=== PATIENT | male | born 1940 | race Caucasian/White ===

== ENCOUNTER 2017-08-06 12:57 | Emergency (ER) | payer MEDICARE, SELFPAY ==
[2017-08-06 14:04] VITALS: BP 140/68; PULSE 62; RESP 22; TEMP 37.1; O2SAT 95; BMI 34.9
--- NOTE | 2017-08-06 14:07 | XR_ITS ---
XR chest 2V Ordering Physician: Benita Eduardo Patient Age: 77 years: Male HISTORY: ITS.REASON: COUGH X2 MONTHS TECHNIQUE: PA and lateral chest COMPARISON : Previous 2 view chest film 01/09/2017 & June 2015 CT chest 11/27/2016 and portable chest 10/28/1816 FINDINGS When compared to multiple previous chest films I see no discrete new findings. Specifically the patient has shown some accentuation of markings at the medial left base and retrocardiac region of the stable back to CXR studies from 2014 & 2012 CXR & appears similar in both views. No convincing acute findings only mild chronic vascular markings here on prior CT chest . Mild cardiomegaly. Maite and mediastinal structures unchanged the generous right maite again noted but stable, similar to previous studies as well.. No pleural effusion or pneumothorax. Chest wall T-spine intact. IMPRESSION: 1 Nothing definite acute. . no focal acute pneumonia. Slight coarsening markings at the medial left base is been seen on multiple previous studies and thus appears to reflect mild chronic changes 2. Cardio megaly.
--- NOTE | 2017-08-06 14:30 | HMH.EDUTC ---
[facility] [place] Disposition Clinical Impression: Upper respiratory infection Qualifiers: URI type: unspecified URI Qualified Code(s): J06.9 - Acute upper respiratory infection, unspecified Disposition: Home, Self-Care Condition on Discharge: Good Instructions: Cough Additional Instructions: Follow up with family doctor Return if needed Take medication as prescribed * Warm salt water gargles for throat irritation *Warm fluids *Sore throat lozenges *Sleep elevated *humidifier or vaporizer Lots of rest Prescriptions: Azithromycin [Z-Willian 250mg Tab] 250 mg PO UD DOSE PK #6 tab Referrals: Saba Sosa MD [Primary Care Provider] - Time of Disposition: 15:15 Medical Decision Making - Medical Records Medical records reviewed: Yes: I reviewed the patient's medical records. Vital Signs: 08/06/17 14:04 Temperature 98.7 F Temperature Source Temporal Artery Scan Pulse Rate [Right Brachial] 62 Respiratory Rate 22 Blood Pressure [Right Arm] 140/68 Blood Pressure Mean [Right Arm] 92 Blood Pressure Source [Right Arm] Automatic Cuff Blood Pressure Position [Right Arm] Sitting 02 Sat by Pulse Oximetry 95 Oxygen Delivery Method Room Air - Radiology Data #1 Image(s): Chest - Rudolph Inquiry Pt receiving controlled substance: No Rudolph was queried for this patient: No [facility] [place] HPI - General Stated complaint: soa Mode of Arrival: Family Vehicle Source of Information: Patient Limitations: No Limitations Description of Symptoms (Recalled from Triage Doc. by RN): COUGH AND CONGESTION FOR 2 MONTHS. HEENT Symptoms (Recalled from RN notes): No Resp Symptoms (Recalled from RN notes): Yes (COUGH AND CONGESTION) Skin Symptoms (Recalled from RN notes): No MS Symptoms (Recalled from RN notes): No Functional Status (Recalled from RN notes): NA - History of Present Illness Provider Complaint: Patient state that he has been having cough and chest congestion for over 2 months State that he has seen family doctor several times and was given medication State that while he is taking the medication he feels better but as soon as he completes the medication it feels like he gets sick again - Related Data Home Medications Medication Instructions Recorded Confirmed Amlodipine Besylate [Norvasc 5mg 5 mg PO DAILYDM 08/06/17 08/06/17 tablet] Atorvastatin Calcium [Atorvastatin 10 mg PO DAILY 08/06/17 08/06/17 10mg Tab] Carvedilol [Carvedilol 25mg Tab] 25 mg PO DAILY 08/06/17 08/06/17 Lisinopril/Hydrochlorothiazide 12.5 mg PO DAILY 08/06/17 08/06/17 [Lisinopril-Hctz 20-12.5 mg Tab] Mycophenolate Mofetil [Cellcept] 250 mg PO BID 08/06/17 08/06/17 Previous Rx's Medication Instructions Recorded Azithromycin [Z-Willian 250mg Tab] 250 mg PO UD DOSE PK #6 tab 08/06/17 Allergies Allergy/AdvReac Type Severity Reaction Status Date / Time No Known Allergies Allergy Verified 08/06/17 14:12 - Worker's Comp Is this a Worker's Comp case?: No H History I have reviewed the patient's past medical history: Yes Amputation: No Fractures: No - *Social History Smoking Status: Never smoker Alcohol Intake: never - Psychiatric History Expresses thoughts of harming self/others: None Suicide Plan Description: No Plan ROS Obtained: Yes All systems reviewed & no additional complaints - Respiratory Respiratory: Yes chest congestion, Yes cough Physical Exam - General General appearance: alert, in no apparent distress - Chest Chest inspection: Present: normal inspection, symmetric chest wall rise. Absent: tenderness - Respiratory Respiratory exam: Present: wheezes. Absent: respiratory distress, accessory muscle use - Expanded Respiratory Exam Location: Lower: wheezes, rhonchi - Cardiovascular Cardiovascular exam: Present: regular rate, normal rhythm. Absent: JVD - Neurological Exam Neurological exam: Present: alert, oriented X3
--- NOTE | 2017-08-06 14:35 | ED_ITS ---
[facility] Disposition Clinical Impression: Upper respiratory infection Qualifiers: URI type: unspecified URI Qualified Code(s): J06.9 - Acute upper respiratory infection, unspecified Disposition: Home, Self-Care Condition on Discharge: Good Instructions: Cough Additional Instructions: Follow up with family doctor Return if needed Take medication as prescribed * Warm salt water gargles for throat irritation *Warm fluids *Sore throat lozenges *Sleep elevated *humidifier or vaporizer Lots of rest Prescriptions: Azithromycin [Z-Willian 250mg Tab] 250 mg PO UD DOSE PK #6 tab Referrals: Saba Sosa MD [Primary Care Provider] - Time of Disposition: 15:15 Medical Decision Making - Medical Records Medical records reviewed: Yes: I reviewed the patient's medical records. Vital Signs: 08/06/17 14:04 Temperature 98.7 F Temperature Source Temporal Artery Scan Pulse Rate [Right Brachial] 62 Respiratory Rate 22 Blood Pressure [Right Arm] 140/68 Blood Pressure Mean [Right Arm] 92 Blood Pressure Source [Right Arm] Automatic Cuff Blood Pressure Position [Right Arm] Sitting 02 Sat by Pulse Oximetry 95 Oxygen Delivery Method Room Air - Radiology Data #1 Image(s): Chest - Rudolph Inquiry Pt receiving controlled substance: No Rudolph was queried for this patient: No [facility] HPI - General Stated complaint: soa Mode of Arrival: Family Vehicle Source of Information: Patient Limitations: No Limitations Description of Symptoms (Recalled from Triage Doc. by RN): COUGH AND CONGESTION FOR 2 MONTHS. HEENT Symptoms (Recalled from RN notes): No Resp Symptoms (Recalled from RN notes): Yes (COUGH AND CONGESTION) Skin Symptoms (Recalled from RN notes): No MS Symptoms (Recalled from RN notes): No Functional Status (Recalled from RN notes): NA - History of Present Illness Provider Complaint: Patient state that he has been having cough and chest congestion for over 2 months State that he has seen family doctor several times and was given medication State that while he is taking the medication he feels better but as soon as he completes the medication it feels like he gets sick again - Related Data Home Medications Medication Instructions Recorded Confirmed Amlodipine Besylate [Norvasc 5mg 5 mg PO DAILYDM 08/06/17 08/06/17 tablet] Atorvastatin Calcium [Atorvastatin 10 mg PO DAILY 08/06/17 08/06/17 10mg Tab] Carvedilol [Carvedilol 25mg Tab] 25 mg PO DAILY 08/06/17 08/06/17 Lisinopril/Hydrochlorothiazide 12.5 mg PO DAILY 08/06/17 08/06/17 [Lisinopril-Hctz 20-12.5 mg Tab] Mycophenolate Mofetil [Cellcept] 250 mg PO BID 08/06/17 08/06/17 Previous Rx's Medication Instructions Recorded Azithromycin [Z-Willian 250mg Tab] 250 mg PO UD DOSE PK #6 tab 08/06/17 Allergies Allergy/AdvReac Type Severity Reaction Status Date / Time No Known Allergies Allergy Verified 08/06/17 14:12 - Worker's Comp Is this a Worker's Comp case?: No H History I have reviewed the patient's past medical history: Yes Amputation: No Fractures: No - *Social History Smoking Status: Never smoker Alcohol Intake: never - Psychiatric History Expresses thoughts of harming self/others: None Suicide Plan Description: No Plan ROS Obtained: Yes All systems review
== END 2017-08-06 15:23 | disposition home or self-care (01) ==
PROVIDERS: Emergency Provider Nurse Practitioner; Family Provider Family Medicine; PCP Family Medicine
DX: J06.9 Acute upper respiratory infection, unspecified (principal)
CPT/HCPCS: 71046; 99202; 99282

== ENCOUNTER → 2018-09-16 10:25 | Outpatient (CLI) | payer MEDICARE, SELFPAY ==
[2018-09-16 10:34] LABS: Microscopic, Urine URINE MICROSCOPIC (MICROSCOPIC)
[2018-09-16 10:50] LABS: Basophils # 0.1 K/mm3 (0-0.2); Basophils % 0.7 % (0.1-2.0); Eosinophils # 0.4 K/mm3 (0.0-0.4); Eosinophils % 4.1 % (0.1-12.0); Hematocrit 38.8 % (42.0-52.0); Hemoglobin 12.6 g/dL (14.1-18.0); Lymphocytes # 2.3 K/mm3 (0.7-4.5); Lymphocytes % 26.7 % (10-50); Mean Corpuscular HGB Conc 32.4 g/dL (31.8-35.4); Mean Corpuscular Hemoglobin 28.5 pg (27.0-31.2); Mean Corpuscular Volume 87.9 fl (80-94); Mean Platelet Volume 8.4 fl (7.4-10.4); Monocytes # 0.7 K/mm3 (0.1-1.0); Monocytes % 7.8 % (1.7-9.3); Neutrophils # 5.2 K/mm3 (1.8-7.8); Neutrophils % 60.8 % (37.0-80.0); Platelet Count 226 K/mm3 (142-424); Red Blood Count 4.41 M/mm3 (4.60-6.20); Red Cell Distribution Width 14.1 % (11.5-17.5); White Blood Count 8.6 K/mm3 (4.8-10.8)
[2018-09-16 10:53] LABS: Appearance,Urine CLEAR (Clear); Bilirubin,Urine Negative (Negative); Blood, Urine Negative (Negative); Color,Urine YELLOW (Yellow); Glucose,Urine (UA) Negative (Negative); Ketones,Urine Negative (Negative); Leukocyte Esterase,Urine Negative (Negative); Nitrate,Urine Negative (Negative); PH,Urine 6.5 (5.0-8.5); Protein,Urine Negative (Negative); Urobilinogen,Urine 0.2 EU/dl (0.2)
[2018-09-16 11:02] LABS: Creatinine,Urine Random 63 mg/dL (20-320); Total Protein,Urine Random 10.9 mg/dL (0.0-11.9)
[2018-09-16 11:07] LABS: Bacteria,Urine Trace /lpf; Squamous Epithelial Cell,Urine Occasional #/hpf (0-5); WBC,Urine Occasional #/hpf (0-3)
[2018-09-16 11:46] LABS: Anion Gap 14.7 mEq/L (5-15); Blood Urea Nitrogen 41 mg/dL (7-18); Calcium 9.9 mg/dL (8.5-10.1); Carbon Dioxide 30 mmol/L (21.0-32.0); Chloride 105 mmol/L (98-107); Creatinine,Serum 2.15 mg/dL (0.70-1.30); Estimated Glomerular Filt Rate 30 ml/min (>60); GFR (African American) 36 ML/MIN (>60); Phosphorous 3.7 mg/dL (2.4-4.9); Potassium 3.7 mmoL/L (3.5-5.1); Sodium 146 mmol/L (136-145)
[2018-09-16 11:58] LABS: Glucose 91 mg/dL (74-106)
[2018-09-17 07:32] LABS: Vitamin D 25 Hydroxy 30.1 ng/mL (30.0-100.0)
[2018-09-17 15:32] LABS: Parathyroid Hormone Intact 53 pg/mL (15-65)
== END ==
PROVIDERS: Visit Provider Internal Medicine Nephrology
DX: N18.4 Chronic kidney disease, stage 4 (severe) (principal)
CPT/HCPCS: 36415; 80069; 81001; 82570; 82652; 83970; 84155; 85025

== ENCOUNTER → 2018-09-23 14:19 | Outpatient (POV) | payer MEDICARE, SELFPAY | PROVIDERS: Visit Provider Internal Medicine Nephrology | DX: Z00.00 Encounter for general adult medical examination without abnormal findings (principal) ==

== ENCOUNTER → 2018-11-25 14:15 | Outpatient (POV) | payer MEDICARE, SELFPAY | PROVIDERS: Visit Provider Internal Medicine Nephrology | DX: Z00.00 Encounter for general adult medical examination without abnormal findings (principal) ==

== ENCOUNTER → 2018-12-12 10:39 | Outpatient (CLI) | payer MEDICARE, SELFPAY ==
[2018-12-12 11:59] LABS: Creatinine,Urine Random 98 mg/dL (20-320); Total Protein,Urine Random 8.8 mg/dL (0.0-11.9)
[2018-12-12 12:46] LABS: Anion Gap 16.6 mEq/L (5-15); Blood Urea Nitrogen 47 mg/dL (7-18); Calcium 9.3 mg/dL (8.5-10.1); Carbon Dioxide 28 mmol/L (21.0-32.0); Chloride 104 mmol/L (98-107); Creatinine,Serum 2.49 mg/dL (0.70-1.30); Estimated Glomerular Filt Rate 25 ml/min (>60); GFR (African American) 30 ML/MIN (>60); Glucose 98 mg/dL (74-106); Phosphorous 3.2 mg/dL (2.4-4.9); Potassium 3.6 mmoL/L (3.5-5.1); Sodium 145 mmol/L (136-145)
== END ==
PROVIDERS: Visit Provider Internal Medicine Nephrology
DX: N18.4 Chronic kidney disease, stage 4 (severe) (principal)
CPT/HCPCS: 36415; 80069; 82570; 84155

== ENCOUNTER → 2019-01-07 08:34 | Outpatient (CLI) | payer MEDICARE, SELFPAY ==
--- NOTE | 2019-01-07 08:40 | XR_ITS ---
XR chest 2V HISTORY: ITS.REASON: SOB ORDERING PHYSICIAN: Saba Sosa MD PATIENT AGE: 79 years COMPARISON: 10/30/2018 FINDINGS: There is mild cardiomegaly without failure. There are mild atelectatic changes in the right perihilar region. The remaining lungs are clear. No acute bony findings. IMPRESSION: Cardiomegaly with mild right perihilar atelectatic change
== END ==
PROVIDERS: PCP Family Medicine; Visit Provider Family Medicine
DX: R06.02 Shortness of breath (principal)
CPT/HCPCS: 71046

== ENCOUNTER → 2019-01-15 08:01 | Outpatient (CLI) | payer MEDICARE, SELFPAY ==
[2019-01-15 09:25] LABS: Albumin Level 3.7 gm/dL (3.4-5.0); Anion Gap 16.5 mEq/L (5-15); Blood Urea Nitrogen 50 mg/dL (7-18); Calcium 9.2 mg/dL (8.5-10.1); Carbon Dioxide 27 mmol/L (21.0-32.0); Chloride 103 mmol/L (98-107); Creatinine,Serum 2.45 mg/dL (0.70-1.30); Estimated Glomerular Filt Rate 25 ml/min (>60); GFR (African American) 31 ML/MIN (>60); Glucose 174 mg/dL (74-106); Phosphorous 3.4 mg/dL (2.4-4.9); Potassium 3.5 mmoL/L (3.5-5.1); Sodium 143 mmol/L (136-145)
[2019-01-15 12:53] LABS: Creatinine,Urine Random 67 mg/dL (20-320); Total Protein,Urine Random 10.2 mg/dL (0.0-11.9)
== END ==
PROVIDERS: Visit Provider Internal Medicine Nephrology
DX: N18.4 Chronic kidney disease, stage 4 (severe) (principal)
CPT/HCPCS: 36415; 80069; 82570; 84155

== ENCOUNTER → 2019-01-21 10:34 | Outpatient (CLI) | payer MEDICARE, SELFPAY ==
--- NOTE | 2019-01-21 10:37 | CA_ITS ---
PROCEDURE: 2-D M-mode and color Doppler study INDICATIONS FOR THE TEST: Chest pain COPD Heart Murmur Tobacco SmokingEX Palpitations Fatigue Syncope Edema HypertensionXDiabetes MellitusXX Rheumatic Fever SOBXDOEXObesityXHyperlipidemia Family History HD Additional History CHF TDS OBESITY PATIENT INFORMATION HEIGHT: 69 WEIGHT:240 GENDER: Male B/P:184/78 2-D/M-MODE INTERPRETATION: 2-D MEASUREMENTS OBSERVED VALUES IN CMS Right Ventricular Dimension (RVDd) 2.0 Interventricular Septum (Thickness)(IVsd) 1.0 Left Ventricular Internal Dimensions(LVIDd) 5.0 Left Ventricular Posterior Wall (Thickness)(LVPWd) 1.0 Aortic Root 4.0 Aortic Cusp Separation 1.2 Left Atrial Dimensions (LAD) 3.0 2D 1. Left atrium is mildly enlarged, left ventricle is normal size, visually estimated ejection fraction of 50% with no obvious regional wall motion abnormality, endocardial surfaces are poorly visualized 2. The right atrium and right ventricle are mildly enlarged with normal contractility. 3. The aortic valve is minimally thickened and fibrosed. 4. The mitral and tricuspid valve leaflets are minimally thickened 5. The pulmonic valve is poorly present. 6. No significant pericardial effusion noted. DOPPLER INTERROGATION: Doppler interrogation of the aortic, mitral and tricuspid valvular presence of mild mitral and tricuspid regurgitation, tricuspid regurgitation jet velocity is inadequate for calculation of the right ventricular systolic pressure, grade 2 diastolic dysfunction seen with tissue Doppler evidence of raised left atrial pressure. Inferior vena cava is not well visualized CONCLUSION: 1. Biatrial enlargement, normal left ventricular size, visually estimated ejection fraction 50% with no regional wall motion abnormality, grade 2 diastolic dysfunction seen with tissue Doppler evidence of raised left atrial pressure. 2. Thickened and calcified aortic valve without aortic stenosis aortic insufficiency. 3. Mild mitral and tricuspid regurgitation 4. No significant pericardial effusion noted.
== END ==
PROVIDERS: PCP Family Medicine; Visit Provider Family Medicine
DX: R06.02 Shortness of breath (principal); I50.9 Heart failure, unspecified
CPT/HCPCS: 93306

== ENCOUNTER → 2019-01-29 13:57 | Outpatient (POV) | payer MEDICARE, SELFPAY | PROVIDERS: Visit Provider Internal Medicine Nephrology | DX: Z00.00 Encounter for general adult medical examination without abnormal findings (principal) ==

== ENCOUNTER → 2019-04-08 08:42 | Outpatient (CLI) | payer MEDICARE, SELFPAY ==
--- NOTE | 2019-04-08 08:51 | XR_ITS ---
PROCEDURE: XR CERVICAL SPINE 5V CLINICAL INDICATION: LT ARM PAIN, COMPARISON: No exams were available for comparison FINDINGS: There is normal alignment. There has been prior fusion of C5 and C6 vertebral bodies. There is mild degenerative disc disease at C6-C7. There is mild retrolisthesis of C3 on C4 of 3 mm. Mild foraminal narrowing is noted on the right at C3-C4. No fracture or dislocation. No lytic or blastic change. Incidental note made of carotid artery calcification. No cervical ribs. IMPRESSION: Postsurgical changes with mild degenerative disc disease at C6-C7 and mild right foraminal narrowing at C3-C4 Dictated by: Xiang Zayas MD 04/08/2019 09:53 Electronically signed by Xiang Zayas MD in [place] 04/08/2019 09:53
== END ==
PROVIDERS: PCP Family Medicine; Visit Provider Family Medicine
DX: M79.602 Pain in left arm (principal)
CPT/HCPCS: 72050

== ENCOUNTER → 2019-04-22 08:54 | Outpatient (CLI) | payer MEDICARE, SELFPAY ==
[2019-04-22 09:22] LABS: Basophils % 0.6 % (0.1-2.0); Eosinophils # 0.2 K/mm3 (0.0-0.4); Eosinophils % 3.5 % (0.1-12.0); Hematocrit 37.3 % (42.0-52.0); Hemoglobin 11.7 g/dL (14.1-18.0); Lymphocytes # 2.4 K/mm3 (0.7-4.5); Lymphocytes % 36.1 % (10-50); Mean Corpuscular HGB Conc 31.4 g/dL (31.8-35.4); Mean Corpuscular Hemoglobin 27.8 pg (27.0-31.2); Mean Corpuscular Volume 88.4 fl (80-94); Mean Platelet Volume 7.8 fl (7.4-10.4); Monocytes # 0.4 K/mm3 (0.1-1.0); Monocytes % 6.8 % (1.7-9.3); Neutrophils # 3.5 K/mm3 (1.8-7.8); Neutrophils % 53.1 % (37.0-80.0); Platelet Count 243 K/mm3 (142-424); Red Blood Count 4.21 M/mm3 (4.60-6.20); Red Cell Distribution Width 14.9 % (11.5-17.5); White Blood Count 6.6 K/mm3 (4.8-10.8)
[2019-04-22 10:34] LABS: Anion Gap 16.8 mEq/L (5-15); Blood Urea Nitrogen 54 mg/dL (7-18); Calcium 9.4 mg/dL (8.5-10.1); Carbon Dioxide 26 mmol/L (21.0-32.0); Chloride 102 mmol/L (98-107); Creatinine,Serum 2.56 mg/dL (0.70-1.30); Estimated Glomerular Filt Rate 24 ml/min (>60); GFR (African American) 29 ML/MIN (>60); Glucose 164 mg/dL (74-106); Phosphorous 4.1 mg/dL (2.4-4.9); Potassium 3.8 mmoL/L (3.5-5.1); Sodium 141 mmol/L (136-145)
== END ==
PROVIDERS: Visit Provider Internal Medicine Nephrology
DX: N18.4 Chronic kidney disease, stage 4 (severe) (principal)
CPT/HCPCS: 36415; 80069; 85025

== ENCOUNTER → 2019-04-23 15:27 | Outpatient (POV) | payer MEDICARE, SELFPAY | PROVIDERS: Visit Provider Internal Medicine Nephrology | DX: Z00.00 Encounter for general adult medical examination without abnormal findings (principal) ==

== ENCOUNTER → 2019-09-17 09:47 | Outpatient (CLI) | payer MEDICARE, SELFPAY ==
[2019-09-17 11:28] LABS: Albumin Level 4.1 g/dl (3.5-5.0); Chloride 104 mmol/L (98-107); Potassium 3.8 mmoL/L (3.5-5.1); Sodium 143 mmol/L (136-145)
[2019-09-17 11:31] LABS: Anion Gap 13.8 mEq/L (5-15); Blood Urea Nitrogen 36 mg/dl (9-20); Calcium 9.9 mg/dl (8.4-10.2); Carbon Dioxide 29 mmol/L (22.0-30.0); Estimated Glomerular Filt Rate 29 ml/min (>60); GFR (African American) 35 ML/MIN (>60); Glucose 118 mg/dl (74-100)
== END ==
PROVIDERS: Visit Provider Internal Medicine Nephrology
DX: N18.4 Chronic kidney disease, stage 4 (severe) (principal)
CPT/HCPCS: 36415; 80069

== ENCOUNTER → 2019-09-24 13:33 | Outpatient (POV) | payer MEDICARE, SELFPAY | PROVIDERS: PCP Internal Medicine Nephrology; Visit Provider Internal Medicine Nephrology | DX: Z00.00 Encounter for general adult medical examination without abnormal findings (principal) ==

== ENCOUNTER → 2019-12-24 09:35 | Outpatient (CLI) | payer MEDICARE, SELFPAY ==
--- NOTE | 2019-12-24 09:51 | XR_ITS ---
PROCEDURE: XR CHEST CHP 1V CLINICAL HISTORY: COVID TESTING Cough and fever with weakness COMPARISON: WO CT CHEST W/O CONTRAST from 11/27/2016 CXR CHEST(2 VIEWS-NOT PORTABLE) from 01/09/2017 CXR2V XR chest 2V from 08/06/2017 CXR1VP XR chest portable from 10/30/2018 FINDINGS: The there is cardiomegaly without failure. There is overall increased density of the right lung compared to the left which in part may be due to the technique. There is however suspected infiltrate in the right perihilar and right lower lobe region. The left lung is clear. There are multiple small opacities overlying the lower cervical spine and may be due to prior surgery IMPRESSION: Suspected right perihilar and right lower lobe infiltrate/pneumonia Dictated by: Xiang Zayas MD 12/24/2019 10:07 Electronically signed by Xiang Zayas MD in [place] 12/24/2019 10:07
[2019-12-24 10:57] LABS: Coronavirus 19 IgG Antibody Negative (Negative); Coronavirus 19 IgM Antibody Negative (Negative)
== END ==
PROVIDERS: PCP Family Medicine; Visit Provider Family Medicine
DX: Z03.818 Encounter for observation for suspected exposure to other biological agents ruled out (principal)
CPT/HCPCS: 36415; 71010; 86328

== ENCOUNTER 2020-02-26 19:00 | Emergency (ER) | payer MEDICARE, SELFPAY ==
[2020-02-26 19:02] VITALS: BP 139/74; PULSE 86; RESP 16; TEMP 37; O2SAT 98; BMI 32.5
[2020-02-26 19:47] LABS: Microscopic, Urine URINE MICROSCOPIC (MICROSCOPIC)
--- NOTE | 2020-02-26 19:58 | CT_ITS ---
PROCEDURE: CT ABDOMEN PELVIS WO CON CLINICAL INDICATION: blood in urine Gross hematuria COMPARISON: No exams were available for comparison TECHNIQUE: Axial images obtained with sagittal and coronal reformats. All CT scans at the facility use one or more dose reduction, viz: automated exposure control, ma/kV adjustment per patient size (including targeted exams where dose is matched to indication, i.e. head), or iterative reconstruction technique. FINDINGS: LOWER THORAX: Coronary artery calcifications which are extensive. 9 mm noncalcified nodule right middle lobe. ABDOMEN & PELVIS: The liver, gallbladder, spleen, adrenal glands, and pancreas have an unremarkable unenhanced appearance. There are multiple bilateral renal cyst measuring up to 5 cm on the left and 5 cm on the right.. No renal or ureteral calculi. No hydronephrosis. There is a Everett catheter in place. The urinary bladder is collapsed. There is some increased density within the urinary bladder which could be due to some underlying hemorrhage. There is a small amount of intraluminal gas also noted. There is thickening of the urinary bladder wall. No intestinal obstruction or free air. There is mild increased density of the central mesenteric fat with scattered small mesenteric lymph nodes nonspecific no evidence of appendicitis. There is colonic diverticulosis but no evidence of diverticulitis degenerative changes are present in the lumbar spine. IMPRESSION: 1. Decompressed urinary bladder with Everett catheter with a small amount of intraluminal bladder gas which could be due to instrumentation or superimposed infection. Small amount of mildly hyperdense intraluminal bladder material noted adjacent to the tip of the Everett catheter suggestive of blood. Diffuse bladder wall thickening which could be related to under distension and or cystitis. 2. Bilateral renal cysts with nonspecific stranding of the perinephric renal fat. 3. 9 mm right middle lobe nodule. Recommend [address] without and with contrast follow-up 4. Slight increased density of the mesenteric fat centrally with small nodes nonspecific but could be seen with mesenteric adenitis Dictated b Xiang Zayas MD 02/27/2020 05:32 Xiang Zayas MD in [place] 02/27/2020 05:32
[2020-02-26 20:02] VITALS: BP 134/73; PULSE 81; RESP 16; O2SAT 98
[2020-02-26 20:07] LABS: Basophils # 0.1 K/mm3 (0-0.2); Basophils % 0.7 % (0.1-2.0); Chloride 103 mmol/L (98-107); Eosinophils # 0.3 K/mm3 (0.0-0.4); Eosinophils % 4.8 % (0.1-12.0); Hemoglobin 13.5 g/dL (14.1-18.0); Lymphocytes # 2.1 K/mm3 (0.7-4.5); Lymphocytes % 29.9 % (10-50); Mean Corpuscular HGB Conc 34.7 g/dL (31.8-35.4); Mean Corpuscular Hemoglobin 30.6 pg (27.0-31.2); Mean Corpuscular Volume 88.2 fl (80-94); Mean Platelet Volume 8.2 fl (7.4-10.4); Monocytes # 0.5 K/mm3 (0.1-1.0); Monocytes % 7.4 % (1.7-9.3); Neutrophils # 3.9 K/mm3 (1.8-7.8); Neutrophils % 57.2 % (37.0-80.0); Platelet Count 204 K/mm3 (142-424); Red Blood Count 4.42 M/mm3 (4.60-6.20); Red Cell Distribution Width 14.3 % (11.5-17.5); Sodium 141 mmol/L (136-145); White Blood Count 6.9 K/mm3 (4.8-10.8)
[2020-02-26 20:10] LABS: Alanine Aminotransferase 23 U/L (12-78); Albumin Level 4.2 g/dl (3.5-5.0); Albumin/Globulin Ratio 1.4 (1.1-1.8); Alkaline Phosphatase 94 U/L (38-126); Aspartate Amino Transferase 31 U/L (17-59); Bilirubin,Total 0.6 mg/dl (0.2-1.3); Blood Urea Nitrogen 34 mg/dl (9-20); Calcium 9.8 mg/dl (8.4-10.2); Carbon Dioxide 29 mmol/L (22.0-30.0); Creatinine Clearance Estimated 40 mL/min (50-200); Estimated Glomerular Filt Rate 32 ml/min (>60); GFR (African American) 39 ML/MIN (>60); Glucose 139 mg/dl (74-100); Total Protein,Serum 7.2 g/dl (6.3-8.2)
[2020-02-26 20:18] LABS: Bilirubin,Urine Negative (Negative); Blood, Urine 3+ (Negative); Glucose,Urine (UA) Negative (Negative); Ketones,Urine Negative (Negative); Leukocyte Esterase,Urine Negative (Negative); Nitrate,Urine Negative (Negative); Protein,Urine 2+ (Negative); Urobilinogen,Urine 0.2 EU/dl (0.2)
[2020-02-26 20:23] LABS: Color,Urine Red (Yellow)
[2020-02-26 20:24] LABS: Appearance,Urine Cloudy (Clear); Bacteria,Urine Trace /lpf; RBC,Urine TNTC #/hpf (0-3); Squamous Epithelial Cell,Urine Occasional #/hpf (0-5); WBC,Urine Occasional #/hpf (0-3)
[2020-02-26 21:06] VITALS: BP 137/84; PULSE 79; RESP 15; O2SAT 97
--- NOTE | 2020-02-26 22:04 | HMH.EDUROGM ---
ED Disposition Clinical Impression: Urinary tract infection, Prostatitis, Urinary retention Disposition: Home, Self-Care Condition on Discharge: Good Instructions: DI for Urinary Tract Infection (UTI), DI for Urinary Tract Infection in Children Additional Instructions: Please call Dr. Schilling's office in the morning for an appointment. Prescriptions: Ciprofloxacin HCl [Cipro 500mg Tab] 500 mg PO BID 10 Days #20 tab Transmission Status: Pending to [id number] Tamsulosin HCl [Flomax 0.4mg capsule] 0.4 mg PO HS #30 cap Transmission Status: Pending to [id number] Referrals: Saba Sosa MD [Primary Care Provider] - - Critical Care Critical Care Time: No Attestation: On 02/26/20, the high probability of a clinically significant, sudden or life threatening deterioration of the following system(s) required my full and direct attention, intervention and personal management. The time I documented below is in addition to time spent performing reported procedures but includes the following listed in this critical care notation. Medical Decision Making - Medical Records Medical records reviewed: Yes: I reviewed the patient's medical records. - Rudolph Inquiry Pt receiving controlled substance: No Vital Signs: 02/26/20 19:02 Temperature 98.6 F Temperature Source Oral Pulse Rate [Left Radial] 86 Respiratory Rate 16 Blood Pressure [Right Arm] 139/74 Blood Pressure Mean [Right Arm] 95 Blood Pressure Source [Right Arm] Automatic Cuff Blood Pressure Position [Right Arm] Sitting 02 Sat by Pulse Oximetry 98 Oxygen Delivery Method Room Air - Lab Data Lab results reviewed: Yes: I reviewed the patient's lab results. Lab Results 02/26/20 19:40: Urine Color Red, Urine Appearance Cloudy, Urine pH 7.0, Ur Specific Herlong 1.020, Urine Protein 2+, Urine Glucose (UA) Negative, Urine Ketones Negative, Urine Blood 3+, Urine Nitrate Negative, Urine Bilirubin Negative, Urine Urobilinogen 0.2, Ur Leukocyte Esterase Negative, Urine RBC Tntc, Urine WBC Occasional, Ur Squamous Epith Cells Occasional, Urine Bacteria Trace 02/26/20 19:55: WBC 6.9, RBC 4.42 L, Hgb 13.5 L, Hct 39.0 L, MCV 88.2, MCH 30.6, MCHC 34.7, RDW 14.3, Plt Count 204, MPV 8.2, Neut % (Auto) 57.2, Lymph % (Auto) 29.9, [place] % (Auto) 7.4, Eos % (Auto) 4.8, Baso % (Auto) 0.7, Neut # (Auto) 3.9, Lymph # (Auto) 2.1, [place] # (Auto) 0.5, Eos # (Auto) 0.3, Baso # (Auto) 0.1 02/26/20 19:55: Sodium 141, Potassium 4.0, Chloride 103, Carbon Dioxide 29, Anion Gap 13.0, BUN 34 H, Creatinine 2.00 H, Estimated Creat Clear 40, Estimated GFR 32 L, Est GFR ( Amer) 39 L, Glucose 139 H, Calcium 9.8, Total Bilirubin 0.6, AST 31, ALT 23, Alkaline Phosphatase 94, Total Protein 7.2, Albumin 4.2, Globulin 3.0, Albumin/Globulin Ratio 1.4 Result diagrams: 02/26/20 19:55 02/26/20 19:55 Orders (Tests/Meds): ORDERS Category Date Time Status CT abdomen pelvis wo con Stat Cat Scan 02/26/20 19:58 Taken - CT Data CT Scan: Abdomen, Pelvis Time Received: 22:07 Preliminary Findings: Abnormal (Patient has some hypodense areas around the bladder with some bladder wall thickening, some riri-fat stranding which is nonspecific but could include infection he does have a pulmonary nodule 1.9 cm otherwise negative exam) Male Urogenital HPI - General Chief complaint: Urogenital-Male Stated complaint: Problems with Kidneys,with bleeding Time Seen by Provider: 02/26/20 22:00 Mode of Arrival: Ambulatory Limitations: No Limitations Description of Symptoms (Recalled from ER Triage Doc. by RN): pt stated he has been passing blood when he urinates since this morning and since 4pm he hasnt been able to urinate at all. pt stated when he tries to urinated he just passes small drops of blood. pt denies any pain while urinating or abd. pain at this time. - History of Present Illness HPI Narrative: 80-year-old gentleman presents with an acute onset of urinary retention and
[2020-02-26 22:31] VITALS: BP 141/81; PULSE 86; RESP 16; TEMP 36.9; O2SAT 98
== END 2020-02-26 22:32 | disposition home or self-care (01) ==
PROVIDERS: Emergency Provider Emergency Medicine; PCP Family Medicine
DX: N30.01 Acute cystitis with hematuria (principal); N41.0 Acute prostatitis; I10 Essential (primary) hypertension; E78.5 Hyperlipidemia, unspecified; Z87.891 Personal history of nicotine dependence; Z79.899 Other long term (current) drug therapy
CPT/HCPCS: 74176; 80053; 81001; 85025; 99284

== ENCOUNTER → 2020-02-27 13:53 | Outpatient (CLI) | payer MEDICARE, SELFPAY ==
[2020-02-27 16:14] LABS: Coronavirus 19 IgG Antibody Negative (Negative); Coronavirus 19 IgM Antibody Negative (Negative)
== END ==
PROVIDERS: Visit Provider Urology
DX: R31.9 Hematuria, unspecified (principal); Z03.818 Encounter for observation for suspected exposure to other biological agents ruled out
CPT/HCPCS: 36415; 86328

== ENCOUNTER 2020-02-28 18:56 | Emergency (ER) | payer MEDICARE, SELFPAY ==
[2020-02-28 19:06] VITALS: BP 183/79; PULSE 80; RESP 14; TEMP 36.8; O2SAT 97; BMI 32.5
--- NOTE | 2020-02-28 19:12 | HMH.EDUTC ---
[facility] [place] [facility] [place] Clinical Impression: Urinary retention Disposition: Home, Self-Care Condition on Discharge: Good Instructions: DI for Hematuria Referrals: Saba Sosa MD [Primary Care Provider] - Time of Disposition: 19:33 Medical Decision Making - Rudolph Inquiry Pt receiving controlled substance: No Vital Signs: 02/28/20 19:06 Temperature 98.3 F Temperature Source Oral Pulse Rate [Radial] 80 Respiratory Rate 14 Blood Pressure [Right Arm] 183/79 H Blood Pressure Mean [Right Arm] 113 Blood Pressure Source [Right Arm] Automatic Cuff Blood Pressure Position [Right Arm] Sitting 02 Sat by Pulse Oximetry 97 Oxygen Delivery Method Room Air [facility] [place] [facility] [place] - General Chief complaint: [facility] Stated complaint: Leaking cath Time Seen by Provider: 02/28/20 19:12 Mode of Arrival: Ambulatory Source of Information: Patient Limitations: No Limitations Description of Symptoms (Recalled from Triage Doc. by RN): catheter leakage HEENT Symptoms (Recalled from RN notes): No Resp Symptoms (Recalled from RN notes): No Skin Symptoms (Recalled from RN notes): No MS Symptoms (Recalled from RN notes): No Functional Status (Recalled from RN notes): wnl - History of Present Illness Provider Complaint: 80 yr old male presents for cath leaking. Pt states he is having surgery on sunday and noticed his cath was leaking around the tube. - Related Data Home Medications Medication Instructions Recorded Confirmed Amlodipine Besylate [Norvasc 5mg 5 mg PO DAILYDM 08/06/17 10/03/19 tablet] Atorvastatin Calcium [Atorvastatin 10 mg PO DAILY 08/06/17 10/03/19 10mg Tab] Lisinopril/Hydrochlorothiazide 12.5 mg PO DAILY 08/06/17 10/03/19 [Lisinopril-Hctz 20-12.5 mg Tab] carvediloL [Carvedilol 25mg Tab] 25 mg PO DAILY 08/06/17 10/03/19 mycophenolate mofetiL [Cellcept] 250 mg PO BID 08/06/17 10/03/19 furosemide 40 mg tablet 40 mg PO BID 02/27/20 02/27/20 potassium chloride 10 mEq 10 meq PO DAILY 02/27/20 02/27/20 capsule,extended release Previous Rx's Medication Instructions Recorded Ciprofloxacin HCl [Cipro 500mg 500 mg PO BID 10 Days #20 tab 02/26/20 Tab] Tamsulosin HCl [Flomax 0.4mg 0.4 mg PO HS #30 cap 02/26/20 capsule] Allergies Allergy/AdvReac Type Severity Reaction Status Date / Time No Known Allergies Allergy Verified 02/27/20 12:32 - Worker's Comp Is this a Worker's Comp case?: No [facility] History - Hepatitis A Screen Drug use history?: No High risk sexual behaviors?: No History of sexually transmitted infection?: No Currently employed?: No Childcare worker?: No Do you have indoor plumbing?: Yes Do you have electricity?: Yes Attestation statement:: This patient has been screened for Hepatitis A risk factors. I have reviewed the patient's past medical history: Yes Medical History: Reports:: Coronary Artery Disease, Hyperlipidemia, Hypertension, Kidney Stones, Renal Disease Denies:: Cancer, Diabetes Mellitus Type 1, Diabetes Mellitus Type 2, Internal Pacemaker, MRSA Other Medical History: Reports: Arthritis Comment: auto immune disease since 2006 Other Surgeries: Yes: No Previous Surgery, Cardiac Catheterization, Colonoscopy. No: Pacemaker Amputation: No Fractures: No - Social History Smoking Status: Former smoker Tobacco Type: cigarettes Alcohol Intake: never Substance Use Type: denies use Occupational Status: disabled Housing: house Household Members: spouse Family Hx:: Cancer, Diabetes, Heart Attack, Hyperlipidemia, Hypertension ROS Obtained: Yes Systems reviewed as appropriate & no additional complaints - Constitutional Constitutional: Reports system reviewed and no additional complaints, except as docu, Denies chills, Denies fever(s) - Eyes Eyes: Reports system reviewed and no additional complaints, except as docu, Denies change in vision - ENT Ears, Nose, Mouth, and Throat: Reports system reviewed and no additional complaints, except as docu, Quirino
[2020-02-28 20:17] VITALS: BP 183/79; PULSE 80; RESP 14; TEMP 36.8; O2SAT 97
== END 2020-02-28 20:20 | disposition home or self-care (01) ==
PROVIDERS: Emergency Provider Nurse Practitioner Family; PCP Family Medicine
DX: T83.038A Leakage of other urinary catheter, initial encounter (principal); R33.8 Other retention of urine; E78.5 Hyperlipidemia, unspecified; I10 Essential (primary) hypertension; Z87.442 Personal history of urinary calculi; Z87.891 Personal history of nicotine dependence; Z79.899 Other long term (current) drug therapy
CPT/HCPCS: G0463; 99201

== ENCOUNTER 2020-03-01 06:50 | Day surgery (SDC) | payer MEDICARE, SELFPAY ==
[2020-03-01] VITALS (10 sets, daily range): BP systolic 132–147; BP diastolic 50–70; PULSE 55–64; RESP 12–21; TEMP 36.3–36.7; O2SAT 95–98; BMI 32.5
--- NOTE | 2020-03-01 07:37 | P.PN_ITS ---
[facility] Anesthesia Checklist - Structural Data Admitted From: Home Planned Operative Procedure/s: turbt Consent for Planned Operative Procedure(s) Verified: Yes - Additional verifications Anesthesia Reactions: No Hx Blood Transfusions: No Blood Transfusion Reaction: No - Airway Assessment C-Spine Mobility Assessed: Yes TMJ Mobility Assessed: Yes Dentition: Dentures-good fit - Neurological Assessment Level of Consciousness: Awake, Alert, Appropriate - Anesthesia Plan Anesthesia Risk discussed: Yes Anesthesia Plan: Verified ASA Class: III Anesthesia Type: General [facility] History I have reviewed the patient's past medical history: Yes Medical History: Reports:: Cancer (bladder), Coronary Artery Disease, Hyperlipidemia, Hypertension, Kidney Stones, Renal Disease Denies:: Diabetes Mellitus Type 1, Diabetes Mellitus Type 2, Internal Pacemaker, MRSA, Seizures *Have you ever received a pneumonia vaccine?: Yes *Have you received a flu vaccine this season?: Yes Other Medical History: Reports: Arthritis. Denies: Blood Transfusion Reaction Anesthesia experience/problems:: none Other Surgeries: Yes: No Previous Surgery, Cardiac Catheterization, Colonoscopy. No: Pacemaker Amputation: No Fractures: No - *Social History Last grade of school completed: High school graduate Smoking Status: Never smoker Tobacco Type: cigarettes Alcohol Intake: never Substance Use Type: denies use *Occupational Status:: retired Housing: house Household Members: spouse *Travel in the last 8 weeks: None Family Hx:: Cancer, Hyperlipidemia, Hypertension
--- NOTE | 2020-03-01 09:25 | HMH.ANESI ---
[facility] Anesthesia Record Part I Intake, IV Amount: 500 Estimated blood loss (mL): 0 Urine output (mL): 0 Blood Pressure: 139/50 SaO2: 96 Pulse Rate: 62 Respiratory Rate: 12 Temperature: 98 F Patient is:: Awake, Stable Stable to PACU at:: 09:20
--- NOTE | 2020-03-01 10:20 | SUR.PHASEII ---
Per Dr. Schilling order, F/C discontinued without difficulty. No C/O. Urine pale pinkinsh yellow, clear.
--- NOTE | 2020-03-01 16:31 | HMH.ANESII ---
[facility] Anesthesia Record Part II Discharge Time: 09:58 Destination: Surgical Day Care (OP Surgery) PACU nurse assessment reviewed?: Yes Patient Condition:: Good Anesthesia Complications:: None Swallowing reflex intact?: Yes Cyanosis?: No Blood Pressure: 147/61 Pulse Rate: 57 Temperature: 97.6 F Mental Status: Alert & Oriented Pain level:: 0 Nausea and/or vomitting:: None Intake, IV Amount: 0
--- NOTE | 2020-03-01 16:45 | P.OP_ITS ---
Date of procedure: 03/01/20 Pre-op Diagnosis:: Gross hematuria Post-op Diagnosis:: Recurrent bladder cancer Procedure performed:: TURBT less than 1 cm Surgeon:: Catarino Schilling MD PERSONAL INJURY SPECIALIST:: Chucho Gamble Anesthesia: GETA Estimated blood loss (mL): 0 Clinical Note:: 80-year-old white male with history of bladder cancer has had some recent gross hematuria. He has not been scoped in 3 to 4 years now and presents for evaluation. Operative findings:: Small amount of tissue at 6 o'clock position just inside the bladder neck appear ed consistent with bladder cancer. There was some erythema of the posterior bladder consistent with Everett irritation. Operative note:: Patient taken to the operating room after informed consent was obtained. Is placed on the operating table in the supine position and general anesthesia administered. Preoperative antibiotics and sequential compression devices placed. He was then placed into the dorsal lithotomy position prepped draped in the standard surgical fashion. The 22 Bulgar[place] cystoscope passed into the urethra and into the bladder without difficulty. The bladder was examined in a systematic fashion. Of note was a small amount of papillary tissue noted just inside the bladder neck at 6:00. There was some erythematous tissue in the posterior bladder consistent with his indwelling Everett catheter for several days. The ureteral orifices in their normal anatomic position and clear reflux of urine was noted. There was some mild to moderate trabeculation present but no cellules or diverticula. The cystoscope removed and our 26 Bulgarian resectoscope sheath with obturator passed into the urethra and into the bladder. The obturator removed and our resectoscope with the loop passed through the sheath. The tissue at the 6 o'clock position was resected and the base fulgurated. Some of the posterior erythematous tissue was fulgurated as well. The tissue samples were sent off as a specimen in the scope removed. A 20 [place]ian two-way Everett placed into the bladder without difficulty and 10 cc placed into the balloon. Patient transferred to the recovery in stable condition. We will plan on discontinuing his Everett catheter prior to discharge. Condition: stable Disposition: PACU Specimens:: Bladder specimen Complications:: None
== END 2020-03-01 10:40 | disposition home or self-care (01) ==
PROVIDERS: PCP Family Medicine; Visit Provider Urology
PROC: 0TJB8ZZ Inspection of Bladder, Via Natural or Artificial Opening Endoscopic (ICD-10-PCS; CPT 52000; principal; 2020-03-01 08:30)
DX: L53.8 Other specified erythematous conditions (principal); Z85.51 Personal history of malignant neoplasm of bladder; D89.89 Other specified disorders involving the immune mechanism, not elsewhere classified; I25.10 Atherosclerotic heart disease of native coronary artery without angina pectoris; E78.5 Hyperlipidemia, unspecified; I10 Essential (primary) hypertension; N28.9 Disorder of kidney and ureter, unspecified; M19.90 Unspecified osteoarthritis, unspecified site; Z87.891 Personal history of nicotine dependence; Z79.899 Other long term (current) drug therapy; Z87.442 Personal history of urinary calculi; Z83.3 Family history of diabetes mellitus
CPT/HCPCS: 52224; 88307; 88342; 96374

== ENCOUNTER → 2020-03-05 16:21 | Outpatient (CLI) | payer MEDICARE, SELFPAY | PROVIDERS: Visit Provider Urology | DX: R31.0 Gross hematuria (principal) | CPT/HCPCS: 87086 ==

== ENCOUNTER 2020-03-07 01:18 | Emergency (ER) | payer MEDICARE, SELFPAY ==
[2020-03-07 01:38] VITALS: BP 181/100; PULSE 88; RESP 16; TEMP 36.9; O2SAT 98; BMI 34.5
--- NOTE | 2020-03-07 01:59 | CT_ITS ---
PROCEDURE: CT PELVIS WO CON CLINICAL INDICATION: unable to void, recent Removal benign bladder tumors3 COMPARISON: No exams were available for comparison TECHNIQUE: Axial images obtained with sagittal and coronal reformats. All CT scans at the facility use one or more dose reduction, viz: automated exposure control, ma/kV adjustment per patient size (including targeted exams where dose is matched to indication, i.e. head), or iterative reconstruction technique. FINDINGS: Bony pelvis: Unremarkable. No acute fracture or dislocation. Hips:Unremarkable. No acute fracture or dislocation. There is no significant degenerate change. Sacrum/coccyx: Unremarkable Soft tissues:The urinary bladder is decompressed with a Everett catheter in place along with a small amount of air within the dome of the urinary bladder secondary to instrumentation. There is prominent thickening and bladder wall irregularity of anterior superior bladder wall. This likely represents postsurgical change and or residual bladder wall thickening from the patient's known bladder tumors or adjacent inflammatory reaction. The prostate is normal in size. There is a moderate amount stool in the lower sigmoid colon and rectum. Other findings: No other pertinent findings IMPRESSION: Decompressed urinary bladder prominent bladder wall irregularity anterior superior aspect Dictated by: Dr. Lion Langley MD 03/07/2020 10:03 Dr. Lion Langley MD in [place] 03/07/2020 10:03
[2020-03-07 02:00] LABS: Microscopic, Urine URINE MICROSCOPIC (MICROSCOPIC)
[2020-03-07 02:04] VITALS: BP 94/49; PULSE 60; RESP 18; O2SAT 96
[2020-03-07 02:06] LABS: Appearance,Urine CLOUDY (Clear); Bilirubin,Urine Negative (Negative); Blood, Urine 3+ (Negative); Color,Urine YELLOW (Yellow); Glucose,Urine (UA) Negative (Negative); Ketones,Urine Negative (Negative); Leukocyte Esterase,Urine 1+ (Negative); Nitrate,Urine Negative (Negative); PH,Urine 6.5 (5.0-8.5); Protein,Urine 1+ (Negative); Specific Gravity, Urine 1.015 (1.005-1.030); Urobilinogen,Urine 0.2 EU/dl (0.2)
[2020-03-07 02:09] LABS: RBC,Urine TNTC #/hpf (0-3); WBC,Urine 20-50 #/hpf (0-3)
[2020-03-07 02:11] LABS: Basophils % 0.3 % (0.1-2.0); Eosinophils # 0.5 K/mm3 (0.0-0.4); Hematocrit 37.5 % (42.0-52.0); Hemoglobin 12.5 g/dL (14.1-18.0); Lymphocytes # 2.2 K/mm3 (0.7-4.5); Lymphocytes % 18.2 % (10-50); Mean Corpuscular HGB Conc 33.3 g/dL (31.8-35.4); Mean Corpuscular Hemoglobin 29.1 pg (27.0-31.2); Mean Corpuscular Volume 87.3 fl (80-94); Mean Platelet Volume 8.7 fl (7.4-10.4); Monocytes # 0.9 K/mm3 (0.1-1.0); Monocytes % 7.4 % (1.7-9.3); Neutrophils # 8.4 K/mm3 (1.8-7.8); Neutrophils % 70.1 % (37.0-80.0); Platelet Count 225 K/mm3 (142-424); Red Blood Count 4.29 M/mm3 (4.60-6.20); Red Cell Distribution Width 14.2 % (11.5-17.5)
[2020-03-07 02:13] LABS: Alanine Aminotransferase 25 U/L (12-78); Albumin Level 4.3 g/dl (3.5-5.0); Albumin/Globulin Ratio 1.3 (1.1-1.8); Alkaline Phosphatase 115 U/L (38-126); Anion Gap 15.1 mEq/L (5-15); Aspartate Amino Transferase 41 U/L (17-59); Bilirubin,Total 0.6 mg/dl (0.2-1.3); Blood Urea Nitrogen 49 mg/dl (9-20); Calcium 9.9 mg/dl (8.4-10.2); Carbon Dioxide 29 mmol/L (22.0-30.0); Chloride 98 mmol/L (98-107); Creatinine Clearance Estimated 36 mL/min (50-200); Estimated Glomerular Filt Rate 26 ml/min (>60); GFR (African American) 32 ML/MIN (>60); Globulin 3.2 g/dL (1.3-3.2); Glucose 134 mg/dl (74-100); Potassium 4.1 mmoL/L (3.5-5.1); Sodium 138 mmol/L (136-145); Total Protein,Serum 7.5 g/dl (6.3-8.2)
[2020-03-07 02:14] LABS: Lactic Acid 0.8 mmol/L (0.7-2.1)
[2020-03-07 02:19] LABS: C-Reactive Protein 29.5 mg/L (0-4)
[2020-03-07 02:30] VITALS: BP 142/75; PULSE 73; RESP 16; O2SAT 98
[2020-03-07 02:34] LABS: Erythrocyte Sedimentation Rate 46 mm/hr (0-20)
--- NOTE | 2020-03-07 04:01 | HMH.EDUROGM ---
ED Disposition Clinical Impression: Acute retention of urine, Renal insufficiency Disposition: Home, Self-Care Condition on Discharge: Good Instructions: DI for Urinary Retention in Men Additional Instructions: hold lisinopril at this time and keep appt with dr butterfield and call pcp sunday Referrals: Saba Sosa MD [Primary Care Provider] - Catarino Butterfield MD [Staff Physician] - - Critical Care Critical Care Time: No Attestation: On 03/07/20, the high probability of a clinically significant, sudden or life threatening deterioration of the following system(s) required my full and direct attention, intervention and personal management. The time I documented below is in addition to time spent performing reported procedures but includes the following listed in this critical care notation. Medical Decision Making - Medical Records Medical records reviewed: Yes: I reviewed the patient's medical records. - Rudolph Inquiry Pt receiving controlled substance: No Vital Signs: 03/07/20 01:38 03/07/20 02:04 Temperature 98.4 F Temperature Source Oral Pulse Rate [Left] 88 60 Respiratory Rate 16 18 Blood Pressure [Right Arm] 181/100 H 94/49 L Blood Pressure Mean [Right Arm] 127 64 Blood Pressure Source [Right Arm] Automatic Cuff Blood Pressure Position [Right Arm] Sitting 02 Sat by Pulse Oximetry 98 96 Oxygen Delivery Method Room Air Room Air - Lab Data Lab results reviewed: Yes: I reviewed the patient's lab results. Lab Results 03/07/20 01:55: Urine Color Yellow, Urine Appearance Cloudy, Urine pH 6.5, Ur Specific [place] 1.015, Urine Protein 1+, Urine Glucose (UA) Negative, Urine Ketones Negative, Urine Blood 3+, Urine Nitrate Negative, Urine Bilirubin Negative, Urine Urobilinogen 0.2, Ur Leukocyte Esterase 1+ A, Urine RBC Tntc, Urine WBC 20-50 03/07/20 01:55: WBC 12.0 H, RBC 4.29 L, Hgb 12.5 L, Hct 37.5 L, MCV 87.3, MCH 29.1, MCHC 33.3, RDW 14.2, Plt Count 225, MPV 8.7, Neut % (Auto) 70.1, Lymph % (Auto) 18.2, [place] % (Auto) 7.4, Eos % (Auto) 4.0, Baso % (Auto) 0.3, Neut # (Auto) 8.4 H, Lymph # (Auto) 2.2, [place] # (Auto) 0.9, Eos # (Auto) 0.5 H, Baso # (Auto) 0.0, ESR 46 H 03/07/20 01:55: Sodium 138, Potassium 4.1, Chloride 98, Carbon Dioxide 29, Anion Gap 15.1 H, BUN 49 H, Creatinine 2.40 H, Estimated Creat Clear 36, Estimated GFR 26 L, Est GFR ( Amer) 32 L, Glucose 134 H, Calcium 9.9, Total Bilirubin 0.6, AST 41, ALT 25, Alkaline Phosphatase 115, C-Reactive Protein 29.5 H, Total Protein 7.5, Albumin 4.3, Globulin 3.2, Albumin/Globulin Ratio 1.3 03/07/20 01:55: Lactate 0.8 Result diagrams: 03/07/20 01:55 03/07/20 01:55 Orders (Tests/Meds): ED MEDICATIONS Generic Name Dose Route Start Last Admin Trade Name Freq PRN Reason Stop Dose Admin Sodium Chloride 1,000 mls @ 999 mls/hr 03/07/20 02:00 03/07/20 02:23 Sod Chlor 0.9% 1000ml Bag IV 03/07/20 03:00 999 mls/hr .[id number] JENNIFER Administration ORDERS Category Date Time Status CT pelvis wo con Stat Cat Scan 03/07/20 01:59 Taken Blood Culture Stat Micro 03/07/20 01:59 Received Urine Culture Stat Micro 03/07/20 01:55 Received - CT Data CT Scan: Abdomen, Pelvis Time Received: 04:[address] Reviewed: Yes: I have viewed the radiologist's interpretation Preliminary Findings: Abnormal Male Urogenital HPI - General Chief complaint: Urogenital-Male Stated complaint: Kidneys not working Time Seen by Provider: 03/07/20 02:30 Mode of Arrival: Ambulatory Source of Information: Patient, Spouse, Medical Record Limitations: No Limitations Description of Symptoms (Recalled from ER Triage Doc. by RN): pt states he has been unable to pee since 1800 and that he desperately needs to go. - History of Present Illness HPI Narrative: has had issues with urinary retention and hematuria - pt with no fever - MD Complaint: other (diff urinating ) Onset (ago): day(s) Duration: intermittent Severity: moderate Reports: urinary retention - Rela
[2020-03-07 04:18] VITALS: BP 138/63; PULSE 69; RESP 16; TEMP 36.6
== END 2020-03-07 04:21 | disposition home or self-care (01) ==
PROVIDERS: Emergency Provider Emergency Medicine; PCP Family Medicine
DX: R33.8 Other retention of urine (principal); N28.9 Disorder of kidney and ureter, unspecified; I10 Essential (primary) hypertension; I25.10 Atherosclerotic heart disease of native coronary artery without angina pectoris; E78.5 Hyperlipidemia, unspecified; Z87.442 Personal history of urinary calculi
CPT/HCPCS: 72192; 80053; 81001; 83605; 85025; 85651; 86140; 87040; 87086; 96365; 99284

== ENCOUNTER 2020-03-22 11:43 | Emergency (ER) | payer MEDICARE, SELFPAY ==
[2020-03-22 11:45] VITALS: BP 151/75; PULSE 66; RESP 16; TEMP 36.6; O2SAT 98; BMI 32.5
--- NOTE | 2020-03-22 12:06 | PC.NURSE ---
Pt was only seen to change out ag bag. Was not seen by ER MD
[2020-03-22 12:10] VITALS: BP 151/75; PULSE 66; RESP 16; TEMP 36.6; O2SAT 98
[2020-03-22 12:30] VITALS: BMI 324846.5
== END 2020-03-22 12:11 | disposition home or self-care (01) ==
PROVIDERS: Emergency Provider Emergency Medicine; PCP Family Medicine
DX: T83.9XXA Unspecified complication of genitourinary prosthetic device, implant and graft, initial encounter (principal)
CPT/HCPCS: 99282

== ENCOUNTER → 2020-04-05 10:00 | Outpatient (CLI) | payer MEDICARE, SELFPAY ==
[2020-04-05 10:09] LABS: Microscopic, Urine URINE MICROSCOPIC (MICROSCOPIC)
[2020-04-05 10:31] LABS: Appearance,Urine CLEAR (Clear); Bilirubin,Urine Negative (Negative); Blood, Urine 1+ (Negative); Color,Urine YELLOW (Yellow); Glucose,Urine (UA) Negative (Negative); Ketones,Urine Negative (Negative); Leukocyte Esterase,Urine 1+ (Negative); Nitrate,Urine POSITIVE (Negative); Protein,Urine Negative (Negative); Specific Gravity, Urine 1.015 (1.005-1.030); Urobilinogen,Urine 0.2 EU/dl (0.2)
[2020-04-05 10:32] LABS: Basophils # 0.1 K/mm3 (0-0.2); Basophils % 0.7 % (0.1-2.0); Eosinophils # 0.4 K/mm3 (0.0-0.4); Eosinophils % 5.7 % (0.1-12.0); Hematocrit 36.3 % (42.0-52.0); Hemoglobin 12.5 g/dL (14.1-18.0); Lymphocytes # 1.8 K/mm3 (0.7-4.5); Lymphocytes % 23.3 % (10-50); Mean Corpuscular HGB Conc 34.5 g/dL (31.8-35.4); Mean Corpuscular Hemoglobin 29.5 pg (27.0-31.2); Mean Corpuscular Volume 85.6 fl (80-94); Mean Platelet Volume 8.8 fl (7.4-10.4); Monocytes # 0.6 K/mm3 (0.1-1.0); Monocytes % 7.3 % (1.7-9.3); Neutrophils # 4.9 K/mm3 (1.8-7.8); Neutrophils % 63.1 % (37.0-80.0); Platelet Count 251 K/mm3 (142-424); Red Blood Count 4.24 M/mm3 (4.60-6.20); Red Cell Distribution Width 14.3 % (11.5-17.5); White Blood Count 7.8 K/mm3 (4.8-10.8)
[2020-04-05 10:58] LABS: Bacteria,Urine 1+ /lpf
[2020-04-05 11:09] LABS: Albumin Level 4.2 g/dl (3.5-5.0); Anion Gap 15.1 mEq/L (5-15); Blood Urea Nitrogen 26 mg/dl (9-20); Carbon Dioxide 31 mmol/L (22.0-30.0); Chloride 99 mmol/L (98-107); Estimated Glomerular Filt Rate 39 ml/min (>60); GFR (African American) 47 ML/MIN (>60); Glucose 104 mg/dl (74-100); Phosphorous 3.6 mg/dl (2.5-4.5); Potassium 4.1 mmoL/L (3.5-5.1); Sodium 141 mmol/L (136-145)
[2020-04-05 11:21] LABS: Intact Parathyroid Hormone 47.2 pg/mL (7.5-53.5)
== END ==
PROVIDERS: Visit Provider Internal Medicine Nephrology
DX: N18.4 Chronic kidney disease, stage 4 (severe) (principal); N25.0 Renal osteodystrophy; R82.90 Unspecified abnormal findings in urine
CPT/HCPCS: 36415; 80069; 81001; 82306; 83970; 85025; 87086; 87088; 87186

== ENCOUNTER → 2020-04-07 14:27 | Outpatient (CLI) | payer MEDICARE, SELFPAY ==
[2020-04-07 15:00] LABS: Basophils # 0.1 K/mm3 (0-0.2); Basophils % 0.6 % (0.1-2.0); Eosinophils # 0.4 K/mm3 (0.0-0.4); Eosinophils % 5.4 % (0.1-12.0); Hematocrit 37.3 % (42.0-52.0); Hemoglobin 12.5 g/dL (14.1-18.0); Lymphocytes # 1.8 K/mm3 (0.7-4.5); Lymphocytes % 24.7 % (10-50); Mean Corpuscular HGB Conc 33.6 g/dL (31.8-35.4); Mean Corpuscular Hemoglobin 28.8 pg (27.0-31.2); Mean Corpuscular Volume 85.8 fl (80-94); Mean Platelet Volume 8.2 fl (7.4-10.4); Monocytes # 0.6 K/mm3 (0.1-1.0); Neutrophils # 4.5 K/mm3 (1.8-7.8); Neutrophils % 61.2 % (37.0-80.0); Platelet Count 263 K/mm3 (142-424); Red Blood Count 4.35 M/mm3 (4.60-6.20); Red Cell Distribution Width 14.7 % (11.5-17.5); White Blood Count 7.3 K/mm3 (4.8-10.8)
[2020-04-07 15:23] LABS: Chloride 102 mmol/L (98-107); Sodium 140 mmol/L (136-145)
[2020-04-07 15:24] LABS: Potassium 4.1 mmoL/L (3.5-5.1)
[2020-04-07 15:26] LABS: Blood Urea Nitrogen 24 mg/dl (9-20); Estimated Glomerular Filt Rate 42 ml/min (>60); GFR (African American) 50 ML/MIN (>60)
[2020-04-07 15:27] LABS: Anion Gap 13.1 mEq/L (5-15); Calcium 9.8 mg/dl (8.4-10.2); Carbon Dioxide 29 mmol/L (22.0-30.0); Glucose 119 mg/dl (74-100)
[2020-04-07 18:11] LABS: Coronavirus 19 IgG Antibody Negative (Negative); Coronavirus 19 IgM Antibody Negative (Negative)
== END ==
PROVIDERS: Visit Provider Urology
DX: N41.9 Inflammatory disease of prostate, unspecified (principal); N40.1 Benign prostatic hyperplasia with lower urinary tract symptoms; J06.9 Acute upper respiratory infection, unspecified; Z01.818 Encounter for other preprocedural examination
CPT/HCPCS: 36415; 80048; 85025; 86328

== ENCOUNTER 2020-04-09 08:26 | Observation (INO) | payer MEDICARE, SELFPAY ==
[2020-04-07 12:03] VITALS: BMI 34.7
[2020-04-09] VITALS (25 sets, daily range): BP systolic 141–167; BP diastolic 56–80; PULSE 52–82; RESP 12–20; TEMP 36.5–43; O2SAT 91–98; BMI 33.3
--- NOTE | 2020-04-09 11:22 | P.PN_ITS ---
[facility] Anesthesia Checklist - Patient Identification Patient Identification: Arm Band, Verbal (Name & ) - Structural Data Admitted From: Home Planned Operative Procedure/s: turp Consent for Planned Operative Procedure(s) Verified: Yes Verified Documents: History and Physical - NPO Status Verified Time NPO: 00:00 - Chart Verification Results Verified: CBC, BMP - Additional verifications Patient : No Anesthesia Reactions: No Hx Blood Transfusions: No Blood Transfusion Reaction: No Cephalosporin Allergy: No Previous Colonoscopy: Yes - Cardiovascular Assessment Heart Sounds: S1 & S2 Pulse Strength: Baseline Pulse Rhythm: Regular Peripheral Edema: No - Airway Assessment C-Spine Mobility Assessed: Yes TMJ Mobility Assessed: Yes Dentition: Edentulous - Neurological Assessment Level of Consciousness: Awake, Alert, Appropriate Hx Seizures: No Numbness or tingling in extremities: No - Anesthesia Plan Anesthesia Risk discussed: Yes Anesthesia Plan: Verified ASA Class: III Anesthesia Type: General [facility] History I have reviewed the patient's past medical history: Yes Medical History: Reports:: Coronary Artery Disease, Hyperlipidemia, Hypertension, Kidney Stones, Renal Disease, Urinary Tract Infection Denies:: Cancer, Diabetes Mellitus Type 1, Diabetes Mellitus Type 2, Internal Pacemaker, MRSA, Seizures *Have you ever received a pneumonia vaccine?: Yes *Have you received a flu vaccine this season?: No Other Medical History: Reports: Arthritis. Denies: Blood Transfusion Reaction Anesthesia experience/problems:: none Other Surgeries: Yes: No Previous Surgery, Cardiac Catheterization, Colonoscopy. No: Pacemaker Amputation: No Fractures: No - *Social History Last grade of school completed: High school graduate Smoking Status: Never smoker Tobacco Type: cigarettes Alcohol Intake: never Substance Use Type: denies use *Occupational Status:: retired Housing: house Household Members: spouse *Travel in the last 8 weeks: None Family Hx:: Cancer, Hyperlipidemia, Hypertension
--- NOTE | 2020-04-09 11:23 | HMH.ANESI ---
[facility] Anesthesia Record Part I Intake, IV Amount: 600 Estimated blood loss (mL): 10 Urine output (mL): 100 Blood Products used (#): none Blood Pressure: 161/80 SaO2: 91 Pulse Rate: 60 Respiratory Rate: 20 Temperature: 98.1 F (ax) Patient is:: Drowsy, Nasal O2, Stable Stable to PACU at:: 11:20
--- NOTE | 2020-04-09 12:33 | P.PN_ITS ---
[facility] Anesthesia Record Part II Discharge Time: 11:50 Destination: Medical Surgical Department PACU nurse assessment reviewed?: Yes Patient Condition:: Good Anesthesia Complications:: None Swallowing reflex intact?: Yes Cyanosis?: No Blood Pressure: 147/75 Pulse Rate: 64 Temperature: 97.7 F Mental Status: Alert & Oriented Pain level:: 0 Nausea and/or vomitting:: None Intake, IV Amount: 25
--- NOTE | 2020-04-09 12:49 | PC.NURSE ---
med rec completed. Pt brought in Mycophenolate 250mg cap #3 to hospital. He has not taken a dose today. Called pharmacy and gave bottle to them for packaging. to bring all other meds to hospital.
--- NOTE | 2020-04-09 15:33 | HMH.OPNOTE ---
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 Operative findings:: Bladder shows significant trabeculation but the prostate is not as large as 1 would suspect. Operative note:: Patient taken to the operating room after informed consent was obtained. Placed on the operating table in the supine position and general anesthesia administered. Preoperative antibiotics and sequential compression devices placed. Was then placed into the dorsolithotomy position and prepped and draped in standard surgical fashion. A 22 [place] cystoscope passed into the urethra and into the bladder. The bladder was examined in a systematic fashion. There was some moderate trabeculation the bladder base. Ureteral orifices were well away from the bladder neck. There is no evidence of a median lobe. Prostatic urethra showed more anterior tissue and did not appear to be that large in the floor of the prostatic urethra. The cystoscope removed and our 28 [place] resectoscope sheath passed into the bladder. The bladder neck been resected in a circumferential fashion. The left lobe of the prostate was resected in a counterclockwise fashion and the right lobe of the prostate was resected in a clockwise fashion back to the verumontanum. There was some anterior tissue that was resected as well. Apical tissue was resected as stage III. All the prostatic chips were evacuated and hemostasis achieved. A 22 [place] three-way Everett catheter passed into the bladder without difficulty and 30 cc placed into the balloon. Continuous bladder irrigation was set up. Patient tolerated procedure well and discharged to recovery in stable condition. Condition: stable Disposition: PACU Specimens:: Prostate tissue Complications:: None
--- NOTE | 2020-04-09 15:53 | HMH.PHAINT ---
HOME MEDICATIONS RECONCILED FROM MED LIST FROM DR PLAZA'S OFFICE.
--- NOTE | 2020-04-09 15:55 | HMH.PHAVTE ---
[facility] Pharmacy VTE Monitoring - Patient Demographics Admission date: 04/09/20 Report Date: 04/09/20 Time: 15:55 Allergies/Adverse Reactions: Patient Allergies No Known Allergies Allergy (Verified 04/09/20 07:40) Height: 1.75 m Weight: 102.172 kg - VTE Risk VTE Score: 7 VTE Risk Level: Moderate Risk - Prophylaxis VTE Prophylaxis Ordered?: Yes Types of VTE Prophylaxis: IPCS Thigh High Location of Applied Device: Bilateral Lower Extremeties
--- NOTE | 2020-04-09 16:47 | INFXCTL.NOTE ---
received call from Dr. Schilling. He ordered to slow rate of CBI down to get UOP light pink. RN verbalized understanding. Rate slowed down. He ordered to discontinue CBI at 0700 tomorrow morning. He asked that i enter order on his behalf. Will enter communication order.
--- NOTE | 2020-04-09 19:12 | PC.NURSE ---
report given to shahida
[2020-04-10] VITALS: BP 143/60; PULSE 67; RESP 16; TEMP 36.9; O2SAT 95
--- NOTE | 2020-04-10 03:14 | PC.NURSE ---
Pt A&OX4 lungs CTA. pt on 2L NC O2 95% pt denies any SOA pain. CBI in place with ag bag draining clear to pink tinged urine. pt has tolerated well. pt has slept at intervals throughout shift
[2020-04-10 05:25] VITALS: BP 150/63; PULSE 71; RESP 16; TEMP 36.9; O2SAT 97; BMI 33.3
--- NOTE | 2020-04-10 07:00 | PC.NURSE ---
CBI TURNED OFF-3 WAY CATH PLUGGED PER MD ORDER.
[2020-04-10 08:00] VITALS: BP 141/88; PULSE 52; RESP 18; TEMP 36.8; O2SAT 98
[2020-04-10 08:37] LABS: Basophils % 0.2 % (0.1-2.0); Eosinophils % 0.2 % (0.1-12.0); Hematocrit 34.1 % (42.0-52.0); Hemoglobin 11.4 g/dL (14.1-18.0); Lymphocytes # 1.7 K/mm3 (0.7-4.5); Lymphocytes % 9.5 % (10-50); Mean Corpuscular HGB Conc 33.5 g/dL (31.8-35.4); Mean Corpuscular Hemoglobin 29.4 pg (27.0-31.2); Mean Corpuscular Volume 87.8 fl (80-94); Monocytes # 1.2 K/mm3 (0.1-1.0); Monocytes % 6.8 % (1.7-9.3); Neutrophils # 14.9 K/mm3 (1.8-7.8); Neutrophils % 83.3 % (37.0-80.0); Platelet Count 230 K/mm3 (142-424); Red Blood Count 3.88 M/mm3 (4.60-6.20); White Blood Count 17.8 K/mm3 (4.8-10.8)
[2020-04-10 08:40] LABS: MANUAL DIFFERENTIAL MANUAL DIFFERENTIAL (MANUAL DIFF)
[2020-04-10 08:42] LABS: Chloride 104 mmol/L (98-107); Potassium 4.3 mmoL/L (3.5-5.1); Sodium 136 mmol/L (136-145)
[2020-04-10 08:45] LABS: Blood Urea Nitrogen 35 mg/dl (9-20); Creatinine Clearance Estimated 43 mL/min (50-200); Estimated Glomerular Filt Rate 34 ml/min (>60); GFR (African American) 41 ML/MIN (>60)
[2020-04-10 08:46] LABS: Anion Gap 10.3 mEq/L (5-15); Calcium 8.9 mg/dl (8.4-10.2); Carbon Dioxide 26 mmol/L (22.0-30.0); Glucose 148 mg/dl (74-100)
--- NOTE | 2020-04-10 09:19 | HMH.ACPN ---
Internal Medicine - PN: Subj *Date: 04/10/20 *Time: :19 Interval history: Patient denies any abdominal pain, nausea vomiting. Vital signs are stable he is afebrile. Urine in the Everett catheter is clear off of CBI. He is tolerating a regular diet but is yet to get up and ambulate. Exam Vital signs and Labs for Last 24 Hours: Temp Pulse Resp BP Pulse Ox 98.3 F 52 L 18 141/88 H 98 04/10/20 08:00 04/10/20 08:00 04/10/20 08:00 04/10/20 08:00 04/10/20 08:00 Laboratory Results - last 24 hr 04/10/20 07:50: WBC 17.8 H D, RBC 3.88 L, Hgb 11.4 L, Hct 34.1 L, MCV 87.8, MCH 29.4, MCHC 33.5, RDW 16.0, Plt Count 230, MPV 8.0, Neut % (Auto) 83.3 H, Lymph % (Auto) 9.5 L, [place] % (Auto) 6.8, Eos % (Auto) 0.2, Baso % (Auto) 0.2, Neut # (Auto) 14.9 H, Lymph # (Auto) 1.7, [place] # (Auto) 1.2 H, Eos # (Auto) 0.0, Baso # (Auto) 0.0 04/10/20 07:50: Sodium 136, Potassium 4.3, Chloride 104, Carbon Dioxide 26, Anion Gap 10.3, BUN 35 H D, Creatinine 1.90 H, Estimated Creat Clear 43, Estimated GFR 34 L, Est GFR ( Amer) 41 L, Glucose 148 H, Calcium 8.9 I & O for Last 24 hours: Intake & Output 04/07/20 04/08/20 04/09/20 04/10/20 23:59 23:59 23:59 23:59 Intake Total 1660 / 1660 1563 / 1563 Output Total 4425 / 4425 1000 / 1000 Balance -2765 / -2765 563 / 563 Weight 106.594 kg 102.172 kg 102.115 kg Narrative: Obese white male in no apparent distress Pupils equal round reactive to light Abdomen soft nontender nondistended Alert and oriented x3 Normal respiratory effort Assessment and Plan (1) Urinary retention Current visit: No Status: Acute Category: Medical Code(s): R33.9 - Retention of urine, unspecified Postop day 1 status post TURP. Patient doing well and his urine is clear off the CBI. We will discharge him today with his Everett catheter. We discussed hydrating well and restricting any strenuous activity until he returns on Sunday for a voiding trial.
--- NOTE | 2020-04-10 09:30 | PC.NURSE ---
PATIENT AMBULATED IN ROOM. TOLERATED WELL WITH CANE. PATIENT F/C BAG CHANGED TO A LEG BAG DRAINAGE SYSTEM. STAT LOCK APPLIED. CL/LIGHT YELLOW URINE NOTED. NO BLEEDING NOTED.
--- NOTE | 2020-04-10 10:27 | HMH.PHAINT ---
DISCHARGE COUNSELING COMPLETED ON PATIENT. NEW PRESCRIPTION FOR CEFDINIR 300MG BID. THIS WAS SENT TO [facility] IN [place]. PATIENT IS TO CONTINUE ALL OTHER HOME MEDICATIONS WITH THE EXCEPTION OF TAMSULOSIN. PATIENT VERBALIZED UNDERSTANDING AND HAD NO QUESTIONS AT THIS TIME. -NIXON LOJA, NEHEMIASD
--- NOTE | 2020-04-10 10:52 | PC.NURSE ---
PATIENT TRANSPORTED VIA WHEEL CHAIR ACCOMPANIED BY STAFF TO FRONT ENTRANCE FOR DISCHARGE PATIENT LEFT WITH DAUGHTER. ALL BELONGINGS WERE WITH PATIENT INCLUDING MEDICATIONS, AND MEDICAL SUPPLIES NECESSARY FOR MADSEN CATHETER CARE. EDUCATION PROVIDED. AT TIME OF DISCHARGE URINE CL/LIGHT YELLOW.
[2020-04-10 11:50] LABS: Lymphocytes % 16 % (10-50); Monocytes % 5 % (2-9); Neutrophils % 79 % (42-76); Platelet Estimate Normal; RBC Morphology Normal; Total Cells Counted 100
== END 2020-04-10 10:52 | disposition home or self-care (01) ==
LOC: 2ND 08:26
PROVIDERS: Admitting Provider Urology; PCP Family Medicine; Visit Provider Urology
PROC: 0VT08ZZ Resection of Prostate, Via Natural or Artificial Opening Endoscopic (ICD-10-PCS; CPT 52601; principal; 2020-04-09 09:00)
DX: N40.1 Benign prostatic hyperplasia with lower urinary tract symptoms (principal); C61 Malignant neoplasm of prostate; R33.8 Other retention of urine; I10 Essential (primary) hypertension; I25.10 Atherosclerotic heart disease of native coronary artery without angina pectoris; I25.2 Old myocardial infarction; E78.5 Hyperlipidemia, unspecified; Z79.899 Other long term (current) drug therapy; Z87.891 Personal history of nicotine dependence
CPT/HCPCS: 52601; 80048; 85007; 85025; 88305; 96374; G0378; J2710

== ENCOUNTER → 2020-04-12 10:36 | Outpatient (POV) | payer MEDICARE, SELFPAY | PROVIDERS: Visit Provider Internal Medicine Nephrology | DX: Z00.00 Encounter for general adult medical examination without abnormal findings (principal) ==

== ENCOUNTER → 2020-05-13 15:14 | Outpatient (CLI) | payer MEDICARE, SELFPAY | PROVIDERS: Visit Provider Urology | DX: N39.0 Urinary tract infection, site not specified (principal) | CPT/HCPCS: 87086; 87088; 87186 ==

== ENCOUNTER → 2020-09-20 09:53 | Outpatient (CLI) | payer MEDICARE, SELFPAY ==
--- NOTE | 2020-09-20 09:58 | XR_ITS ---
PROCEDURE: XR DEXA AXIAL SKELETON CLINICAL HISTORY: RENAL OSTEODYSTROPHY COMPARISON: CT CT ABDOMEN PELVIS WO CON from 02/26/[address] PELVIS WO CON from 03/07/2020 FINDINGS: The right hip BMD is 0.958 with a T-score of 0.2. The left hip BMD is 0.942 with a T-score of 0.1. The lumbar spine BMD is 1.770 with a T-score of 6.2. IMPRESSION: This patient is considered normal according to the World Health Organization criteria. Fracture risk is low. Based on these results a follow-up exam is recommended in 2 year. Dictated by: Xiang Zayas MD 09/20/2020 20:25 Xiang Zayas MD in [place] 09/21/2020 08:41
== END ==
PROVIDERS: PCP Family Medicine; Visit Provider Internal Medicine Nephrology
DX: N25.0 Renal osteodystrophy (principal); N28.9 Disorder of kidney and ureter, unspecified
CPT/HCPCS: 77080

== ENCOUNTER → 2020-09-29 11:21 | Outpatient (CLI) | payer MEDICARE, SELFPAY ==
[2020-09-29 12:31] LABS: Albumin Level 4.3 g/dl (3.5-5.0); Anion Gap 14.7 mEq/L (5-15); Blood Urea Nitrogen 35 mg/dl (9-20); Calcium 9.9 mg/dl (8.4-10.2); Carbon Dioxide 26 mmol/L (22.0-30.0); Chloride 108 mmol/L (98-107); Estimated Glomerular Filt Rate 32 ml/min (>60); GFR (African American) 39 ML/MIN (>60); Glucose 97 mg/dl (74-100); Phosphorous 3.8 mg/dl (2.5-4.5); Potassium 4.7 mmoL/L (3.5-5.1); Sodium 144 mmol/L (136-145)
== END ==
PROVIDERS: Visit Provider Internal Medicine Nephrology
DX: N25.0 Renal osteodystrophy (principal)
CPT/HCPCS: 36415; 80069

== ENCOUNTER → 2020-11-26 10:44 | Outpatient (CLI) | payer MEDICARE, SELFPAY | PROVIDERS: Visit Provider Urology | DX: Z20.822 Contact with and (suspected) exposure to COVID-19 (principal) | CPT/HCPCS: U0003 ==

== ENCOUNTER 2020-11-29 08:09 | Day surgery (SDC) | payer MEDICARE, SELFPAY ==
[2020-11-29 08:27] VITALS: BP 128/47; PULSE 73; RESP 20; TEMP 36.2; O2SAT 96; BMI 32.5
[2020-11-29 09:32] VITALS: BP 141/77; PULSE 59; RESP 18; TEMP 36.4; O2SAT 98
--- NOTE | 2020-11-29 12:40 | HMH.OPNOTE ---
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 Operative findings:: Cystoscopy revealed a bladder neck contracture which was too tight to allow the flexible scope to enter the bladder. Operative note:: Patient taken to the cystoscopy suite after informed consent was obtained. On the stretcher he was prepped and draped in the standard surgical fashion and 2% lidocaine placed into the urethra and the urethra clamped for 5 minutes. The flexible cystoscope then placed at the urethral meatus after the clamp was removed and the scope passed to the prostatic urethra which showed a nice TUR defect but there is a high bladder neck contracture present which is not large enough to allow the scope to enter the bladder. Scope removed the patient tolerated the procedure well. We discussed the findings and we will get him set up for incision of the bladder neck contracture under anesthesia. Condition: stable Disposition: same day Specimens:: None Complications:: None
== END 2020-11-29 09:50 | disposition home or self-care (01) ==
PROVIDERS: PCP Family Medicine; Visit Provider Urology
DX: N32.0 Bladder-neck obstruction; Z90.79 Acquired absence of other genital organ(s); Z85.46 Personal history of malignant neoplasm of prostate; I25.10 Atherosclerotic heart disease of native coronary artery without angina pectoris; E78.5 Hyperlipidemia, unspecified; I10 Essential (primary) hypertension; I25.2 Old myocardial infarction; N28.9 Disorder of kidney and ureter, unspecified; Z79.899 Other long term (current) drug therapy; M19.90 Unspecified osteoarthritis, unspecified site; Z87.891 Personal history of nicotine dependence
CPT/HCPCS: 52000

== ENCOUNTER → 2020-11-30 13:24 | Outpatient (POV) | payer MEDICARE, SELFPAY | PROVIDERS: Visit Provider Dermatology | DX: Z00.00 Encounter for general adult medical examination without abnormal findings (principal) ==

== ENCOUNTER 2020-12-09 16:29 | Emergency (ER) | payer MEDICARE, SELFPAY ==
[2020-12-09 16:30] VITALS: BP 152/61; PULSE 66; RESP 17; O2SAT 98; BMI 29.5
--- NOTE | 2020-12-09 16:36 | ECG_ITS ---
APPROVED REPORT Exam: Resting ECG HR:73 bpm ECG Measurements Heart Rate 73 AXES WA 120 P 50 QRSd 86 QRS -8 QT 390 T 28 QTc 429 Conclusion Sinus rhythm with frequent premature ventricular complexes in a pattern of bigeminy Inferior infarct, age undetermined Abnormal ECG Electronically signed by : Rohan Dior, 12/10/2020 09:06:51
--- NOTE | 2020-12-09 16:59 | HMH.EDGENADL ---
ED Disposition Clinical Impression: Bigdaniinmarley Disposition: Home, Self-Care Condition on Discharge: Good Referrals: Duncan Ron MD [Staff Physician] - 12/10/20 10:00 am - Critical Care Critical Care Time: No Attestation: On 12/09/20, the high probability of a clinically significant, sudden or life threatening deterioration of the following system(s) required my full and direct attention, intervention and personal management. The time I documented below is in addition to time spent performing reported procedures but includes the following listed in this critical care notation. Medical Decision Making - Medical Records Medical records reviewed: Yes: I reviewed the patient's medical records. - Rudolph Inquiry Pt receiving controlled substance: No Vital Signs: 12/09/20 16:30 12/09/20 17:31 12/09/20 18:01 Pulse Rate 68 43 L Pulse Rate [Left Radial] 66 Respiratory Rate 17 20 21 Blood Pressure 112/53 L 103/50 L Blood Pressure [Right Arm] 152/61 H Blood Pressure Mean [Right Arm] 91 Blood Pressure Source [Right Arm] Automatic Cuff Blood Pressure Position [Right Arm] Sitting 02 Sat by Pulse Oximetry 98 97 97 Oxygen Delivery Method Room Air - Lab Data Lab results reviewed: Yes: I reviewed the patient's lab results. Lab Results 12/09/20 17:41: WBC 6.8, RBC 4.12 L, Hgb 10.9 L, Hct 34.0 L, MCV 82.4, MCH 26.4 L, MCHC 32.0, RDW 14.9, Plt Count 243, MPV 8.1, Neut % (Auto) 48.7, Lymph % (Auto) 38.4, [place] % (Auto) 8.5, Eos % (Auto) 3.9, Baso % (Auto) 0.5, Neut # (Auto) 3.3, Lymph # (Auto) 2.6, [place] # (Auto) 0.6, Eos # (Auto) 0.3, Baso # (Auto) 0.0 12/09/20 17:41: Sodium 141, Potassium 4.0, Chloride 104, Carbon Dioxide 27, Anion Gap 14.0, BUN 51 H, Creatinine 2.70 H, Estimated Creat Clear 27, Estimated GFR 23 L, Est GFR ( Amer) 28 L, Glucose 124 H, Calcium 9.6, Phosphorus 3.9, Magnesium 2.3, Troponin I < 0.01 Result diagrams: 12/09/20 17:41 12/09/20 17:41 Orders (Tests/Meds): ORDERS Category Date Time Status Troponin I Q3H Lab 12/09/20 20:15 Ordered Troponin I Q3H Lab 12/09/20 23:15 Ordered - CT Data CT Scan: Abdomen, Pelvis Time Received: 17:[address] Reviewed: Yes: I have reviewed the patient's CT results Findings Narrative: FINDINGS: Liver: Normal. No mass. Gallbladder and bile ducts: Normal. No calcified stones. No ductal dilation. Pancreas: Normal. No ductal dilation. Spleen: Normal. No splenomegaly. Adrenal glands: Normal. No mass. Kidneys and ureters: Normal. No hydronephrosis. Stomach and bowel: Unremarkable. No obstruction. No mucosal thickening. Appendix: No evidence of appendicitis. Intraperitoneal space: Unremarkable. No free air. No significant fluid collection. Vasculature: Unremarkable. No abdominal aortic aneurysm. Lymph nodes: Unremarkable. No enlarged lymph nodes. Urinary bladder: Unremarkable as visualized. Reproductive: Unremarkable as visualized. Bones/joints: Bilateral L5 spondylolysis and grade 1 L5-S1 spondylolisthesis. Soft tissues: Unremarkable. IMPRESSION: Bilateral L5 spondylolysis and grade 1 L5-S1 spondylolisthesis. - ECG Data Tracing #1 EKG at 1636 shows a sinus rhythm with a rate of 73. Pattern is bigeminy, sinus rhythm. No STEMI. Normal LA, QRS and QTc. EKG interpreted by me. Medical Decision Narrative: No bradycardia here. He is in bigeminy, possible that home health monitor was not picking up his beats correctly. He is completely asymptomatic and has been told before that he has a early heartbeat . I cannot find any previous EKGs for comparison, but he has no significant metabolic derangement, negative troponin and EKG with no acute ischemia. No chest pain or shortness of breath. I discussed this case with Dr. Ron who advised evaluation outpatient in clinic tomorrow at 10 AM. Patient expresses understanding of the plan and is discharged home. General Adult HPI - General Chief complaint: R
[2020-12-09 17:31] VITALS: BP 112/53; PULSE 68; RESP 20; O2SAT 97
[2020-12-09 17:51] LABS: Basophils % 0.5 % (0.1-2.0); Eosinophils # 0.3 K/mm3 (0.0-0.4); Eosinophils % 3.9 % (0.1-12.0); Hemoglobin 10.9 g/dL (14.1-18.0); Lymphocytes # 2.6 K/mm3 (0.7-4.5); Lymphocytes % 38.4 % (10-50); Mean Corpuscular Hemoglobin 26.4 pg (27.0-31.2); Mean Corpuscular Volume 82.4 fl (80-94); Mean Platelet Volume 8.1 fl (7.4-10.4); Monocytes # 0.6 K/mm3 (0.1-1.0); Monocytes % 8.5 % (1.7-9.3); Neutrophils # 3.3 K/mm3 (1.8-7.8); Neutrophils % 48.7 % (37.0-80.0); Platelet Count 243 K/mm3 (142-424); Red Blood Count 4.12 M/mm3 (4.60-6.20); Red Cell Distribution Width 14.9 % (11.5-17.5); White Blood Count 6.8 K/mm3 (4.8-10.8)
[2020-12-09 17:58] LABS: Chloride 104 mmol/L (98-107); Sodium 141 mmol/L (136-145)
[2020-12-09 18:01] VITALS: BP 103/50; PULSE 43; RESP 21; O2SAT 97
[2020-12-09 18:01] LABS: Blood Urea Nitrogen 51 mg/dl (9-20); Calcium 9.6 mg/dl (8.4-10.2); Carbon Dioxide 27 mmol/L (22.0-30.0); Creatinine Clearance Estimated 27 mL/min (50-200); Estimated Glomerular Filt Rate 23 ml/min (>60); GFR (African American) 28 ML/MIN (>60); Glucose 124 mg/dl (74-100); Phosphorous 3.9 mg/dl (2.5-4.5)
[2020-12-09 18:02] LABS: Magnesium 2.3 mg/dl (1.6-2.3)
--- NOTE | 2020-12-09 18:21 | PC.NURSE ---
Dr Ron paged
[2020-12-09 18:22] LABS: Troponin I < 0.01 ng/ml (0.00-0.034)
--- NOTE | 2020-12-09 18:43 | PC.NURSE ---
dr patel paged again
[2020-12-09 19:09] VITALS: BP 149/69; PULSE 51; RESP 16; TEMP 36.2; O2SAT 97
== END 2020-12-09 19:12 | disposition home or self-care (01) ==
PROVIDERS: Emergency Provider Emergency Medicine; PCP Family Medicine
DX: I49.8 Other specified cardiac arrhythmias (principal); I10 Essential (primary) hypertension; E78.5 Hyperlipidemia, unspecified; Z79.899 Other long term (current) drug therapy
CPT/HCPCS: 80048; 83735; 84100; 84484; 85025; 93005; 99282

== ENCOUNTER → 2020-12-13 06:47 | Outpatient (CLI) | payer MEDICARE, SELFPAY ==
--- NOTE | 2020-12-13 06:48 | CA_ITS ---
APPROVED REPORT Exam: Exercise Treadmill Technologist: April Traore, Ht: 5 ft 9 in Wt: 216 lbs BSA: 2.13 m2 HR: 54 bpm BP: 135/52 mmHg Medical History Medications: Carvedilol,,,,, AtorvaASTATIN,,,,, AZelastine,,,,, Potassium,,,,, AmlodiNPINE,,,,, MyCophendate,,,,, Lisinopri/HCTZ,,,,, Furosemide,,,,, Ferrous GLUCONATE,,,,, MoFETIL,,,,, Stress Test Details Test: LEXISCAN HR Resting HR: 57 bpm Max Heart Rate (APMHR): 138 bpm Max HR Achieved: 72 bpm Target HR (85% APMHR): 117 bpm % of APMHR: 52 Recovery HR: 67 bpm BP Resting BP: 135/52 mmHg Max BP: 135/52 mmHg Recovery BP: 128.0/46.0 mmHg ECG Resting ECG: Sinus Rhythm with PAC and PVC Clinical Exercise duration: 04:07 min Highest Stage Achieved: Stress ECG Conclusion Symptoms: Pt denied C/O's, No SOB, No CP during peak infusion. Arrhythmias/Ectopy: Occ PVC and occ PAC. ST-T Changes: Less than 1.5mm ST Depression. Conclusion: Images to follow. Electronically signed by : Felton Leiva, 12/14/2020 06:10:03
--- NOTE | 2020-12-13 06:48 | CA_ITS ---
APPROVED REPORT EXAM: Comprehensive 2D, Doppler, and color-flow Echocardiogram Director Medical Surgical: Laura Gonzalez CRT Ht: 5 ft 9 in Wt: 216lbs BSA: 2.13 BP: 106/45 mmHg Indications: Congestive Heart Failure, Shortness of Breath, Diabetes, Peripheral Edema, Hyperlipidemia, Hypertension/HDD, CAPO, prostate ca 2D Dimensions LVOT 1.88 cm (M/F) 1.5-2.5 LA Volume 50.10 mL LA Volume Index 23.50 mL/m2 (M/F) 16-34 M-Mode Dimensions RVDd 2.55 cm (0.9-2.6) LA Diam 3.81 cm (1.9-4.0) LVDd 6.35 cm (3.5-5.7) Ao Diam 4.98 cm (2.0-3.7) LVDs 3.00 cm (3.5-5.7) IVSd 1.30 cm (0.6-1.1) PWd 0.63 cm (0.6-1.1) EF (Teich) 82.90% FS 52.80% EDV (Teich) 204.80 mL TAPSE 2.68 (<1.7) ESV (Teich) 35.00 mL LV Diastology E Decel Time 217.00 (160-240 msec) E/A Ratio 1.53 MED E' 5.90 (< 7 cm/sec) MED A' 7.40 cm/s E'/MED E' Ratio 19.14 (>14) LAT E' 7.30 (<10 cm/sec) LAT A' 7.90 cm/s E/LAT E' Ratio 15.47 (>14) Aortic Valve LVOT Max 166.00 (70-110 cm/s) LVOT VTI 43.33 cm AoV Peak Guzman. 189.00 (50-130 cm/s) AO Peak GR. 14.30 mmHg AO Mean GR. 7.30 (<5 mmHg) AO VTI 40.83 (18-25 cm) ECHO (VTI) 2.95 (2.5-4.5 cm2) Mitral Valve MV E Max Guzman. 113.00 (40-130 cm/s) MV A Velocity 74.00 (40-130 cm/s) E/A Ratio 1.53 MV Decel. Time 217.00 (160-240 ms) MV PHT 63.00 ms Pulmonary Valve PV Peak Velocity 74.00 (50-150 cm/s) Tricuspid Valve TR P. Velocity 271.00 cm/s RAP Estimate 10.00 mmHg RVSP 39.30 mmHg Left Ventricle Left atrium is mildly enlarged, left ventricle is normal size, mild concentric left ventricular hypertrophy, visually estimated ejection fraction approximately 50% with no regional wall motion abnormality, endocardial surfaces are poorly visualized, diastolic parameters are inconclusive. Right Ventricle Right atrium and right ventricle are normal size and contractility. Aortic Valve Aortic valve is thickened and calcified without aortic stenosis or aortic insufficiency. Mitral Valve Mitral valve leaflets are minimally thickened, there is mild mitral regurgitation. Tricuspid Valve Tricuspid valve is grossly normal, there is trace tricuspid regurgitation, tricuspid regurgitation jet velocity is inadequate for calculation of the right ventricular systolic pressure. Pulmonic Valve Pulmonic valve is poorly visualized. Great Vessels Aortic root is normal size. Pericardium No significant pericardial effusion noted. Conclusion 1. Mild biatrial enlargement, normal left ventricular size, mild concentric left ventricular hypertrophy, visually estimated ejection fraction 50% with no regional wall motion abnormality, endocardial surfaces are poorly visualized, diastolic parameters are inconclusive. 2. Mild mitral and trace tricuspid regurgitation. 3. No significant pericardial effusion noted. Electronically signed by : Felton Leiva, 12/14/2020 05:16:29
--- NOTE | 2020-12-13 06:48 | NM_ITS ---
APPROVED REPORT Exam: Nuclear Stress Test Indication: SOB, CAD, Hx of SD, HTN, High cholesterol, Former tobacco use, Family history Patient Location: Outpatient Stress Tech: April Traore MA Tech:Laila Jain, ARRT, RT (R)(N) Ht: 5 ft 9 in Wt: 222 lbs HR: 54 bpm BP: 135/52 mmHg BSA: 2.16 m2 BMI: 32.7 History: SOB, CAD, Hx of SD, HTN, High cholesterol, Former tobacco use, Family history Procedure: Patient received a 0.4 mg of intravenous Lexiscan, resting heart rate 54 bpm, resting blood pressure 135/52 mmHg, with Lexiscan maximum heart rate achived was 69 bpm which is Less than 85 % of the maximum predicted heart rate and blood pressure was 103/42 mmHg. With Lexiscan, patient denied any complaint of chest pain. Electrocardiogram Resting electrocardiogram shows sinus rhythm, with Lexiscan there is less than 1.[address] segment depression noted from the baseline EKG. The EKG portion of the Lexiscan is nondiagnostic. Cardiac Stress and Resting SPECT Images: Cardiac Stress and Resting SPECT images were obtained using technetium 99m Myoview 30.4 mCi stress and 10.99 mCi at rest. Gated SPECT for analysis of segmental wall motion and calculation of the ejection fraction also done, prone images were not obtained. Cardiac stress and resting SPECT images show a fixed defect involving the inferior, inferior apical wall consistent with area of myocardial scarring without significant riri-infarct ischemia, computer derived ejection fraction is 47% with moderate inferior and inferior apical wall hypokinesis, right ventricle is mildly enlarged with normal contractility. Conclusion: 1. The EKG portion of the Lexiscan is nondiagnostic. 2. Scintigraphic evidence of myocardial scarring involving the inferior and inferior apical wall without significant riri-infarct ischemia, computer derived ejection fraction 47% with segmental wall motion abnormality described above, right ventricle is mildly enlarged with normal contractility. 3. Abnormal Lexiscan Myoview study. Electronically signed by : Felton Leiva, 12/14/2020 06:22:32
--- NOTE | 2020-12-13 08:45 | HMH.ITSHM ---
Current Home Medications as stated by this patient Chris Liao or personnel representative. []POTASSIUM CELLCEPT LISINOPRIL FUROSEMIDE CARVEDILOL AZELASTINE ATORVASTATIN AMLODIPINE
== END ==
PROVIDERS: PCP Family Medicine; Visit Provider Internal Medicine Cardiovascular Disease
DX: E78.5 Hyperlipidemia, unspecified (principal); G47.33 Obstructive sleep apnea (adult) (pediatric); I10 Essential (primary) hypertension; I25.10 Atherosclerotic heart disease of native coronary artery without angina pectoris; N28.9 Disorder of kidney and ureter, unspecified; R06.00 Dyspnea, unspecified; Z85.46 Personal history of malignant neoplasm of prostate; R94.31 Abnormal electrocardiogram [ECG] [EKG]
CPT/HCPCS: 78452; 93017; 93306; A9502; J2785

== ENCOUNTER → 2020-12-15 12:18 | Outpatient (CLI) | payer MEDICARE, SELFPAY ==
[2020-12-15 12:52] LABS: Basophils % 0.6 % (0.1-2.0); Eosinophils # 0.3 K/mm3 (0.0-0.4); Eosinophils % 4.8 % (0.1-12.0); Hematocrit 34.7 % (42.0-52.0); Hemoglobin 11.1 g/dL (14.1-18.0); Lymphocytes # 2.2 K/mm3 (0.7-4.5); Lymphocytes % 34.4 % (10-50); Mean Corpuscular HGB Conc 31.9 g/dL (31.8-35.4); Mean Corpuscular Hemoglobin 26.5 pg (27.0-31.2); Mean Corpuscular Volume 83.1 fl (80-94); Mean Platelet Volume 7.8 fl (7.4-10.4); Monocytes # 0.6 K/mm3 (0.1-1.0); Monocytes % 9.1 % (1.7-9.3); Neutrophils # 3.2 K/mm3 (1.8-7.8); Neutrophils % 51.1 % (37.0-80.0); Platelet Count 223 K/mm3 (142-424); Red Blood Count 4.18 M/mm3 (4.60-6.20); Red Cell Distribution Width 15.1 % (11.5-17.5); White Blood Count 6.3 K/mm3 (4.8-10.8)
[2020-12-15 13:06] LABS: Chloride 104 mmol/L (98-107); Potassium 4.7 mmoL/L (3.5-5.1); Sodium 141 mmol/L (136-145)
[2020-12-15 13:09] LABS: Blood Urea Nitrogen 48 mg/dl (9-20); Estimated Glomerular Filt Rate 25 ml/min (>60); GFR (African American) 30 ML/MIN (>60)
[2020-12-15 13:10] LABS: Anion Gap 14.7 mEq/L (5-15); Calcium 9.4 mg/dl (8.4-10.2); Carbon Dioxide 27 mmol/L (22.0-30.0); Glucose 90 mg/dl (74-100)
== END ==
PROVIDERS: PCP Family Medicine; Visit Provider Nurse Practitioner Family
DX: E78.2 Mixed hyperlipidemia (principal); G47.33 Obstructive sleep apnea (adult) (pediatric); I10 Essential (primary) hypertension; I25.10 Atherosclerotic heart disease of native coronary artery without angina pectoris; N28.9 Disorder of kidney and ureter, unspecified; Z01.818 Encounter for other preprocedural examination; Z20.822 Contact with and (suspected) exposure to COVID-19
CPT/HCPCS: 36415; 80048; 85025; 93225; 93226; U0003

== ENCOUNTER 2020-12-16 11:23 | Day surgery (SDC) | payer MEDICARE, SELFPAY ==
[2020-12-16] VITALS (12 sets, daily range): BP systolic 107–164; BP diastolic 48–88; PULSE 58–79; RESP 13–18; TEMP 36.9; O2SAT 91–98; BMI 31.8
--- NOTE | 2020-12-16 07:11 | IR_ITS ---
APPROVED REPORT Patient Location: Outpatient PROCEDURES Left heart catheterization Left ventriculogram Selective coronary drug INDICATION Preoperative evaluation, High risk abnormal Myoview Informed consent was obtained prior to the procedure. COMPLICATIONS None Estimated Blood Loss: Less than 10 mls TECHNIQUE One percent lidocaine used to anesthetize the right anterior aspect of the wrist. The right radial artery was accessed via the Seldinger technique. A 6 [place] sheath was placed in the right radial artery. 2.5 mg of verapamil, 800 mcg of nitroglycerin, 1mg Lidocaine and 5000 U Heparin were given through the arterial sheath. The trap catheter and a 6 [place] JL 3 were also used to perform left heart catheterization, left ventriculogram and selective coronary angiogram. At the end of the procedure the sheath was removed good hemostasis was achieved using Traclet band, patient was transferred to the postop holding area in stable condition. ANGIOGRAPHIC RESULTS The left main artery Normal The left anterior descending artery Has proximal and mid vessel mild luminal irregularities The circumflex artery Is a dominant vessel and has a proximal 40% stenosis The right coronary artery Is small nondominant and has proximal 8090% stenosis however there is ventricle does not supply any the left ventricle The JACOB ventriculogram reveals Not performed The left ventricular end-diastolic pressure Not measured IMPRESSION Mild to moderate nonflow limiting coronary disease and enlarged proximal dominant circumflex artery Vestigial right coronary artery with severe disease which is clinically insignificant PLAN 1. Patient is alone acceptable risk to proceed with planned prostate surgery 2. Standard therapy for coronary artery disease Electronically signed by : Duncan Ron, 12/16/2020 13:02:38
== END 2020-12-16 15:28 | disposition home or self-care (01) ==
PROVIDERS: PCP Family Medicine; Visit Provider Internal Medicine
DX: E78.2 Mixed hyperlipidemia (principal); G47.33 Obstructive sleep apnea (adult) (pediatric); I10 Essential (primary) hypertension; I25.10 Atherosclerotic heart disease of native coronary artery without angina pectoris; N28.9 Disorder of kidney and ureter, unspecified
CPT/HCPCS: 93458; 99152; C1725; C1760; C1769; J1644; Q9967

== ENCOUNTER → 2021-01-28 10:25 | Outpatient (CLI) | payer MEDICARE, SELFPAY ==
[2021-01-28 10:27] LABS: MANUAL DIFFERENTIAL MANUAL DIFFERENTIAL (MANUAL DIFF)
[2021-01-28 11:34] LABS: Basophils # 0.1 K/mm3 (0-0.2); Basophils % 0.9 % (0.1-2.0); Eosinophils # 0.3 K/mm3 (0.0-0.4); Eosinophils % 5.9 % (0.1-12.0); Hematocrit 34.1 % (42.0-52.0); Lymphocytes # 2.1 K/mm3 (0.7-4.5); Lymphocytes % 37.6 % (10-50); Mean Corpuscular HGB Conc 32.4 g/dL (31.8-35.4); Mean Corpuscular Hemoglobin 27.1 pg (27.0-31.2); Mean Corpuscular Volume 83.7 fl (80-94); Mean Platelet Volume 8.5 fl (7.4-10.4); Monocytes # 0.5 K/mm3 (0.1-1.0); Monocytes % 8.1 % (1.7-9.3); Neutrophils # 2.7 K/mm3 (1.8-7.8); Neutrophils % 47.5 % (37.0-80.0); Platelet Count 220 K/mm3 (142-424); Red Blood Count 4.08 M/mm3 (4.60-6.20); Red Cell Distribution Width 15.8 % (11.5-17.5); White Blood Count 5.6 K/mm3 (4.8-10.8)
[2021-01-28 11:59] LABS: Eosinophils % 4 % (0-3); Lymphocytes % 35 % (10-50); Monocytes % 4 % (2-9); Neutrophils % 57 % (42-76); Platelet Estimate Normal; RBC Morphology Normal; Total Cells Counted 100
[2021-01-28 12:32] LABS: Anion Gap 14.6 mEq/L (5-15); Blood Urea Nitrogen 30 mg/dl (9-20); Calcium 9.4 mg/dl (8.4-10.2); Carbon Dioxide 25 mmol/L (22.0-30.0); Chloride 108 mmol/L (98-107); Estimated Glomerular Filt Rate 30 ml/min (>60); GFR (African American) 37 ML/MIN (>60); Glucose 72 mg/dl (74-100); Potassium 4.6 mmoL/L (3.5-5.1); Sodium 143 mmol/L (136-145)
== END ==
PROVIDERS: Visit Provider Urology
DX: R39.15 Urgency of urination (principal); N32.0 Bladder-neck obstruction; Z01.812 Encounter for preprocedural laboratory examination; Z11.52 Encounter for screening for COVID-19
CPT/HCPCS: 36415; 80048; 85007; 85014; 85018; 85048; 85049; U0003

== ENCOUNTER 2021-01-31 08:54 | Day surgery (SDC) | payer MEDICARE, SELFPAY ==
[2020-12-09 12:33] VITALS: BMI 32.8
[2021-01-31] VITALS (10 sets, daily range): BP systolic 107–139; BP diastolic 51–76; PULSE 58–61; RESP 16–20; TEMP 36.3–43; O2SAT 93–100
--- NOTE | 2021-01-31 10:57 | P.PN_ITS ---
[facility] Anesthesia Checklist - Patient Identification Patient Identification: Arm Band - Structural Data Admitted From: Home Planned Operative Procedure/s: Incision of Vesical Neck Contracture Consent for Planned Operative Procedure(s) Verified: Yes Verified Documents: Surgical Consent, History and Physical, Cardiac Clearance - NPO Status Verified Time NPO: 00:00 - Additional verifications Anesthesia Reactions: No Hx Blood Transfusions: No Blood Transfusion Reaction: No - Airway Assessment C-Spine Mobility Assessed: Yes TMJ Mobility Assessed: Yes Dentition: Edentulous - Neurological Assessment Level of Consciousness: Awake, Alert - Anesthesia Plan Anesthesia Risk discussed: Yes Anesthesia Plan: Verified ASA Class: III Anesthesia Type: General [facility] History I have reviewed the patient's past medical history: Yes Medical History: Reports:: BPH, Coronary Artery Disease, Hyperlipidemia, Hypertension, Kidney Stones, Myocardial Infarction, Renal Disease, Urinary Tract Infection Denies:: Cancer, Diabetes Mellitus Type 1, Diabetes Mellitus Type 2, Internal Pacemaker, MRSA, Seizures *Have you ever received a pneumonia vaccine?: Yes *Have you received a flu vaccine this season?: Yes Other Medical History: Reports: Arthritis. Denies: Blood Transfusion Reaction Anesthesia experience/problems:: nac Other Surgeries: Yes: Cancer Surgery, Cardiac Catheterization, Colonoscopy. No: Pacemaker Amputation: No Fractures: No - *Social History Last grade of school completed: High school graduate Smoking Status: Former smoker Tobacco Type: cigarettes Alcohol Intake: never Alcohol Intake Frequency:: holidays/special occasions only Substance Use Type: denies use *Occupational Status:: retired Housing: house Household Members: spouse *Travel in the last 8 weeks: None Family Hx:: Coronary Artery Disease, Heart Attack
--- NOTE | 2021-01-31 12:12 | P.PN_ITS ---
[facility] Anesthesia Record Part I Intake, IV Amount: 1,000 Estimated blood loss (mL): 0 Urine output (mL): 0 Blood Pressure: 107/53 SaO2: 93 Pulse Rate: 58 Respiratory Rate: 16 Temperature: 98.9 F Patient is:: Drowsy, Stable Stable to PACU at:: 12:10
--- NOTE | 2021-01-31 13:12 | P.OP_ITS ---
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 Recent cystoscopy has shown a bladder neck contracture and he presents today for incision of bladder neck contracture. He did undergo a transurethral resection of prostate in March 2020. Initially he was voiding well but his urination has slowed over the past few months. He has been cleared from a cardiac standpoint and presents today for procedure. Operative findings:: There was a bladder neck contracture present. After cutting the incision and opening and the bladder was entered and was examined in a systematic fashion. There is no evidence of bladder abnormalities. The prostate was well resected. Operative note:: Patient taken to the operating room after informed consent was obtained. He was placed on the operating table in supine position and general anesthesia administered. Was placed into the dorsal lithotomy position prepped and draped in the standard surgical fashion. Preoperative antibiotics and sequential compression devices were placed. The 19 Irish cystoscope was passed into the urethra and again of note was a a tight bladder neck contracture. A guidewire was passed through a very tight opening and our cystoscope was removed. Our resectoscope sheath with a Mikey knife was then placed into the urethra and the bladder neck was incised at the 5:00 and 7:00 positions as well as the 12 o'clock position. The bladder neck sprung open very nicely and the bladder was entered with the cystoscope. The bladder was examined in a systematic fashion. There was some trabeculation and cellule formation but no mucosal abnormalities. The bladder was drained and again examined on the way out. The bladder neck was now wide open and the scope removed without difficulty. A 22 Irish shoal[place] tip catheter then passed over the guidewire and the guidewire was removed. 20 cc placed into the balloon and was placed to drainage. Patient tolerated the procedure well there are no complications. Plan is to go home with his Everett catheter for a week. Condition: stable Disposition: same day Specimens:: None Complications:: None
--- NOTE | 2021-01-31 14:06 | P.PN_ITS ---
[facility] Anesthesia Record Part II Discharge Time: 12:40 Destination: Surgical Day Care (OP Surgery) PACU nurse assessment reviewed?: Yes Patient Condition:: Good Anesthesia Complications:: None Swallowing reflex intact?: Yes Cyanosis?: No Blood Pressure: 118/58 Pulse Rate: 60 Temperature: 97.3 F Mental Status: Alert & Oriented Pain level:: 0 Nausea and/or vomitting:: None Intake, IV Amount: 0
== END 2021-01-31 13:15 | disposition home or self-care (01) ==
LOC: OR 08:54
PROVIDERS: PCP Family Medicine; Visit Provider Urology
DX: N32.0 Bladder-neck obstruction (principal); I25.10 Atherosclerotic heart disease of native coronary artery without angina pectoris; I11.0 Hypertensive heart disease with heart failure; Z85.46 Personal history of malignant neoplasm of prostate
CPT/HCPCS: 52276; C1769; J2405

== ENCOUNTER → 2021-05-10 14:56 | Outpatient (CLI) | payer MEDICARE, SELFPAY | PROVIDERS: Visit Provider Urology | DX: R32 Unspecified urinary incontinence (principal) | CPT/HCPCS: 87086; 87088; 87186 ==

== ENCOUNTER → 2021-05-18 10:02 | Outpatient (CLI) | payer MEDICARE, SELFPAY ==
[2021-05-18 10:48] LABS: Albumin Level 3.8 g/dl (3.5-5.0); Blood Urea Nitrogen 48 mg/dl (9-20); Calcium 9.6 mg/dl (8.4-10.2); Carbon Dioxide 29 mmol/L (22.0-30.0); Chloride 105 mmol/L (98-107); Estimated Glomerular Filt Rate 26 ml/min (>60); GFR (African American) 31 ML/MIN (>60); Glucose 103 mg/dl (74-100); Phosphorous 3.9 mg/dl (2.5-4.5); Sodium 142 mmol/L (136-145)
[2021-05-18 11:06] LABS: 25-OH Vitamin D, Total 57.6 ng/mL (30-100)
== END ==
PROVIDERS: Visit Provider Internal Medicine Nephrology
DX: N18.4 Chronic kidney disease, stage 4 (severe) (principal)
CPT/HCPCS: 36415; 80069; 82306

== ENCOUNTER → 2021-05-23 12:40 | Outpatient (POV) | payer MEDICARE, SELFPAY | PROVIDERS: Visit Provider Internal Medicine Nephrology | DX: Z00.00 Encounter for general adult medical examination without abnormal findings (principal) ==

== ENCOUNTER → 2021-06-21 15:37 | Outpatient (CLI) | payer MEDICARE, SELFPAY | PROVIDERS: Visit Provider Urology | DX: N28.9 Disorder of kidney and ureter, unspecified (principal); B95.2 Enterococcus as the cause of diseases classified elsewhere | CPT/HCPCS: 87086; 87088; 87186 ==

== ENCOUNTER → 2021-08-02 15:43 | Outpatient (CLI) | payer MEDICARE, SELFPAY | PROVIDERS: Visit Provider Urology | DX: R35.0 Frequency of micturition (principal) | CPT/HCPCS: 87086 ==

== ENCOUNTER 2021-09-07 17:38 | Emergency (ER) | payer MEDICARE, SELFPAY ==
[2021-09-07 17:40] VITALS: BP 144/63; PULSE 78; RESP 18; TEMP 37.2; O2SAT 98; BMI 32.5
[2021-09-07 19:54] LABS: Microscopic, Urine URINE MICROSCOPIC (MICROSCOPIC)
[2021-09-07 20:00] VITALS: BP 131/47; PULSE 78; O2SAT 98
[2021-09-07 20:26] LABS: Appearance,Urine CLEAR (Clear); Blood, Urine 3+ (Negative); Color,Urine YELLOW (Yellow); Glucose,Urine (UA) TRACE (Negative); Ketones,Urine 1+ (Negative); Leukocyte Esterase,Urine 2+ (Negative); Nitrate,Urine POSITIVE (Negative); Protein,Urine 3+ (Negative); Specific Gravity, Urine 1.015 (1.005-1.030); Urobilinogen,Urine >=8.0 EU/dl (0.2)
[2021-09-07 20:40] LABS: Bilirubin,Urine 1+ (Negative)
[2021-09-07 21:00] VITALS: BP 117/45; PULSE 74; O2SAT 98
[2021-09-07 21:44] LABS: Bacteria,Urine 2+ /lpf; RBC,Urine TNTC #/hpf (0-3)
[2021-09-07 22:00] VITALS: BP 118/49
--- NOTE | 2021-09-07 22:05 | HMH.EDUROGM ---
ED Disposition Clinical Impression: Acute retention of urine, History of prostate cancer, Renal insufficiency Urinary tract infection Qualifiers: Urinary tract infection type: site unspecified Hematuria presence: with hematuria Qualified Code(s): N39.0 - Urinary tract infection, site not specified; R31.9 - Hematuria, unspecified Disposition: Home, Self-Care Condition on Discharge: Good Instructions: How to Care for Your Everett Catheter -- Male, DI for Urinary Tract Infection (UTI), DI for Urinary Retention in Men Additional Instructions: call pcp and dr butterfield in am and use meds as directed Prescriptions: cephALEXin [cephALEXin 500mg capsule*] 500 mg PO TID #30 cap Transmission Status: Pending to [id number] Referrals: Saba Sosa MD [Primary Care Provider] - Catarino Butterfield MD [Staff Physician] - - Critical Care Critical Care Time: No Attestation: On 09/07/21, the high probability of a clinically significant, sudden or life threatening deterioration of the following system(s) required my full and direct attention, intervention and personal management. The time I documented below is in addition to time spent performing reported procedures but includes the following listed in this critical care notation. Medical Decision Making - Medical Records Medical records reviewed: Yes: I reviewed the patient's medical records. - Rudolph Inquiry Pt receiving controlled substance: No Vital Signs: 09/07/21 17:40 Temperature 99.0 F Temperature Source Oral Pulse Rate [Right Radial] 78 Respiratory Rate 18 Blood Pressure [Right Arm] 144/63 H Blood Pressure Mean [Right Arm] 90 Blood Pressure Source [Right Arm] Automatic Cuff Blood Pressure Position [Right Arm] Sitting 02 Sat by Pulse Oximetry 98 Oxygen Delivery Method Room Air - Lab Data Lab results reviewed: Yes: I reviewed the patient's lab results. Lab Results 09/07/21 19:51: Urine Color Yellow, Urine Appearance Clear, Urine pH 7.0, Ur Specific [place] 1.015, Urine Protein 3+, Urine Glucose (UA) Trace, Urine Ketones 1+, Urine Blood 3+, Urine Nitrate Positive, Urine Bilirubin 1+ A, Urine Urobilinogen >=8.0, Ur Leukocyte Esterase 2+ A, Urine RBC Tntc, Urine WBC 5-10, Ur Squamous Epith Cells None, Urine Bacteria 2+ 09/07/21 22:14: WBC 12.4 H, RBC 4.20 L, Hgb 11.6 L, Hct 36.2 L, MCV 86.2, MCH 27.7, MCHC 32.1, RDW 15.4, Plt Count 332, MPV 7.9, Neut % (Auto) 69.6, Lymph % (Auto) 20.5, [place] % (Auto) 5.9, Eos % (Auto) 3.0, Baso % (Auto) 0.9, Neut # (Auto) 8.7 H, Lymph # (Auto) 2.6, [place] # (Auto) 0.7, Eos # (Auto) 0.4, Baso # (Auto) 0.1 09/07/21 22:14: Sodium 139, Potassium 5.2 H, Chloride 102, Carbon Dioxide 28, Anion Gap 14.2, BUN 63 H, Creatinine 2.80 H, Estimated Creat Clear 28, Estimated GFR 22 L, Est GFR ( Amer) 26 L, Glucose 112 H, Calcium 9.5, Total Bilirubin 0.5, AST 47, ALT 27, Alkaline Phosphatase 120, Total Protein 7.6, Albumin 4.3, Globulin 3.3 H, Albumin/Globulin Ratio 1.3 Result diagrams: 09/07/21 22:14 09/07/21 22:14 Orders (Tests/Meds): ORDERS Category Date Time Status Urine Culture Stat Micro 09/07/21 19:51 Received - CT Data CT Scan: Abdomen, Pelvis Time Received: 23:[address] Reviewed: Yes: I have viewed the radiologist's interpretation Preliminary Findings: Abnormal (see report ) Medical Decision Narrative: has known prostate dis and has bleeding with abn ct and u/a but has decreased renal function and will have pt call [facility] in am and his pcp and hold k/lisinopril and lasix till discussed with pcp Male Urogenital HPI - General Chief complaint: Urogenital-Male Stated complaint: bleeding thur kidneys,can't uninate Time Seen by Provider: 09/07/21 20:30 Mode of Arrival: Ambulatory Source of Information: Patient, Medical Record Limitations: No Limitations Description of Symptoms (Recalled from ER Triage Doc. by RN): Pt reports difficulty urinating since 3am w/ pain and blood in urine. Pt says that since 3pm though he has no
[2021-09-07 22:26] LABS: Basophils # 0.1 K/mm3 (0-0.2); Basophils % 0.9 % (0.1-2.0); Eosinophils # 0.4 K/mm3 (0.0-0.4); Hematocrit 36.2 % (42.0-52.0); Hemoglobin 11.6 g/dL (14.1-18.0); Lymphocytes # 2.6 K/mm3 (0.7-4.5); Lymphocytes % 20.5 % (10-50); Mean Corpuscular HGB Conc 32.1 g/dL (31.8-35.4); Mean Corpuscular Hemoglobin 27.7 pg (27.0-31.2); Mean Corpuscular Volume 86.2 fl (80-94); Mean Platelet Volume 7.9 fl (7.4-10.4); Monocytes # 0.7 K/mm3 (0.1-1.0); Monocytes % 5.9 % (1.7-9.3); Neutrophils # 8.7 K/mm3 (1.8-7.8); Neutrophils % 69.6 % (37.0-80.0); Platelet Count 332 K/mm3 (142-424); Red Cell Distribution Width 15.4 % (11.5-17.5); White Blood Count 12.4 K/mm3 (4.8-10.8)
[2021-09-07 22:33] LABS: Alanine Aminotransferase 27 U/L (12-78); Albumin Level 4.3 g/dl (3.5-5.0); Albumin/Globulin Ratio 1.3 (1.1-1.8); Alkaline Phosphatase 120 U/L (38-126); Anion Gap 14.2 mEq/L (5-15); Aspartate Amino Transferase 47 U/L (17-59); Bilirubin,Total 0.5 mg/dl (0.2-1.3); Blood Urea Nitrogen 63 mg/dl (9-20); Calcium 9.5 mg/dl (8.4-10.2); Carbon Dioxide 28 mmol/L (22.0-30.0); Chloride 102 mmol/L (98-107); Creatinine Clearance Estimated 28 mL/min (50-200); Estimated Glomerular Filt Rate 22 ml/min (>60); GFR (African American) 26 ML/MIN (>60); Globulin 3.3 g/dL (1.3-3.2); Glucose 112 mg/dl (74-100); Potassium 5.2 mmoL/L (3.5-5.1); Sodium 139 mmol/L (136-145); Total Protein,Serum 7.6 g/dl (6.3-8.2)
--- NOTE | 2021-09-07 22:38 | CT_ITS ---
PROCEDURE INFORMATION: Exam: CT Abdomen And Pelvis Without Contrast Exam date and time: 09/07/2021 10:38 PM Age: 81 years old Clinical indication: Other: Blood in urine; Patient HX: HX prostate and bladder cancer TECHNIQUE: Imaging protocol: Computed tomography of the abdomen and pelvis without contrast. Total images: 331 Radiation optimization: All CT scans at this facility use at least one of these dose optimization techniques: automated exposure control; mA and/or kV adjustment per patient size (includes targeted exams where dose is matched to clinical indication); or iterative reconstruction. COMPARISON: CT PELVIS WO CON 03/07/2020 2:34 AM FINDINGS: Lungs: Pulmonary nodule in the right middle lobe lateral segment on series 3, image 11 measuring 9.5 x 6.5 mm, unchanged from 02/26/2020. Recommend follow-up CT in 6-12 months to confirm greater than 2 year stability. Granulomatous calcification in the left lung base. Pleural spaces: Mild chronic bilateral basilar pleural scarring unchanged. Heart: Heart size normal. Moderate-severe coronary artery calcification. Mediastinal space: The visualized distal esophagus is largely contracted without gross abnormality. Liver: Normal contour. No mass lesions. No intrahepatic biliary ductal dilatation. Gallbladder and bile ducts: The gallbladder is partially contracted but otherwise unremarkable. Nondilated common bile duct. Pancreas: Normal. No inflammatory changes or ductal dilation. Spleen: Normal. No splenomegaly. Adrenal glands: Normal. No adrenal mass. Kidneys and ureters: Moderate bilateral symmetrical perinephric stranding, nonspecific. This is unchanged and may relate to chronic perirenal scarring. No hydronephrosis or urolithiasis. Mild ectasia of the distal left ureter near the pelvic brim which tapers to normal caliber distally and may represent incidental chronic ectasia with similar but slightly lesser ectasia in this segment on 02/26/2020. No urinary tract stones are identified. There are bilateral renal cortical lesions demonstrating low density values and circumscribed margins favoring simple renal cysts. No further imaging evaluation is required. 14 mm complex lesion at the lateral midpole of the left kidney is minimally increased in size from 02/26/2020 measuring up to 14 mm and 28 Hounsfield units. This is an indeterminate lesion, recommend nonemergent pre and postcontrast MRI to exclude solid features, or possibly sonographic assessment if the patient cannot receive contrast. Stomach and bowel: The stomach is unremarkable. The small bowel is nondilated with no gross abnormality. No acute colonic abnormalities. Mild diverticulosis involving the distal colon without evidence of acute diverticulitis. Appendix: The appendix is normal in caliber and demonstrates no evidence of appendicitis. Intraperitoneal space: Mildly increased density of the mesentery. Findings are nonspecific and may be chronic. Leading considerations include mesenteric panniculitis, edema related to systemic causes, and reactive edema secondary to subtle infectious or inflammatory bowel pathology. Lack of adenopathy would make lymphoma less likely. Vasculature: Moderate atherosclerotic aortoiliac calcification without aneurysm. Normal variant common origin of the celiac and SMA. Lymph nodes: See Intraperitoneal space finding. Urinary bladder: Everett catheter well positioned in the bladder lumen. There is nonspecific moderate bladder wall thickening and perivesicular stranding which may relate to cystitis or neoplasm. Reproductive: Unremarkable as visualized. Bones/joints: No acute osseous abnormalities. Moderate
[2021-09-07 23:43] VITALS: BP 133/51; PULSE 75; RESP 18; TEMP 37.2; O2SAT 97
== END 2021-09-07 23:54 | disposition home or self-care (01) ==
PROVIDERS: Emergency Provider Emergency Medicine; PCP Family Medicine
DX: R33.8 Other retention of urine (principal); N30.01 Acute cystitis with hematuria; N28.9 Disorder of kidney and ureter, unspecified; I25.10 Atherosclerotic heart disease of native coronary artery without angina pectoris; I10 Essential (primary) hypertension
CPT/HCPCS: 51702; 74176; 80053; 81001; 85025; 87086; 99283

== ENCOUNTER → 2021-10-31 08:55 | Outpatient (CLI) | payer MEDICARE, SELFPAY ==
[2021-10-31 09:27] LABS: Alanine Aminotransferase 20 U/L (12-78); Aspartate Amino Transferase 29 U/L (17-59); Bilirubin,Unconjugated 0.2 mg/dL (0.0-1.1)
[2021-10-31 09:28] LABS: Albumin Level 4.1 g/dl (3.5-5.0); Alkaline Phosphatase 103 U/L (38-126); Bilirubin,Direct 0.4 mg/dl (0.0-0.4); Bilirubin,Indirect 0.2 mg/dL (0.0-0.9); Bilirubin,Total 0.6 mg/dl (0.2-1.3); Chol/HDL Ratio 2.9 (1-3.5); Cholesterol 124 mg/dl (140-200); HDL Cholesterol 43 mg/dl (40-60); Total Protein,Serum 7.5 g/dl (6.3-8.2); Triglycerides 83 mg/dl (30-150); VLDL Cholesterol 17 mg/dL (0-40)
[2021-10-31 09:39] LABS: Direct LDL Cholesterol 53.86 mg/dL (100-129)
== END ==
PROVIDERS: Visit Provider Nurse Practitioner Family
DX: E78.2 Mixed hyperlipidemia (principal); I10 Essential (primary) hypertension; I25.118 Atherosclerotic heart disease of native coronary artery with other forms of angina pectoris
CPT/HCPCS: 36415; 80061; 80076

== ENCOUNTER 2021-11-11 14:28 | Emergency (ER) | payer MEDICARE, SELFPAY ==
--- NOTE | 2021-11-11 15:00 | PC.NURSE ---
ATTEMPTED TO PLACE COUDE MADSEN CATH, UNABLE TO DO SO AT THIS TIME, RESISTANCE FELT. OFFICE CALLED AND OFFICE STAFF STATES HE HAS A FEW MORE PT AND THEN HE WILL BE TO SEE THE PT IN THE ER. PT UPDATED AT THIS TIME AND OK WITH THE PLAN AND SIT IN THE TRIAGE ROOM DUE TO NO BED AVAILABILITY IN ER AT THIS TIME.
[2021-11-11 15:14] VITALS: BP 134/57; PULSE 82; RESP 18; TEMP 37.3; O2SAT 97; BMI 31.0
--- NOTE | 2021-11-11 15:14 | PC.NURSE ---
pt in triage awaiting room availability at this time
[2021-11-11 15:27] VITALS: BMI 28.7
--- NOTE | 2021-11-11 15:28 | PC.NURSE ---
pt to restroom at this time, was able to void small amount, able to obtain small amount of urine to send to lab for analysis.
[2021-11-11 15:36] LABS: Microscopic, Urine URINE MICROSCOPIC (MICROSCOPIC)
[2021-11-11 15:40] LABS: Appearance,Urine CLEAR (Clear); Bilirubin,Urine Negative (Negative); Blood, Urine 3+ (Negative); Color,Urine RED (Yellow); Glucose,Urine (UA) TRACE (Negative); Ketones,Urine TRACE (Negative); Leukocyte Esterase,Urine TRACE (Negative); Nitrate,Urine POSITIVE (Negative); Protein,Urine 2+ (Negative)
[2021-11-11 15:57] LABS: Bacteria,Urine Trace /lpf; RBC,Urine TNTC #/hpf (0-3)
--- NOTE | 2021-11-11 16:14 | PC.NURSE ---
Dr. Schilling speaking with pt
--- NOTE | 2021-11-11 16:22 | PC.NURSE ---
Dr. Butterfield requested that we take pt up to a procedure room on 1st floor so that he can attempt to place catheter in pt r/t no room available in ED at this time. house supervisor notified, she is sending nurse to accompany pt in procedure room as pt is still an ER pt. arti lackey transported pt to procedure room with dr. butterfield via wheelchair
--- NOTE | 2021-11-11 17:06 | HMH.CONS ---
*Admission Date: 11/11/21 *Reason for consult:: Gross hematuria with difficulty voiding and inability to place Everett cathet *History of present illness: Patient is an 81-year-old white male well-known to me. 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 He has had some urinary incontinence since then that has been controlled with Myrbetriq. Patient comes the ER today complaining of some blood in his urine over 24-hour duration and voiding only small amounts. The nurses in urgent treatment center attempted a Everett catheter placement but were on successful. I attempted to pass a 16 Czech Everett catheter myself and met resistance at the bladder neck. Discussed the need for cystoscopy and possible dilation of recurrent contracture. [facility] History Medical History: Reports:: BPH, Cancer, Coronary Artery Disease, Hyperlipidemia, Hypertension, Kidney Stones, Myocardial Infarction, Renal Disease, Renal Insufficiency, Urinary Tract Infection Denies:: Diabetes Mellitus Type 1, Diabetes Mellitus Type 2, Internal Pacemaker, MRSA, Seizures *Have you ever received a pneumonia vaccine?: Yes *Have you received a flu vaccine this season?: Yes Other Medical History: Reports: Arthritis. Denies: Blood Transfusion Reaction Other Surgeries: Yes: No Previous Surgery, CABG, Cancer Surgery, Cardiac Catheterization, Colonoscopy, Coronary Stent. No: Pacemaker Amputation: No Fractures: No - *Social History Smoking Status: Former smoker Tobacco Type: cigarettes Alcohol Intake: former Alcohol Intake Frequency:: holidays/special occasions only Substance Use Type: denies use *Occupational Status:: retired Housing: house Household Members: spouse *Travel in the last 8 weeks: None Family Hx:: No significant family history Review of Systems - Review of Systems Review of systems:: pertinent systems reviewed and negative unless documented below Meds Home Medications Medication Instructions Recorded Confirmed Type Amlodipine Besylate [Norvasc 5mg 5 mg PO DAILYDM 08/06/17 10/27/21 History tablet] carvediloL [Carvedilol 25mg Tab] 25 mg PO BID 08/06/17 10/27/21 History mycophenolate mofetiL [Cellcept] 250 mg PO BID 08/06/17 10/27/21 History furosemide 40 mg tablet 40 mg PO BID 02/27/20 10/27/21 History Azelastine HCl [Azelastine Nasal 1 spray NS BID 04/09/20 10/27/21 History [place] 30mL Bottle] Ferrous Gluconate [Ferrous 324 mg PO DAILY 04/09/20 10/27/21 History Gluconate 324mg Tab] lisinopril 20 1 tab PO DAILY tab 12/10/20 10/27/21 History mg-hydrochlorothiazide 12.5 mg tablet potassium chloride 10 mEq 20 meq PO DAILY cap 12/10/20 10/27/21 History capsule,extended release Atorvastatin Calcium [Lipitor 40mg 40 mg PO DAILY 01/31/21 10/27/21 History Tab] aspirin 81 mg tablet,delayed 81 mg PO DAILY #30 tab 03/24/21 10/27/21 Rx release mirabegron 50 mg tablet,extended 50 mg PO DAILY #30 tab 08/02/21 10/27/21 Rx release 24 hr cephALEXin [cephALEXin 500mg 500 mg PO TID #30 cap 09/07/21 10/27/21 Rx capsule*] Allergies Allergy/AdvReac Type Severity Reaction Status Date / Time No Known Allergies Allergy Verified 10/27/21 10:00 Exam Vital signs and Labs for Last 24 Hours: Laboratory Results - last 24 hr 11/11/21 15:29: Urine Color Red, Urine Appearance Clear, Urine pH 7.0, Ur Specific [place] 1.010, Urine Protein 2+, Urine Glucose (UA) Trace, Urine Ketones Trace, Urine Blood 3+, Urine Nitrate Positive, Urine Bilirubin Negative, Urine Urobilinogen 1.0, Ur Leukocyte Esterase Trace, Urine RBC Tntc, Urine WBC 5-10, Ur Squamous Epith Cells None, Urine Bacteria Trace I & O for Last 24 hours: Intake & Output 11/08/21 11/09/21 11/10/21 11/11/21 23:59 23:59 23:59 23:59 Weight 90.718 kg - Constitutional no acute distress - *Routine HEENT Exam Head: Present: normocephalic Eye: Present: EOMI, PERRL ENT: Present: delvin
--- NOTE | 2021-11-11 17:12 | PC.NURSE ---
Pt transported back to ED from Outpatient Treatment Room one. Pt stable, no c/o pain, states he feels better after Catheter insertion. Handoff given to MARINE SERVICES TECHNICIAN and ER MD.
--- NOTE | 2021-11-11 17:15 | PC.NURSE ---
per arti diego who transported pt back to ER from procedure room, dr. butterfield placed ag catheter, dilated pt x3 when placing catheter. Pt was given a prescription by dr. butterfield and told to follow up in the office on sunday. pt arrived back via stretcher.
--- NOTE | 2021-11-11 17:57 | PC.NURSE ---
pt ag cathether draining bloody urine. pt reports feeling better, states feels like his bladder is draining.
--- NOTE | 2021-11-11 18:25 | HMH.EDGENADL ---
ED Disposition Clinical Impression: Urinary retention Constipation Qualifiers: Constipation type: unspecified constipation type Qualified Code(s): K59.00 - Constipation, unspecified Disposition: Home, Self-Care Condition on Discharge: Good Additional Instructions: Take antibiotic as prescribed by Dr. Schilling. See Dr. Schilling in his office next week as instructed. MiraLAX as prescribed for constipation. Prescriptions: polyethylene glycoL 3350 [Miralax 17gm Packet] 17 gm PO DAILY #5 packet Transmission Status: Pending to [id number] Referrals: Saba Sosa MD [Primary Care Provider] - - Critical Care Critical Care Time: No Attestation: On 11/11/21, the high probability of a clinically significant, sudden or life threatening deterioration of the following system(s) required my full and direct attention, intervention and personal management. The time I documented below is in addition to time spent performing reported procedures but includes the following listed in this critical care notation. Medical Decision Making - Rudolph Inquiry Pt receiving controlled substance: No Vital Signs: 11/11/21 15:14 11/11/21 18:32 Temperature 99.2 F Temperature Source Oral Pulse Rate 83 Pulse Rate [Left Radial] 82 Respiratory Rate 18 16 Blood Pressure 137/63 Blood Pressure [Left Arm] 134/57 L Blood Pressure Mean [Left Arm] 82 Blood Pressure Source [Left Arm] Automatic Cuff Blood Pressure Position [Left Arm] Sitting 02 Sat by Pulse Oximetry 97 97 Oxygen Delivery Method Room Air - Lab Data Lab Results 11/11/21 15:29: Urine Color Red, Urine Appearance Clear, Urine pH 7.0, Ur Specific [place] 1.010, Urine Protein 2+, Urine Glucose (UA) Trace, Urine Ketones Trace, Urine Blood 3+, Urine Nitrate Positive, Urine Bilirubin Negative, Urine Urobilinogen 1.0, Ur Leukocyte Esterase Trace, Urine RBC Tntc, Urine WBC 5-10, Ur Squamous Epith Cells None, Urine Bacteria Trace Orders (Tests/Meds): ORDERS Category Date Time Status Urology Consult [Consult to Urology] [CONS] Stat Cons 11/11/21 15:28 Active General Adult HPI - General Chief complaint: Urogenital-Male Stated complaint: unable to use the restroom Time Seen by Provider: 11/11/21 18:25 Mode of Arrival: Wheelchair Limitations: No Limitations Description of Symptoms (Recalled from ER Triage Doc. by RN): Pt reports unable to urinate, only can dribble. Pt reports urine is bloody. Pt reports he has prostate cancer. Pt reports has had to have a catheter before r/t being unable to void. Pt has been seen in the past by Dr. Schilling. - History of Present Illness HPI narrative: Patient complains of difficulty urinating that began this morning. Denies fever or vomiting. He has had some hematuria. He says he has prior history of prostate problems, for previous prostate surgeries. Nurse attempted to insert a catheter while the patient was waiting to be seen by me. Unsuccessful. Dr. Schilling was contacted and took the patient to the treatment room. Was unable to insert a catheter and performed cystoscope with dilatation and catheter placement. He has started the patient on cefdinir and the patient is to follow-up with him in the next week. The patient feels like his problem has resolved. He also complains of constipation. Last bowel movement a couple of days ago. He says he does take a stool softener. - Related Data Home Medications Medication Instructions Recorded Confirmed Amlodipine Besylate [Norvasc 5mg 5 mg PO DAILYDM 08/06/17 10/27/21 tablet] carvediloL [Carvedilol 25mg Tab] 25 mg PO BID 08/06/17 10/27/21 mycophenolate mofetiL [Cellcept] 250 mg PO BID 08/06/17 10/27/21 furosemide 40 mg tablet 40 mg PO BID 02/27/20 10/27/21 Azelastine HCl [Azelastine Nasal 1 spray NS BID 04/09/20 10/27/21 [place] 30mL Bottle] Ferrous Gluconate [Ferrous 324 mg PO DAILY 04/09/20 10/27/21 Gluconate 324mg Tab] lisinopril 20 1 tab PO DAILY tab
[2021-11-11 18:32] VITALS: BP 137/63; PULSE 83; RESP 16; O2SAT 97
[2021-11-11 19:38] VITALS: BP 135/74; PULSE 78; RESP 16; TEMP 36.6; O2SAT 98
== END 2021-11-11 19:39 | disposition home or self-care (01) ==
PROVIDERS: Emergency Provider Emergency Medicine; PCP Family Medicine
DX: R33.8 Other retention of urine (principal); K59.00 Constipation, unspecified; I10 Essential (primary) hypertension; E78.5 Hyperlipidemia, unspecified; I25.2 Old myocardial infarction; N28.9 Disorder of kidney and ureter, unspecified; Z87.891 Personal history of nicotine dependence; Z79.899 Other long term (current) drug therapy
CPT/HCPCS: 81001; 99283

== ENCOUNTER → 2021-11-16 11:27 | Outpatient (CLI) | payer MEDICARE, SELFPAY ==
[2021-11-16 12:47] LABS: Albumin Level 3.8 g/dl (3.5-5.0); Anion Gap 10.2 mEq/L (5-15); Blood Urea Nitrogen 54 mg/dl (9-20); Calcium 9.6 mg/dl (8.4-10.2); Carbon Dioxide 27 mmol/L (22.0-30.0); Chloride 105 mmol/L (98-107); Estimated Glomerular Filt Rate 25 ml/min (>60); GFR (African American) 30 ML/MIN (>60); Glucose 112 mg/dl (74-100); Phosphorous 3.9 mg/dl (2.5-4.5); Potassium 4.2 mmoL/L (3.5-5.1); Sodium 138 mmol/L (136-145)
[2021-11-16 12:54] LABS: Creatinine,Urine Random 71 mg/dL (Not Estab.)
[2021-11-16 12:59] LABS: Intact Parathyroid Hormone 65.6 pg/mL (7.5-53.5)
[2021-11-16 13:05] LABS: 25-OH Vitamin D, Total 40.7 ng/mL (30-100)
[2021-11-17 05:52] LABS: Hematocrit 34.7 % (42.0-52.0); Hemoglobin 10.3 g/dL (14.1-18.0); Mean Corpuscular HGB Conc 29.7 g/dL (31.8-35.4); Mean Corpuscular Hemoglobin 26.1 pg (27.0-31.2); Mean Corpuscular Volume 87.8 fl (80-94); Platelet Count 322 K/mm3 (142-424); Red Blood Count 3.95 M/mm3 (4.60-6.20); Red Cell Distribution Width 15.9 % (11.5-17.5)
[2021-11-17 05:53] LABS: Basophils # 0.1 K/mm3 (0-0.2); Basophils % 0.8 % (0.1-2.0); Eosinophils # 0.5 K/mm3 (0.0-0.4); Eosinophils % 5.2 % (0.1-12.0); Lymphocytes # 1.9 K/mm3 (0.7-4.5); Lymphocytes % 18.9 % (10-50); Mean Platelet Volume 11.4 fl (7.4-10.4); Monocytes % 9.5 % (1.7-9.3); Neutrophils # 6.5 K/mm3 (1.8-7.8); Neutrophils % 65.4 % (37.0-80.0)
== END ==
PROVIDERS: Visit Provider Internal Medicine Nephrology
DX: N18.4 Chronic kidney disease, stage 4 (severe) (principal)
CPT/HCPCS: 36415; 80069; 82043; 82306; 82570; 83970; 85025

== ENCOUNTER 2021-11-18 12:53 | Emergency (ER) | payer MEDICARE, SELFPAY ==
[2021-11-18 12:54] VITALS: BP 166/77; PULSE 85; RESP 14; TEMP 37.1; O2SAT 98; BMI 30.7
[2021-11-18 13:09] VITALS: BP 166/77; PULSE 88; RESP 21; O2SAT 99
[2021-11-18 13:31] VITALS: BP 175/76; PULSE 85; RESP 18; O2SAT 97
--- NOTE | 2021-11-18 13:32 | HMH.EDGENADL ---
ED Disposition Clinical Impression: Prostate cancer, Urinary retention Disposition: Home, Self-Care Condition on Discharge: Good Instructions: DI for Urinary Tract Infection (UTI), DI for Urinary Tract Infection in Children Additional Instructions: follow up with your urologist on Sunday, keep Ag catheter in place until following up with him. Continue home medications including antibiotics. Return with new, worsening, concerning symptoms. Referrals: Saba Sosa MD [Primary Care Provider] - - Critical Care Critical Care Time: No Attestation: On 11/18/21, the high probability of a clinically significant, sudden or life threatening deterioration of the following system(s) required my full and direct attention, intervention and personal management. The time I documented below is in addition to time spent performing reported procedures but includes the following listed in this critical care notation. Medical Decision Making - Medical Records Medical records reviewed: Yes: I reviewed the patient's medical records. - Rudolph Inquiry Pt receiving controlled substance: No Vital Signs: 11/18/21 12:54 11/18/21 13:09 11/18/21 13:31 Temperature 98.8 F Temperature Source Oral Pulse Rate 88 85 Pulse Rate [Left Radial] 85 Respiratory Rate 14 21 18 Blood Pressure 166/77 H 175/76 H Blood Pressure [Right Arm] 166/77 H Blood Pressure Mean 122 134 Blood Pressure Mean [Right Arm] 106 Blood Pressure Source [Right Arm] Automatic Cuff Blood Pressure Position [Right Arm] Sitting 02 Sat by Pulse Oximetry 98 99 97 Oxygen Delivery Method Room Air 11/18/21 14:30 11/18/21 15:00 Temperature Temperature Source Pulse Rate 81 77 Pulse Rate [Left Radial] Respiratory Rate 18 16 Blood Pressure 106/47 L 112/54 L Blood Pressure [Right Arm] Blood Pressure Mean 69 64 Blood Pressure Mean [Right Arm] Blood Pressure Source [Right Arm] Blood Pressure Position [Right Arm] 02 Sat by Pulse Oximetry 97 97 Oxygen Delivery Method - Lab Data Lab Results 11/18/21 13:52: Urine Color Red, Urine Appearance Cloudy, Urine pH 6.5, Ur Specific [place] 1.010, Urine Protein 3+, Urine Glucose (UA) Negative, Urine Ketones Trace, Urine Blood 3+, Urine Nitrate Positive, Urine Bilirubin 1+ A, Urine Urobilinogen 1.0, Ur Leukocyte Esterase 1+ A, Urine RBC Tntc, Urine WBC 10-20, Ur Squamous Epith Cells None, Urine Bacteria 3+, Urine Yeast 1+ Orders (Tests/Meds): ORDERS Category Date Time Status Urine Culture Stat Micro 11/18/21 13:52 Received Medical Decision Narrative: 81-year-old male with history of prostate cancer status post TURP procedure in 2019, urethral stricture presenting to the ED with hematuria, difficulty urinating. Differential diagnoses include urethral stricture, BPH, prostate cancer, hemorrhagic cystitis, urinary retention. Given this work-up will include physical exam, bladder scan/POCUS ultrasound. Vitals are currently stable, patient does have a moderate to large amount of urine in bladder on ultrasound. Given recent difficulty requiring urology to place 16 Prydeinig Ag catheter will speak with the on-call urologist for further recommendations. Urology is not currently available, we were able to place a 16 Prydeinig Ag catheter, drained roughly 1 L of bloody urine. Patient feels much better. At this point he is okay for discharge, he will follow-up with his urologist this upcoming week and continue his antibiotics and have medications as previously directed. Discussed return precautions, he was comfortable and agreeable to this plan. General Adult HPI - General Chief complaint: Urogenital-Male Stated complaint: possible prostate bleeding Time Seen by Provider: 11/18/21 13:32 Mode of Arrival: Ambulatory Source of Information: Patient Limitations: No Limitations Description of Symptoms (Recalled from ER Triage Doc. by RN): c/o unable to urinate and bleeding after taking ag cath out y
--- NOTE | 2021-11-18 13:35 | PC.NURSE ---
has been paged
--- NOTE | 2021-11-18 13:38 | PC.NURSE ---
bladder scanner showed more than 451 in bladder. aware
[2021-11-18 14:12] LABS: Microscopic, Urine URINE MICROSCOPIC (MICROSCOPIC)
[2021-11-18 14:15] LABS: Appearance,Urine CLOUDY (Clear); Blood, Urine 3+ (Negative); Color,Urine RED (Yellow); Glucose,Urine (UA) Negative (Negative); Ketones,Urine TRACE (Negative); Leukocyte Esterase,Urine 1+ (Negative); Nitrate,Urine POSITIVE (Negative); PH,Urine 6.5 (5.0-8.5); Protein,Urine 3+ (Negative)
[2021-11-18 14:30] VITALS: BP 106/47; PULSE 81; RESP 18; O2SAT 97
[2021-11-18 14:40] LABS: Bilirubin,Urine 1+ (Negative)
[2021-11-18 14:41] LABS: RBC,Urine TNTC #/hpf (0-3)
[2021-11-18 14:42] LABS: Bacteria,Urine 3+ /lpf; Yeast,Urine 1+ /lpf
[2021-11-18 15:00] VITALS: BP 112/54; PULSE 77; RESP 16; O2SAT 97
[2021-11-18 15:58] VITALS: BP 112/54; PULSE 77; RESP 16; TEMP 37.1; O2SAT 97
== END 2021-11-18 15:59 | disposition home or self-care (01) ==
PROVIDERS: Emergency Provider Emergency Medicine; PCP Family Medicine
DX: C61 Malignant neoplasm of prostate (principal); R33.8 Other retention of urine; E78.5 Hyperlipidemia, unspecified; I10 Essential (primary) hypertension; I25.2 Old myocardial infarction; Z79.899 Other long term (current) drug therapy; Z87.891 Personal history of nicotine dependence
CPT/HCPCS: 51702; 81001; 87086; 99283

== ENCOUNTER → 2021-11-21 09:46 | Outpatient (POV) | payer MEDICARE, SELFPAY | PROVIDERS: Visit Provider Internal Medicine Nephrology | DX: Z00.00 Encounter for general adult medical examination without abnormal findings (principal) ==

== ENCOUNTER → 2021-12-09 09:55 | Outpatient (CLI) | payer MEDICARE, SELFPAY | PROVIDERS: PCP Family Medicine; Visit Provider Urology | DX: R31.9 Hematuria, unspecified (principal); Z01.812 Encounter for preprocedural laboratory examination; Z11.52 Encounter for screening for COVID-19 | CPT/HCPCS: C9803; U0003; U0005 ==

== ENCOUNTER 2021-12-12 07:22 | Day surgery (SDC) | payer MEDICARE, SELFPAY ==
[2021-12-12 07:52] VITALS: BP 126/83; PULSE 54; RESP 18; TEMP 36.5; O2SAT 99; BMI 31.6
--- NOTE | 2021-12-12 08:46 | P.PN_ITS ---
[facility] Anesthesia Checklist - Structural Data Admitted From: Home Planned Operative Procedure/s: cysto Consent for Planned Operative Procedure(s) Verified: Yes - Additional verifications Anesthesia Reactions: No Hx Blood Transfusions: No Blood Transfusion Reaction: No - Airway Assessment C-Spine Mobility Assessed: Yes TMJ Mobility Assessed: Yes Dentition: Dentures-good fit - Neurological Assessment Level of Consciousness: Awake, Alert, Appropriate - Anesthesia Plan Anesthesia Risk discussed: Yes Anesthesia Plan: Verified ASA Class: III Anesthesia Type: MAC [facility] History I have reviewed the patient's past medical history: Yes Medical History: Reports:: BPH, Cancer (thyroid), Coronary Artery Disease, Hyperlipidemia, Hypertension, Kidney Stones, Myocardial Infarction, Renal Disease, Renal Insufficiency, Urinary Tract Infection Denies:: Diabetes Mellitus Type 1, Diabetes Mellitus Type 2, Internal Pacemaker, MRSA, Seizures *Have you ever received a pneumonia vaccine?: Yes *Have you received a flu vaccine this season?: Yes Other Medical History: Reports: Arthritis. Denies: Blood Transfusion Reaction Anesthesia experience/problems:: none Other Surgeries: Yes: No Previous Surgery, CABG, Cancer Surgery, Cardiac Catheterization, Colonoscopy, Coronary Stent. No: Pacemaker Amputation: No Fractures: No - *Social History Last grade of school completed: High school graduate Smoking Status: Never smoker Tobacco Type: cigarettes Alcohol Intake: never Alcohol Intake Frequency:: holidays/special occasions only Substance Use Type: denies use *Occupational Status:: retired Housing: house Household Members: spouse *Travel in the last 8 weeks: None Family Hx:: No significant family history
[2021-12-12 10:22] VITALS: BP 98/46; PULSE 56; RESP 16; TEMP 36.2; O2SAT 94
[2021-12-12 10:37] VITALS: BP 101/52; PULSE 62; RESP 16; TEMP 36.2; O2SAT 94
[2021-12-12 10:52] VITALS: BP 110/54; PULSE 48; RESP 16; TEMP 36.2; O2SAT 96
[2021-12-12 11:07] VITALS: BP 111/57; PULSE 49; RESP 16; TEMP 36.2; O2SAT 99
--- NOTE | 2021-12-12 12:33 | HMH.OPNOTE ---
Date of procedure: 12/12/21 Pre-op Diagnosis:: Gross hematuria Post-op Diagnosis:: Gross hematuria secondary to some prostatic bleeding at the bladder neck Procedure performed:: Cystoscopy with fulguration bleeding points in the prostate and bladder. Surgeon:: Catarino Schilling MD PASSPORT SUPPORT ASSOCIATE:: Other (víctor s) Anesthesia: MAC Estimated blood loss (mL): 0 Clinical Note:: 81-year-old white male who underwent recent cystoscopy with dilation of stricture has had to episodes of gross hematuria after removing his Everett catheter. He presents today for cystoscopic evaluation. He has been off his aspirin for a couple of weeks. The urine in his Everett bag is clear today. Operative findings:: The bladder showed some bullous edema floor due to the catheter that is been present. There was some evidence of the bleeding at the bladder neck and prostatic urethra. There was a nice TUR defect in the previous stricture was widely patent. Operative note:: Patient taken to the operating room after informed consent was obtained. He was placed on the operating table in the supine position and monitored anesthesia care administered. Preoperative antibiotics administered. He was then placed into the dorsal lithotomy position and prepped draped in the standard surgical fashion. A 22 Micronesian cystoscope passed into the urethra and into the prostatic urethra and into the bladder. The bladder showed some bullous edema for the bladder due to a Everett catheter that been present. There was little bit of hemorrhagic area the floor the bladder as well. No evidence of bladder tumors or other suspicious abnormalities. The bladder neck bled easily with instrumentation. There was a nice TUR defect and the prostate was widely patent as was the previously dilated urethral stricture. Bugbee electrode was placed through the scope but was not adequate reach some of the areas so 826 Micronesian sheath was passed into the bladder and TUR set was used to fulgurate some area of old hemorrhage in the bladder as well as the areas in the bladder neck. Scope then removed and a 16 Micronesian Everett catheter was placed to drainage. Patient tolerated procedure well no complications. I will see him back at the end of the week to remove his catheter. Condition: stable Disposition: same day Specimens:: None Complications:: None
== END 2021-12-12 11:07 | disposition home or self-care (01) ==
LOC: OR 07:23
PROVIDERS: PCP Family Medicine; Visit Provider Urology
PROC: 0TJB8ZZ Inspection of Bladder, Via Natural or Artificial Opening Endoscopic (ICD-10-PCS; CPT 52000; principal; 2021-12-12 09:00)
DX: T83.83XA Hemorrhage due to genitourinary prosthetic devices, implants and grafts, initial encounter (principal); N32.89 Other specified disorders of bladder; N42.1 Congestion and hemorrhage of prostate; I25.10 Atherosclerotic heart disease of native coronary artery without angina pectoris; E78.5 Hyperlipidemia, unspecified; I10 Essential (primary) hypertension; I25.2 Old myocardial infarction; N28.9 Disorder of kidney and ureter, unspecified; M19.90 Unspecified osteoarthritis, unspecified site; Z85.850 Personal history of malignant neoplasm of thyroid; Z86.018 Personal history of other benign neoplasm; Z87.440 Personal history of urinary (tract) infections
CPT/HCPCS: 52214; 96374

== ENCOUNTER 2022-02-15 19:28 | Observation (INO) | payer MEDICARE, SELFPAY ==
[2022-02-15] VITALS (8 sets, daily range): BP systolic 132–164; BP diastolic 59–84; PULSE 76–87; RESP 16–18; TEMP 38.2–39.2; O2SAT 93–99; BMI 31.6; BMI 30.5
--- NOTE | 2022-02-15 20:23 | XR_ITS ---
PROCEDURE INFORMATION: Exam: XR Right Knee Exam date and time: 02/15/2022 9:57 PM Age: 82 years old Clinical indication: Injury or trauma; Fall; Blunt trauma; Knee; Right TECHNIQUE: Imaging protocol: Radiologic exam of the Right knee. Views: 1 or 2 views. COMPARISON: NM BTBB NUC BONE SCAN-WHOLE BODY-TBB 07/19/2015 1:21 PM FINDINGS: Bones/joints: Osteophytosis and eburnation in the tricompartmental distribution. Calcifications of medial and lateral menisci. Soft tissues: Swelling anterior to the patella. Vasculature: Calcifications of the regional arteries. Other findings: Bursal fluid collection. IMPRESSION: 1. Swelling anterior to the patella. 2. Knee joint effusion. 3. Osteoarthritis. 4. Chondrocalcinosis of the meniscal structures. 5. Atherosclerotic vascular disease. 6. No acute fracture is identified.
--- NOTE | 2022-02-15 20:39 | HMH.EDGENADL ---
ED Disposition Clinical Impression: Pyelonephritis Disposition: Admitted as Observation Condition on Discharge: admit - Critical Care Critical Care Time: No Attestation: On 02/15/22, the high probability of a clinically significant, sudden or life threatening deterioration of the following system(s) required my full and direct attention, intervention and personal management. The time I documented below is in addition to time spent performing reported procedures but includes the following listed in this critical care notation. Medical Decision Making - Rudolph Inquiry Pt receiving controlled substance: No Vital Signs: 02/15/22 20:03 02/15/22 21:00 02/15/22 21:53 Temperature 102.5 F H 100.8 F H Temperature Source Oral Oral Pulse Rate 83 81 Pulse Rate [Left Brachial] 84 Respiratory Rate 18 17 Blood Pressure 132/59 L Blood Pressure [Left Arm] 164/75 H Blood Pressure Mean Blood Pressure Mean [Left Arm] 104 Blood Pressure Source [Left Arm] Automatic Cuff Blood Pressure Position [Left Arm] Sitting 02 Sat by Pulse Oximetry 95 97 96 Oxygen Delivery Method Room Air Room Air 02/15/22 22:01 02/15/22 22:30 02/15/22 23:03 Temperature Temperature Source Pulse Rate 82 84 87 Pulse Rate [Left Brachial] Respiratory Rate 16 16 16 Blood Pressure 158/66 H 143/67 H 155/65 H Blood Pressure [Left Arm] Blood Pressure Mean 96 92 95 Blood Pressure Mean [Left Arm] Blood Pressure Source [Left Arm] Blood Pressure Position [Left Arm] 02 Sat by Pulse Oximetry 98 98 99 Oxygen Delivery Method 02/15/22 23:31 02/15/22 23:44 02/16/22 00:00 Temperature 101 F H 99.8 F H Temperature Source Oral Oral Pulse Rate 76 84 Pulse Rate [Left Brachial] 81 Respiratory Rate 16 20 Blood Pressure 153/61 H 145/84 H Blood Pressure [Left Arm] 148/65 H Blood Pressure Mean 91 Blood Pressure Mean [Left Arm] 92 Blood Pressure Source [Left Arm] Automatic Cuff Blood Pressure Position [Left Arm] 02 Sat by Pulse Oximetry 93 L 97 Oxygen Delivery Method Room Air Room Air - Lab Data Lab Results 02/15/22 20:19: Urine Color Red, Urine Appearance Cloudy, Urine pH 6.5, Ur Specific [place] 1.015, Urine Protein 3+, Urine Glucose (UA) Negative, Urine Ketones Trace, Urine Blood 3+, Urine Nitrate Positive, Urine Bilirubin 2+ A, Urine Urobilinogen 1.0, Ur Leukocyte Esterase 2+ A, Urine RBC Tntc, Urine WBC 5-10, Ur Squamous Epith Cells Occasional, Urine Bacteria 1+ 02/15/22 20:19: SARS-CoV-2 (PCR) Not detected, Influenza A Untype (PCR) Not detected, Influenza Type B (PCR) Not detected 02/15/22 20:26: WBC 8.5, RBC 4.27 L, Hgb 11.4 L, Hct 37.4 L, MCV 87.6, MCH 26.7 L, MCHC 30.5 L, RDW 16.0, Plt Count 274, MPV 8.7, Neut % (Auto) 74.7, Lymph % (Auto) 13.9, [place] % (Auto) 8.6, Eos % (Auto) 2.2, Baso % (Auto) 0.7, Neut # (Auto) 6.3, Lymph # (Auto) 1.2, [place] # (Auto) 0.7, Eos # (Auto) 0.2, Baso # (Auto) 0.1 02/15/22 20:26: Sodium 140, Potassium 3.9, Chloride 106, Carbon Dioxide 26, Anion Gap 11.9, BUN 47 H, Creatinine 2.50 H, Estimated Creat Clear 30, Estimated GFR 25 L, Est GFR ( Amer) 30 L, Glucose 167 H, Calcium 9.5, Total Bilirubin 0.4, AST 38, ALT 23, Alkaline Phosphatase 117, Lactate Dehydrogenase 220 L, C-Reactive Protein 53.0 H, Total Protein 7.6, Albumin 4.2, Globulin 3.4 H, Albumin/Globulin Ratio 1.2 02/15/22 20:26: Lactate 1.0 Result diagrams: 02/15/22 20:26 02/15/22 20:26 Orders (Tests/Meds): ED MEDICATIONS Generic Name Dose Route Start Last Admin Trade Name Freq PRN Reason Stop Dose Admin Acetaminophen 650 mg 02/15/22 23:45 02/15/22 23:52 Acetaminophen 325mg Tab PO 03/17/22 23:44 650 mg Q4HP PRN Administration Fever or Mild Pain Morphine Sulfate 2 mg 02/15/22 23:45 Morphine 2mg/Ml Syringe IV 03/17/22 23:44 Q2HP PRN Severe Pain Ondansetron HCl 4 mg 02/15/22 23:45 Ondansetron 4mg/2ml Vial IV 03/17/22 23:44 Q8HP PRN Nausea Sodium Chlorid
[2022-02-15 20:52] LABS: Microscopic,Cath URINE MICROSCOPIC (MICROSCOPIC)
[2022-02-15 20:55] LABS: Appearance,Urine/Cath CLOUDY (Clear); Blood, Urine/Cath 3+ (Negative); Color,Urine/Cath RED (Yellow); Glucose,Urine/Cath (UA) Negative (Negative); Ketones,Urine/Cath TRACE (Negative); Leukocyte Esterase,Cath 2+ (Negative); Nitrate,Cath POSITIVE (Negative); PH,Urine/Cath 6.5 (5.0-8.5); Protein,Urine/Cath 3+ (Negative); Specific Gravity, Urine/Cath 1.015 (1.005-1.030)
[2022-02-15 21:02] LABS: Bilirubin,Cath 2+ (Negative)
[2022-02-15 21:03] LABS: Basophils # 0.1 K/mm3 (0-0.2); Basophils % 0.7 % (0.1-2.0); Eosinophils # 0.2 K/mm3 (0.0-0.4); Eosinophils % 2.2 % (0.1-12.0); Hematocrit 37.4 % (42.0-52.0); Hemoglobin 11.4 g/dL (14.1-18.0); Lymphocytes # 1.2 K/mm3 (0.7-4.5); Lymphocytes % 13.9 % (10-50); Mean Corpuscular HGB Conc 30.5 g/dL (31.8-35.4); Mean Corpuscular Hemoglobin 26.7 pg (27.0-31.2); Mean Corpuscular Volume 87.6 fl (80-94); Mean Platelet Volume 8.7 fl (7.4-10.4); Monocytes # 0.7 K/mm3 (0.1-1.0); Monocytes % 8.6 % (1.7-9.3); Neutrophils # 6.3 K/mm3 (1.8-7.8); Neutrophils % 74.7 % (37.0-80.0); Platelet Count 274 K/mm3 (142-424); Red Blood Count 4.27 M/mm3 (4.60-6.20); White Blood Count 8.5 K/mm3 (4.8-10.8)
[2022-02-15 21:07] LABS: Bacteria,Urine/Cath 1+ /lpf; RBC,Urine/Cath TNTC # /hpf (0-3); Squamous Epithelial Ur./Cath Occasional #/hpf (0-5)
[2022-02-15 21:16] LABS: Alanine Aminotransferase 23 U/L (12-78); Albumin Level 4.2 g/dl (3.5-5.0); Albumin/Globulin Ratio 1.2 (1.1-1.8); Alkaline Phosphatase 117 U/L (38-126); Anion Gap 11.9 mEq/L (5-15); Aspartate Amino Transferase 38 U/L (17-59); Bilirubin,Total 0.4 mg/dl (0.2-1.3); Blood Urea Nitrogen 47 mg/dl (9-20); Calcium 9.5 mg/dl (8.4-10.2); Carbon Dioxide 26 mmol/L (22.0-30.0); Chloride 106 mmol/L (98-107); Creatinine Clearance Estimated 30 mL/min (50-200); Estimated Glomerular Filt Rate 25 ml/min (>60); GFR (African American) 30 ML/MIN (>60); Globulin 3.4 g/dL (1.3-3.2); Glucose 167 mg/dl (74-100); Lactate Dehydrogenase 220 U/L (313-618); Potassium 3.9 mmoL/L (3.5-5.1); Sodium 140 mmol/L (136-145); Total Protein,Serum 7.6 g/dl (6.3-8.2)
--- NOTE | 2022-02-15 21:24 | CT_ITS ---
PROCEDURE INFORMATION: Exam: CT Abdomen And Pelvis Without Contrast Exam date and time: 02/15/2022 9:39 PM Age: 82 years old Clinical indication: Condition or disease; Other: Obstructive uropathy TECHNIQUE: Imaging protocol: Computed tomography of the abdomen and pelvis without contrast. Radiation optimization: All CT scans at this facility use at least one of these dose optimization techniques: automated exposure control; mA and/or kV adjustment per patient size (includes targeted exams where dose is matched to clinical indication); or iterative reconstruction. COMPARISON: CT ABDOMEN PELVIS WO CON 09/07/2021 10:44 PM FINDINGS: Lungs: No mass/infiltrate at either lung base. No pleural effusion. Chronic parenchymal changes are noted within the lower lobes. There are calcified granulomas within each lower lobe. Granulomatous calcification within lymph nodes of the left infrahilar region. Heart: There are calcifications identified within the coronary arteries. There are punctate calcifications identified within myocardium of the left ventricle. This could be on the basis of prior myocardial infarction. Liver: The liver is normal in size and attenuation. No intrahepatic biliary dilitation. Gallbladder and bile ducts: Normal. No calcified stones. No ductal dilation. Gallbladder wall thickness is normal. Pancreas: Normal. No ductal dilation. Spleen: No splenomegaly. Granulomatous calcification noted. Adrenal glands: Normal. No mass. Kidneys and ureters: Prominent bilateral renal cystic changes. Largest cyst arises from the medial superior pole of the left kidney measuring 5.7 cm in long axis. Bilateral renal cortical thinning. No hydronephrosis. Stomach and bowel: There is mild diverticulosis within portions of the left colon without evidence of diverticulitis. No obstruction. No mucosal thickening. Small bowel mesentery is normal. Appendix: Unremarkable. Intraperitoneal space: Unremarkable. No free air. No significant fluid collection. Vasculature: Arterial atheromatous calcifications are noted. No abdominal aortic aneurysm. There are calcified phleboliths within the pelvis. Lymph nodes: Unremarkable. No enlarged lymph nodes. Urinary bladder: There is a Everett catheter identified within the bladder. Limited distention of the bladder. There is a small amount of air noted within the bladder lumen. Reproductive: Central prostatic calcification is noted. Bones/joints: There are degenerative changes of the lower thoracic and lumbar spine. No acute fracture. Soft tissues: Changes of low back surgery are noted. IMPRESSION: 1. Punctate calcifications within myocardium of the left ventricle. This could be on the basis of prior myocardial infarction. 2. Prominent bilateral renal cystic changes with bilateral renal cortical thinning. No hydronephrosis. 3. There is a Everett catheter identified within the bladder with limited distention of the bladder. A small amount of air is noted within the bladder lumen. 4. Changes of low back surgery are noted. COMMENTS: Consistent with the [employer]'s Incidental Findings Committee white paper (J Am Marcela Radiol 2018): Any incidental renal lesion less than 1 cm or classified as too small to characterize, or any incidental cystic renal lesion characterized as simple-appearing, is likely benign. No follow-up imaging is recommended for these lesions per consensus recommendations based on imaging criteria.
--- NOTE | 2022-02-15 21:26 | PC.NURSE ---
MEDICATION LIST UPDATED. MD MADE AWARE OF HX OF STAGE 4 RENAL DISEASE.
[2022-02-15 21:28] LABS: Coronavirus 19, PCR Not Detected (NotDetected); Influenza A, PCR Not Detected (NotDetected); Influenza B, PCR Not Detected (NotDetected)
--- NOTE | 2022-02-15 21:59 | PC.NURSE ---
PT AND FAMILY UPDATED WITH EXPECTED WAIT TIMES AND AWARE TO REMAIN NPO UNTIL RESULTS OF CT ARE BACK.
--- NOTE | 2022-02-15 22:32 | PC.NURSE ---
Pt voiced no needs or complaints at this time.
[2022-02-16] VITALS: BP 148/65; PULSE 81; RESP 20; TEMP 37.7; O2SAT 97
--- NOTE | 2022-02-16 00:21 | PC.NURSE ---
patient up to floor via stretcher @ this time.
[2022-02-16 01:30] VITALS: O2SAT 97
[2022-02-16 04:00] VITALS: BP 127/67; PULSE 83; RESP 18; TEMP 36.6; O2SAT 90
--- NOTE | 2022-02-16 05:01 | PC.NURSE ---
Pt is a+o x4 but is very [place]. Pt states he has had multiple falls at home the past few months. He states he is able to walk with a walker at home but has trouble getting out of bed/recliner. Pt states his cares for him at home. Pt is incontinent of his bowels and wears a brief. Skin CDI. Pt has fc in place draining pink urine with small blood clots noted. Pt has 3+ pitting edema in BLE. 2+ pitting edema in BUE. Pt lung sounds clear. Pt was febrile in ER, Tylenol administered and temp has been WNL since arriving to floor. Call light within reach. Bed alarm on for pt safety.
[2022-02-16 06:33] LABS: Basophils # 0.1 K/mm3 (0-0.2); Basophils % 0.7 % (0.1-2.0); Eosinophils # 0.2 K/mm3 (0.0-0.4); Eosinophils % 2.5 % (0.1-12.0); Hematocrit 32.9 % (42.0-52.0); Hemoglobin 10.9 g/dL (14.1-18.0); Lymphocytes # 1.5 K/mm3 (0.7-4.5); Lymphocytes % 15.3 % (10-50); Mean Corpuscular Hemoglobin 27.9 pg (27.0-31.2); Mean Corpuscular Volume 84.5 fl (80-94); Mean Platelet Volume 8.4 fl (7.4-10.4); Monocytes # 0.9 K/mm3 (0.1-1.0); Monocytes % 9.4 % (1.7-9.3); Neutrophils # 6.8 K/mm3 (1.8-7.8); Platelet Count 246 K/mm3 (142-424); Red Blood Count 3.89 M/mm3 (4.60-6.20); Red Cell Distribution Width 16.1 % (11.5-17.5); White Blood Count 9.5 K/mm3 (4.8-10.8)
[2022-02-16 06:44] LABS: Anion Gap 10.6 mEq/L (5-15); Blood Urea Nitrogen 42 mg/dl (9-20); Carbon Dioxide 24 mmol/L (22.0-30.0); Chloride 110 mmol/L (98-107); Creatinine Clearance Estimated 33 mL/min (50-200); Estimated Glomerular Filt Rate 29 ml/min (>60); GFR (African American) 35 ML/MIN (>60); Glucose 118 mg/dl (74-100); Potassium 3.6 mmoL/L (3.5-5.1); Sodium 141 mmol/L (136-145)
[2022-02-16 08:00] VITALS: BP 117/59; PULSE 74; RESP 16; TEMP 37.4; O2SAT 92
--- NOTE | 2022-02-16 08:46 | HMH.HP ---
*Admission Date: 02/15/22 *Chief complaint: difficulty urinating *History of present illness: Patient is an 82-year-old gentleman past medical history of prostate cancer status post surgical intervention (May 2021) presents emergency department for evaluation of inability to void. History is obtained by patient at bedside who states that he has not been able to void since approximately 0500 this morning. He has had similar problems before requiring in and out catheterization. Per chart review patient also has a urethral stricture and intermittent hematuria. Patient has had some difficulty walking over the last 2 weeks however he attributes this to his legs being heavy, he was recently initiated on a water pill . When necessary patient is able to ambulate with assistance of a walker which is consistent with his baseline. He denies saddle anesthesia. Denies other acute complaints at this time. Patient is not currently on chemotherapy. In summary this is an 82-year-old male with past medical history of prostate cancer status postsurgical intervention not currently on chemotherapy presents emergency department for evaluation of inability to void. Patient is hemodynamically stable, tachycardic, febrile upon arrival temperature greater than 102 ?F. Differential diagnosis includes urinary tract infection, pyelonephritis, worsening malignancy, among others. Catheter was placed at bedside by nursing. Work-up will be conducted including hematologic labs, urinalysis with culture, blood cultures. Initial interventions include ceftriaxone. Work-up was reviewed by me, patient has evidence of CKD. Urinalysis shows active infection with proteinuria concerning for pyelonephritis. CT imaging is nonactionable. Case was discussed with internal medicine they will admit the patient their service for continued evaluation at this time. (above as per ER physician) [facility] History I have reviewed the patient's past medical history: Yes Medical History: Reports:: BPH, Cancer, Congestive Heart Failure, Coronary Artery Disease, Hyperlipidemia, Hypertension, Kidney Stones, Myocardial Infarction, Renal Disease, Renal Insufficiency, Urinary Tract Infection Denies:: Diabetes Mellitus Type 1, Diabetes Mellitus Type 2, Internal Pacemaker, MRSA, Seizures *Have you ever received a pneumonia vaccine?: Yes *Have you received a flu vaccine this season?: Yes Other Medical History: Reports: Arthritis. Denies: Blood Transfusion Reaction Other Surgeries: Yes: CABG, Cancer Surgery, Cardiac Catheterization, Colonoscopy, Coronary Stent, Other. No: Pacemaker Amputation: No Fractures: No - *Social History Smoking Status: Former smoker Tobacco Type: cigarettes # Packs/Day (cigarettes): 6 Smoking End Date: Alcohol Intake: former Alcohol Intake Frequency:: a few times a week Substance Use Type: denies use *Occupational Status:: retired Housing: house Household Members: spouse *Travel in the last 8 weeks: None Family Hx:: Cancer, Coronary Artery Disease, Heart Attack Review of Systems - Constitutional Reports chills, Reports fever(s) - Eyes Denies blurry vision, Denies double vision - ENT Denies nasal congestion, Denies sore throat - *Cardiovascular Denies chest pain, Denies shortness of breath - *Respiratory Denies cough, Denies shortness of breath - *Gastrointestinal Denies abdominal pain, Denies loose stools, Denies nausea, Denies vomiting - *Genitourinary Reports difficulty urinating, Reports blood in urine - *Musculoskeletal Denies joint pain - *Neurologic Reports weakness, Denies headache(s), Denies dizziness Meds Home Medications Medication Instructions Recorded Confirmed Type Amlodipine Besylate [Norvasc 5mg 5 mg PO DAILYDM 08/06/17 02/15/22 History tablet] carvediloL [Carvedilol 25mg Tab] 25 mg PO BID 08/06/17 02/15/22 History mycophenolate mofetiL [Cellcept] 250 mg PO BID 08/06/17 02/15/22 History furosemide 40 mg tablet 40 mg PO
--- NOTE | 2022-02-16 09:03 | PC.NURSE ---
did relay to gregoria rose that patient did not have the rocephin reordered for today, (received in er), as well as no IV fluids at this time. stated she would place orders in.
--- NOTE | 2022-02-16 09:49 | P.CONPHA_ITS ---
[facility] Pharmacy VTE Monitoring - Patient Demographics Admission date: 02/16/22 Report Date: 02/16/22 Time: 09:50 Allergies/Adverse Reactions: Patient Allergies No Known Allergies Allergy (Verified 12/16/21 13:20) Height: 1.75 m Weight: 93.582 kg Patient Problems: Current Active Problems Hematuria (Acute) Pyelonephritis (Acute) Chronic kidney disease (Chronic) CAPO (obstructive sleep apnea) (Chronic) History of prostate cancer (Chronic) HLD (hyperlipidemia) (Chronic) HTN (hypertension) (Chronic) CAD (coronary artery disease) (Chronic) - VTE Risk Labs: VTE Related Lab Results Hgb 10.9 g/dL (14.1-18.0) L 02/16/22 06:13 Hct 32.9 % (42.0-52.0) L 02/16/22 06:13 Plt Count 246 K/mm3 (142-424) 02/16/22 06:13 BUN 42 mg/dl (9-20) H 02/16/22 06:13 Creatinine 2.20 mg/dl (0.66-1.25) H 02/16/22 06:13 Estimated Creat Clear 33 mL/min (50-200) 02/16/22 06:13 - Prophylaxis VTE Prophylaxis Ordered?: Yes Types of VTE Prophylaxis: TEDS Knee High Location of Applied Device: Bilateral Lower Extremeties
[2022-02-16 10:03] VITALS: BMI 30.5
--- NOTE | 2022-02-16 10:04 | HMH.PHAINT ---
MEDICATION RECONCILIATION COMPLETE USING LIST FROM MOST RECENT CARDIOLOGY AND UROLOGY OFFICE VISIT AND EXTERNAL PHARMACY FILL HISTORY.
[2022-02-16 16:00] VITALS: BP 125/52; PULSE 77; RESP 22; TEMP 37.6; O2SAT 93
--- NOTE | 2022-02-16 17:34 | PC.NURSE ---
Urine output from ag yellow with pink tinge. Small amount of blood clots noted. VS stable and swelling decreased in bilateral lower extremities. IV antibiotic given. Pt remained on room air. No other complaints noted.
[2022-02-16 19:47] VITALS: BP 130/68; PULSE 76; RESP 16; TEMP 37.6; O2SAT 96
[2022-02-17 04:00] VITALS: BP 122/60; PULSE 80; RESP 16; TEMP 37.4; O2SAT 97
--- NOTE | 2022-02-17 04:34 | PC.NURSE ---
Patient a&o x4. Everett cath in place urine is yellow with some small blood clots noted. Edema is minimal to BLE. Patient tolerating RA with sats above 90%. Patient has been turned q2hrs. VSS. Urine cultures results are now negative. No other complaints noted.
[2022-02-17 05:52] VITALS: BMI 31.3
[2022-02-17 08:00] VITALS: BP 115/54; PULSE 74; RESP 18; TEMP 37.6; O2SAT 93
--- NOTE | 2022-02-17 08:28 | HMH.ACPN2 ---
Internal Medicine - PN: Subj *Date: 02/17/22 *Time: 08:28 Interval history: Patient states he is feeling better this morning. He slept well last night and ate all of his breakfast. He denies any pain. He states he has not noticed any more blood in his urine. He has run a low-grade fever. Exam Vital signs and Labs for Last 24 Hours: Temp Pulse Resp BP Pulse Ox 99.3 F 80 16 122/60 97 02/17/22 04:00 02/17/22 04:00 02/17/22 04:00 02/17/22 04:00 02/17/22 04:00 I & O for Last 24 hours: Intake & Output 02/14/22 02/15/22 02/16/22 02/17/22 11:59 11:59 11:59 11:59 Intake Total 340 / 340 720 / 720 Output Total 1500 / 1500 1810 / 1810 Balance -1160 / -1160 -1090 / -1090 Weight 206 lb 2.115 oz 211 lb 11.2 oz Microbiology Reports for the Last 24 Hours: Microbiology 02/15/22 20:19 Urine,Clean Catch Urine Culture - Preliminary NO GROWTH AFTER 24 HOURS - Constitutional no acute distress - *Routine Respiratory Exam Present: CTA bilaterally - *Routine Cardiovascular Exam Present: RRR - *Routine Abdominal Exam Present: soft, normoactive bowel sounds. Absent: tenderness - *Routine Extremities Exam Absent: cyanosis, clubbing, edema - *Routine Skin Exam Present: warm. Absent: rash - *Routine Neurological Exam Present: alert, oriented X3 Assessment and Plan (1) Pyelonephritis Status: Acute Category: Medical Code(s): N12 - Tubulo-interstitial nephritis, not specified as acute or chronic (2) Hematuria Status: Acute Category: Medical Code(s): R31.9 - Hematuria, unspecified (3) Chronic kidney disease Status: Chronic Category: Medical Code(s): N18.9 - Chronic kidney disease, unspecified (4) CAD (coronary artery disease) Status: Chronic Qualifiers: Coronary Disease-Associated Artery/Lesion type: [place] artery [place] vs. transplanted heart: [place] heart Associated angina: with other forms of angina Qualified Code(s): I25.118 - Atherosclerotic heart disease of [place] coronary artery with other forms of angina pectoris Category: Medical Code(s): I25.10 - Atherosclerotic heart disease of [place] coronary artery without angina pectoris (5) HLD (hyperlipidemia) Status: Chronic Qualifiers: Hyperlipidemia type: mixed hyperlipidemia Qualified Code(s): E78.2 - Mixed hyperlipidemia Category: Medical Code(s): E78.5 - Hyperlipidemia, unspecified (6) HTN (hypertension) Status: Chronic Qualifiers: Hypertension type: essential hypertension Qualified Code(s): I10 - Essential (primary) hypertension Category: Medical Code(s): I10 - Essential (primary) hypertension (7) History of prostate cancer Status: Chronic Category: Medical Code(s): Z85.46 - Personal history of malignant neoplasm of prostate (8) CAPO (obstructive sleep apnea) Status: Chronic Category: Medical Code(s): G47.33 - Obstructive sleep apnea (adult) (pediatric) - Assessment and plan all Dx Assessment and Plan for all problems:: Blood cultures are still pending. Preliminary urine culture shows no growth at 24 hours.
--- NOTE | 2022-02-17 09:26 | PC.NURSE ---
called pt contact to inform them of impending discharge. no answer. left message with call back number and stated pt would be d/c today
--- NOTE | 2022-02-17 09:45 | HMH.PHAINT ---
DISCHARGE MEDICATION COUNSELING PROVIDED. DISCUSSED THE SHORT-COURSE CEFDINIR THERAPY. DISCUSSED TO TAKE TWICE DAILY, RECOMMENDED WITH FOOD TO REDUCE UPSET STOMACH, MAY CONSIDER YOGURT WITH ACTIVE CULTURES OR PROBIOTIC TO REDUCE CHANCE OF DIARRHEA. PATIENT VERBALIZED NO QUESTIONS AT THIS TIME.
--- NOTE | 2022-02-17 09:47 | PC.NURSE ---
spoke with pt daughter who said she would come get pt from [place]
--- NOTE | 2022-02-17 22:38 | HMH.DCSUM ---
General - General Admission date:: 02/16/22 Discharge date: 02/17/22 HPI HPI: Patient is an 82-year-old gentleman past medical history of prostate cancer status post surgical intervention (May 2021) presents emergency department for evaluation of inability to void. History is obtained by patient at bedside who states that he has not been able to void since approximately 0500 this morning. He has had similar problems before requiring in and out catheterization. Per chart review patient also has a urethral stricture and intermittent hematuria. Patient has had some difficulty walking over the last 2 weeks however he attributes this to his legs being heavy, he was recently initiated on a water pill . When necessary patient is able to ambulate with assistance of a walker which is consistent with his baseline. He denies saddle anesthesia. Denies other acute complaints at this time. Patient is not currently on chemotherapy. In summary this is an 82-year-old male with past medical history of prostate cancer status postsurgical intervention not currently on chemotherapy presents emergency department for evaluation of inability to void. Patient is hemodynamically stable, tachycardic, febrile upon arrival temperature greater than 102 ?F. Differential diagnosis includes urinary tract infection, pyelonephritis, worsening malignancy, among others. Catheter was placed at bedside by nursing. Work-up will be conducted including hematologic labs, urinalysis with culture, blood cultures. Initial interventions include ceftriaxone. Work-up was reviewed by me, patient has evidence of CKD. Urinalysis shows active infection with proteinuria concerning for pyelonephritis. CT imaging is nonactionable. Case was discussed with internal medicine they will admit the patient their service for continued evaluation at this time. (above as per ER physician) Hospital Course Hospital Course: The oatient was started on Rocephin pending his urine cultures. By 02/17/2022 he was feeling much better. He was sleeping and eating well. He denied any pain. He had not noticed any more blood in his urine. His fever improved and was only low-grade. His blood cultures are still pending and his preliminary urine showed no growth at 24 hours. Clinically he was stable and was discharged home with urology follow-up with Dr. Schilling on Sunday. His catheter remained in place. Objective Vital signs: Temp Pulse Resp BP Pulse Ox 99.6 F 74 18 115/54 L 93 L 02/17/22 08:00 02/17/22 08:00 02/17/22 08:00 02/17/22 08:00 02/17/22 08:00 Narrative: - Constitutional no acute distress - *Routine HEENT Exam Head: Present: normocephalic Eye: Present: EOMI, PERRL ENT: Present: mucous membranes moist - *Routine Neck Exam Present: supple. Absent: lymphadenopathy - *Routine Respiratory Exam Present: CTA bilaterally - *Routine Cardiovascular Exam Present: RRR - *Routine Abdominal Exam Present: soft, normoactive bowel sounds. Absent: tenderness - *Routine Rectal Exam Rectal:: deferred - *Routine Genitalia Exam Genitalia:: deferred - *Routine Extremities Exam Present: edema. Absent: cyanosis, clubbing - *Routine Skin Exam Present: warm. Absent: rash - *Routine Neurological Exam Present: alert, oriented X3 Results Labs on day of discharge: Preliminary micro results at discharge 02/15/22 20:26 Blood Culture - Preliminary Blood NO GROWTH AFTER 48 HOURS 02/15/22 20:26 Blood Culture - Preliminary Blood NO GROWTH AFTER 48 HOURS DS: Diagnosis - Discharge Diagnosis (1) Pyelonephritis Status: Acute (2) Hematuria Status: Acute (3) Chronic kidney disease Status: Chronic (4) CAD (coronary artery disease) Status: Chronic (5) HLD (hyperlipidemia) Status: Chronic (6) HTN (hypertension) Status: Chronic (7) History of prostate cancer Status: Chronic (8) CAPO (obstructive sleep a
== END 2022-02-17 10:50 | disposition home or self-care (01) ==
LOC: ER 20:44 → 2ND 23:37
PROVIDERS: Admitting Provider Family Medicine; Emergency Provider Emergency Medicine; PCP Family Medicine; Visit Provider Family Medicine
DX: N39.0 Urinary tract infection, site not specified (principal); N12 Tubulo-interstitial nephritis, not specified as acute or chronic; I25.118 Atherosclerotic heart disease of native coronary artery with other forms of angina pectoris; E78.5 Hyperlipidemia, unspecified; N18.9 Chronic kidney disease, unspecified; I12.0 Hypertensive chronic kidney disease with stage 5 chronic kidney disease or end stage renal disease; C61 Malignant neoplasm of prostate; N35.919 Unspecified urethral stricture, male, unspecified site; N31.9 Neuromuscular dysfunction of bladder, unspecified; Z20.822 Contact with and (suspected) exposure to COVID-19
CPT/HCPCS: G0378; 36415; 51702; 73560; 74176; 80048; 80053; 81001; 83605; 83615; 85025; 86140; 87040; 87081; 87086; 99285; C9803; J0696; U0003; U0005

== ENCOUNTER 2022-02-22 09:36 | Observation (INO) | payer MEDICARE, SELFPAY ==
[2022-02-22] VITALS (15 sets, daily range): BP systolic 93–148; BP diastolic 51–82; PULSE 51–87; RESP 16–18; TEMP 36.4–37; O2SAT 92–100; BMI 27.1; BMI 30.6
--- NOTE | 2022-02-22 09:37 | HMH.EDGENADL ---
ED Disposition Clinical Impression: Ulcer Failure to thrive Qualifiers: Failure to thrive age range: in adult Qualified Code(s): R62.7 - Adult failure to thrive Disposition: Admitted as Observation Condition on Discharge: Good - Critical Care Critical Care Time: No Attestation: On , the high probability of a clinically significant, sudden or life threatening deterioration of the following system(s) required my full and direct attention, intervention and personal management. The time I documented below is in addition to time spent performing reported procedures but includes the following listed in this critical care notation. Medical Decision Making - Rudolph Inquiry Pt receiving controlled substance: No Rudolph was queried for this patient: No Vital Signs: 02/22/22 09:41 02/22/22 10:00 02/22/22 11:03 Temperature 98.6 F Temperature Source Oral Pulse Rate 80 80 Pulse Rate [Left Radial] 51 L Respiratory Rate 16 Blood Pressure 115/69 93/60 L Blood Pressure [Right Arm] 105/51 L Blood Pressure Mean 76 71 Blood Pressure Mean [Right Arm] 69 02 Sat by Pulse Oximetry 96 98 98 Oxygen Delivery Method Room Air 02/22/22 11:31 02/22/22 12:00 02/22/22 12:31 Temperature Temperature Source Pulse Rate 86 79 62 Pulse Rate [Left Radial] Respiratory Rate 18 18 18 Blood Pressure 121/57 L 116/74 117/65 Blood Pressure [Right Arm] Blood Pressure Mean 78 86 82 Blood Pressure Mean [Right Arm] 02 Sat by Pulse Oximetry 98 98 98 Oxygen Delivery Method 02/22/22 13:01 02/22/22 13:31 02/22/22 14:00 Temperature Temperature Source Pulse Rate 77 56 L 82 Pulse Rate [Left Radial] Respiratory Rate 18 18 18 Blood Pressure 131/74 117/67 138/79 Blood Pressure [Right Arm] Blood Pressure Mean 93 83 98 Blood Pressure Mean [Right Arm] 02 Sat by Pulse Oximetry 100 99 96 Oxygen Delivery Method 02/22/22 14:31 02/22/22 15:01 02/22/22 15:30 Temperature Temperature Source Pulse Rate 71 81 86 Pulse Rate [Left Radial] Respiratory Rate 18 18 18 Blood Pressure 146/70 H 142/76 H 136/72 Blood Pressure [Right Arm] Blood Pressure Mean 95 87 82 Blood Pressure Mean [Right Arm] 02 Sat by Pulse Oximetry 100 100 96 Oxygen Delivery Method 02/22/22 15:45 Temperature 98.6 F Temperature Source Oral Pulse Rate 87 Pulse Rate [Left Radial] Respiratory Rate 18 Blood Pressure 130/77 Blood Pressure [Right Arm] Blood Pressure Mean Blood Pressure Mean [Right Arm] 02 Sat by Pulse Oximetry Oxygen Delivery Method Room Air - Lab Data Lab Results 02/22/22 10:55: WBC 9.3, RBC 4.24 L, Hgb 11.4 L, Hct 36.1 L, MCV 85.0, MCH 26.8 L, MCHC 31.5 L, RDW 15.4, Plt Count 415, MPV 8.4, Neut % (Auto) 72.5, Lymph % (Auto) 14.5, [place] % (Auto) 7.3, Eos % (Auto) 4.1, Baso % (Auto) 1.5, Neut # (Auto) 6.8, Lymph # (Auto) 1.4, [place] # (Auto) 0.7, Eos # (Auto) 0.4, Baso # (Auto) 0.1 02/22/22 10:55: Sodium 137, Potassium 3.9, Chloride 108 H, Carbon Dioxide 21 L, Anion Gap 11.9, BUN 59 H, Creatinine 2.40 H, Estimated Creat Clear 29, Estimated GFR 26 L, Est GFR ( Amer) 31 L, Glucose 134 H, Calcium 9.5, Magnesium 2.4 H, Total Bilirubin 0.2, AST 69 H, ALT 36, Alkaline Phosphatase 100, Total Protein 7.2, Albumin 3.7, Globulin 3.5 H, Albumin/Globulin Ratio 1.1 02/22/22 14:30: SARS-CoV-2 (PCR) Not detected, Influenza A Untype (PCR) Not detected, Influenza Type B (PCR) Not detected Result diagrams: 02/22/22 10:55 02/22/22 10:55 Orders (Tests/Meds): ED MEDICATIONS Generic Name Dose Route Start Last Admin Trade Name Freq PRN Reason Stop Dose Admin Acetaminophen 650 mg 02/22/22 16:11 Acetaminophen 325mg Tab PO 03/24/22 14:20 Q4HP PRN Fever or Mild Pain Pt Own Med * 1 each 02/23/22 09:00 Amlodipine 5 Mg Tab* PO 03/25/22 08:59 DAILY JENNIFER Pt Own Med * 1 each 02/23/22 09:00 Atorvastatin 40 Mg PO 03/25/22 08:59 Tab* DAILY JENNIFER Pt Own Med * 1 tab 02/23/
--- NOTE | 2022-02-22 09:38 | PC.NURSE ---
Talked to Goldie in CM, pt states that he was told by yesterday that he needs to come to the hospital for placement to [place]. Goldie states that she will fu on this and return call with further information. PT has no complaints at this time.
--- NOTE | 2022-02-22 09:41 | PC.NURSE ---
Miriam in CM states that pt called the family doctor yesterday stating that pt was unable to walk or do things for his self, was told to call Larry Hayes, according to CM pt did not have a PT/OT evaluation when he was admitted last week so larry hayes was unable to admit pt. CM recommended that we place a order for PT/OT for pt and they will be able to further assist. MD viera
--- NOTE | 2022-02-22 09:49 | PC.NURSE ---
PT contacted for evaluation for pt, states they will be to see pt
--- NOTE | 2022-02-22 10:04 | PC.NURSE ---
PT her for PT/OT evaluation
--- NOTE | 2022-02-22 10:10 | PC.NURSE ---
OT and PT staff at for evaluation
--- NOTE | 2022-02-22 10:30 | PC.NURSE ---
PT/OT gave verbal report to ER MD of their assessment
--- NOTE | 2022-02-22 10:38 | PC.NURSE ---
pt bed linens changed and pt provided with hygiene care. pt placed in a gown and given a warm blanket. arrived at the bedside.
--- NOTE | 2022-02-22 10:41 | PC.NURSE ---
lab called for blood collection
--- NOTE | 2022-02-22 11:02 | PC.NURSE ---
lab staff at the bedside for blood collection
[2022-02-22 11:07] LABS: Basophils # 0.1 K/mm3 (0-0.2); Basophils % 1.5 % (0.1-2.0); Eosinophils # 0.4 K/mm3 (0.0-0.4); Eosinophils % 4.1 % (0.1-12.0); Hematocrit 36.1 % (42.0-52.0); Hemoglobin 11.4 g/dL (14.1-18.0); Lymphocytes # 1.4 K/mm3 (0.7-4.5); Lymphocytes % 14.5 % (10-50); Mean Corpuscular HGB Conc 31.5 g/dL (31.8-35.4); Mean Corpuscular Hemoglobin 26.8 pg (27.0-31.2); Mean Platelet Volume 8.4 fl (7.4-10.4); Monocytes # 0.7 K/mm3 (0.1-1.0); Monocytes % 7.3 % (1.7-9.3); Neutrophils # 6.8 K/mm3 (1.8-7.8); Neutrophils % 72.5 % (37.0-80.0); Platelet Count 415 K/mm3 (142-424); Red Blood Count 4.24 M/mm3 (4.60-6.20); Red Cell Distribution Width 15.4 % (11.5-17.5); White Blood Count 9.3 K/mm3 (4.8-10.8)
--- NOTE | 2022-02-22 11:11 | HMH.OTEV ---
OT Inpatient Evaluation Rehab OT IP Evaluation Start: 02/22/22 09:46 Freq: ONCE Status: Complete Protocol: [facility]/22/22 10:32 [facility]Rec: 02/22/22 11:10 [facility] [id number]) Rehab OT IP Assessment Subjective History Pt oriented x 4 on arrival. Pt agreeable to engage in OT evaluation. Pt presents today (02/22/22) to the ER requesting placement to [place]. Pt reports ~1 week ago his functional ability abruptlt changed. He became unable to walk or complete ADL activities independently. He explains he began a new medication for fluid control and since then he has experienced global weakness and decreased function. Prior to 1 week ago, he claims he was living with his and was independent with all ADLs (dressing, bathing, and feeding). He also reports he was walking with a walker. He has been dependent upon to complete all IADLs. was not present during evaluation. Pt also complains of inability to control bowel movements. The following information was copied from ER report: Patient is an 82-year-old male who presents for need for placement. He says that he recently changed insurance and he is requesting transfer to [place]. He says that his primary care doctor told him to come here for placement. He denies any chest or abdominal pain. Denies any complaints in general. Says that he does have a chronic indwelling catheter that was changed last week. No recent illnesses. Subjective I don't know what happened to me. Pt
--- NOTE | 2022-02-22 11:17 | PC.NURSE ---
care management manager of case at the bedside to speak to family and pt
[2022-02-22 11:22] LABS: Alanine Aminotransferase 36 U/L (12-78); Albumin Level 3.7 g/dl (3.5-5.0); Albumin/Globulin Ratio 1.1 (1.1-1.8); Alkaline Phosphatase 100 U/L (38-126); Anion Gap 11.9 mEq/L (5-15); Aspartate Amino Transferase 69 U/L (17-59); Bilirubin,Total 0.2 mg/dl (0.2-1.3); Blood Urea Nitrogen 59 mg/dl (9-20); Calcium 9.5 mg/dl (8.4-10.2); Carbon Dioxide 21 mmol/L (22.0-30.0); Chloride 108 mmol/L (98-107); Creatinine Clearance Estimated 29 mL/min (50-200); Estimated Glomerular Filt Rate 26 ml/min (>60); GFR (African American) 31 ML/MIN (>60); Globulin 3.5 g/dL (1.3-3.2); Glucose 134 mg/dl (74-100); Magnesium 2.4 mg/dl (1.6-2.3); Potassium 3.9 mmoL/L (3.5-5.1); Sodium 137 mmol/L (136-145); Total Protein,Serum 7.2 g/dl (6.3-8.2)
--- NOTE | 2022-02-22 11:32 | HMH.PTEV ---
Physical Therapy Evaluation Rehab PT IP Evaluation Start: 02/22/22 09:46 Freq: ONCE Status: Active Protocol: Document 02/22/22 11:26 [facility]OE[facility] (Rec: 02/22/22 11:32 [facility] [id number]) Subjective/History History History Patient is an 82-year-old male who presents for need for placement. He says that he recently changed insurance and he is requesting transfer to [place]. He says that his primary care doctor told him to come here for placement. He denies any chest or abdominal pain. Denies any complaints in general. Says that he does have a chronic indwelling catheter that was changed last week. No recent illnesses. Subjective Subjective Pt reports to Therapy that ~ 5 days ago he started getting weak and was unable to ambulate I as before. When asked if pt had changed anything prior to weakness pt reported his PCP had changed his fluid pill about a week ago . Pt states he began getting weak after that, passing blood in urine and chronic diarrhea. Rehab PT IP Eval Objective Appearance Patient Behavior Appropriate,Cooperative, Passive Patient Orientation Place,Name,Birthday,Year Difficulty following instructions mild Speech Pattern Appropriate Ambulation Patient Able to Ambulate No Balance Ability to Arise Unable Sitting Balance Leans or slides in chair Standing Balance Unsteady Dynamic Sitting Balance Ability Zero Dynamic Standing Balance Ability Zero Transfers Bed Transfer Ability Maximum x 2 (75% assist) Sit to Stand Bed Transfer Ability Maximum x 2 (75% assist) ROM All Extremities PT ROM Status WFL Abnormal ROM Comment rigidity noted in all - hands remained clenched MMT All Extremities Abnormal MMT Grade 3-/5 in all extremities w/ rigidity Rehab PT IP prob,goals,plan Problems Date of Evaluation: 02/22/22 PT IP Problems Bed Mobility,Transfer
--- NOTE | 2022-02-22 11:33 | PC.NURSE ---
provided hygiene and bed change
--- NOTE | 2022-02-22 11:37 | SW/DCPLANNER ---
Addendum entered by [facility] 02/23/22 14:10: This patient has been approved via insurance to discharge to [facility] today. [facility]/ [facility] stated that patient does not require an additional COVID swab. Patient will discharge today and is agreeable for to transport. Addendum entered by [facility] 02/23/22 09:18: Per [facility]/ [facility] precert has been started on this patient. I will continue to follow up w/: MD, patient/family and [facility]. Addendum entered by [facility] 02/23/22 08:12: Patient has stated that he is only interested in short term placement. I have updated [facility]/ [facility]. Addendum entered by Laine De Jesus RN 02/22/22 16:19: [facility] unable to offer a bed to patient at this time. Discussed with family and faxed referral to [facility], [facility], and [facility]. TATYANA Alcazar Addendum entered by [facility] 02/22/22 13:10: I am currently waiting to hear back from Raissa at [facility]. Original Note: Patient is interested in placement at [facility]. PT/OT evaluation has been completed and faxed to [facility].
--- NOTE | 2022-02-22 12:14 | PC.NURSE ---
rounded on pt and updated we are awaiting an update from care management. no needs voiced
--- NOTE | 2022-02-22 12:32 | PC.WOUNDNOTE ---
rounded on pt, no needs at this time, family at bs
--- NOTE | 2022-02-22 13:14 | PC.NURSE ---
called care management for update. states she will call back
--- NOTE | 2022-02-22 13:25 | PC.NURSE ---
called care management for an update, spoke with Goldie dawson per Miriam Hayes is still looking over pts records. updated ER MD
--- NOTE | 2022-02-22 13:45 | PC.NURSE ---
Addendum entered by Sarai Steen RN 02/22/22 13:46: pt resting in bed at this time, states no needs Original Note: updated pt/ at this time, waiting to hear back from lrary greenwood still per care management
--- NOTE | 2022-02-22 14:30 | PC.NURSE ---
rounded on pt at this time, at BS, pt resting in bed. Updated them that ER MD is working on admission. Pt and verbalized understanding stated no needs at this time.
--- NOTE | 2022-02-22 14:31 | PC.NURSE ---
spoke with dr butts who has agreed to admit. jarod in care management contacted for admission. covid swab sent to the lab. awaiting bed assignment.
--- NOTE | 2022-02-22 14:42 | HMH.PHAINT ---
MEDICATION RECONCILIATION COMPLETED ON PATIENT USING EXTERNAL FILL HISTORY FROM PHARMACY AND PATIENT DISCHARGE SUMMARY FROM PREVIOUS ADMISSION. -NEHEMIAS GRANDED
[2022-02-22 14:58] LABS: Coronavirus 19, PCR Not Detected (NotDetected); Influenza A, PCR Not Detected (NotDetected); Influenza B, PCR Not Detected (NotDetected)
--- NOTE | 2022-02-22 15:15 | PC.NURSE ---
called report to fabian rios rn
--- NOTE | 2022-02-22 15:40 | PC.NURSE ---
called lab to check the status of covid swab. lab states it will be resulting
--- NOTE | 2022-02-22 15:42 | PC.NURSE ---
pt to med/surg vis stretcher at this time
--- NOTE | 2022-02-22 17:11 | HMH.HP ---
*Admission Date: 02/22/22 *Chief complaint: Weakness, inability to ambulate *History of present illness: 82-year-old white male with progressive debility, recent urinary tract infection with recent bladder dyskinesis and need for Everett catheter placement along with increasing problems ambulating. Brought to the emergency department today because of lack of ability to ambulate. Work-up revealed fairly normal labs, but had sediment and blood in his urine from Everett bag, and was unable to ambulate under his own power. Also had stage I decubitus ulcer-home acquired. Given his 's frailty and extremely high risk of falls at home we admitted him to observation for further evaluation, observation overnight and transfer to long-term care facility to meet his needs when able. [facility] History I have reviewed the patient's past medical history: Yes Medical History: Reports:: BPH, Cancer (prostate), Congestive Heart Failure, Coronary Artery Disease, Hyperlipidemia, Hypertension, Kidney Stones, Myocardial Infarction, Renal Disease, Renal Insufficiency, Urinary Tract Infection Denies:: Diabetes Mellitus Type 1, Diabetes Mellitus Type 2, Internal Pacemaker, MRSA, Seizures *Have you ever received a pneumonia vaccine?: Yes *Have you received a flu vaccine this season?: Yes Other Medical History: Reports: Arthritis. Denies: Blood Transfusion Reaction Other Surgeries: Yes: No Previous Surgery, CABG, Cancer Surgery, Cardiac Catheterization, Colonoscopy, Coronary Stent, Other. No: Pacemaker Amputation: No Fractures: No - *Social History Last grade of school completed: High school graduate Smoking Status: Former smoker Tobacco Type: cigarettes # Packs/Day (cigarettes): 6 Alcohol Intake: never Alcohol Intake Frequency:: a few times a week Substance Use Type: denies use *Occupational Status:: disabled Housing: house Household Members: spouse *Travel in the last 8 weeks: None Family Hx:: No significant family history Review of Systems - Review of Systems Review of systems:: pertinent systems reviewed and negative unless documented below Meds Home Medications Medication Instructions Recorded Confirmed Type Amlodipine Besylate [Norvasc 5mg 5 mg PO DAILY 08/06/17 02/22/22 History tablet] carvediloL [Carvedilol 25mg Tab] 25 mg PO BIDWMEAL 08/06/17 02/22/22 History mycophenolate mofetiL [Cellcept] 250 mg PO BID 08/06/17 02/22/22 History furosemide 40 mg tablet 40 mg PO BID 02/27/20 02/22/22 History lisinopril 20 1 tab PO DAILY tab 12/10/20 02/22/22 History mg-hydrochlorothiazide 12.5 mg tablet potassium chloride 10 mEq 20 meq PO DAILY cap 12/10/20 02/22/22 History capsule,extended release Atorvastatin Calcium [Lipitor 40mg 40 mg PO DAILY 01/31/21 02/22/22 History Tab] Aspirin [Low Dose Aspirin EC] 81 mg PO DAILY 12/12/21 02/22/22 History Mirabegron [Myrbetriq] 50 mg PO DAILY 12/12/21 02/22/22 History Oxybutynin Chloride [Oxybutynin 10 mg PO DAILY 02/15/22 02/22/22 History Chloride ER] nitrofurantoin macrocrystaL 50 mg PO DAILY 02/22/22 02/22/22 History [Nitrofurantoin] Allergies Allergy/AdvReac Type Severity Reaction Status Date / Time No Known Allergies Allergy Verified 02/22/22 09:47 Exam Vital signs and Labs for Last 24 Hours: Temp Pulse Resp BP Pulse Ox 98.3 F 80 17 148/82 H 92 L 02/22/22 16:00 02/22/22 16:00 02/22/22 16:00 02/22/22 16:00 02/22/22 16:00 Laboratory Results - last 24 hr 02/22/22 10:55: WBC 9.3, RBC 4.24 L, Hgb 11.4 L, Hct 36.1 L, MCV 85.0, MCH 26.8 L, MCHC 31.5 L, RDW 15.4, Plt Count 415, MPV 8.4, Neut % (Auto) 72.5, Lymph % (Auto) 14.5, [place] % (Auto) 7.3, Eos % (Auto) 4.1, Baso % (Auto) 1.5, Neut # (Auto) 6.8, Lymph # (Auto) 1.4, [place] # (Auto) 0.7, Eos # (Auto) 0.4, Baso # (Auto) 0.1 02/22/22 10:55: Sodium 137, Potassium 3.9, Chloride 108 H, Carbon Dioxide 21 L, Anion Gap 11.9, BUN 59 H, Creatinine 2.40 H, Estimated Creat Clear 29, Estimated GFR 26 L, Est GFR (Afric
--- NOTE | 2022-02-22 18:22 | PC.NURSE ---
Pt came up to floor and stated that he is unable to feed him self, ambulate. He stated that this is normal for him. He is A/Ox4. He came in with a ag cath from home.
[2022-02-23] VITALS: BP 103/52; PULSE 95; RESP 18; TEMP 37.1; O2SAT 93
[2022-02-23 04:00] VITALS: BP 99/67; PULSE 91; RESP 18; TEMP 37.1; O2SAT 97
--- NOTE | 2022-02-23 04:58 | PC.NURSE ---
Patient is a&ox4. Patient tolerates room air well. Patient states he cannot help roll nor lift his drink/meds to mouth, However after encouragement patient able to help staff roll and take medications independently. Everett cath in place draining clear yellow urine. CRE culture sent to lab. Patient is awaiting placement for long term. No complaints noted at this time.
[2022-02-23 05:05] VITALS: BMI 29.7
--- NOTE | 2022-02-23 07:11 | P.CONPHA_ITS ---
[facility] Pharmacy VTE Monitoring - Patient Demographics Admission date: 02/22/22 Report Date: 02/23/22 Time: 07:11 Allergies/Adverse Reactions: Patient Allergies No Known Allergies Allergy (Verified 02/22/22 09:47) Height: 1.75 m Weight: 91.257 kg Patient Problems: Current Active Problems Urinary retention (Acute) Chronic kidney disease (Chronic) Failure to thrive (Acute) Ulcer (Acute) Decubitus ulcer (Acute) Ataxia (Acute) History of prostate cancer (Chronic) - VTE Risk Labs: VTE Related Lab Results Hgb 11.4 g/dL (14.1-18.0) L 02/22/22 10:55 Hct 36.1 % (42.0-52.0) L 02/22/22 10:55 Plt Count 415 K/mm3 (142-424) 02/22/22 10:55 BUN 59 mg/dl (9-20) H 02/22/22 10:55 Creatinine 2.40 mg/dl (0.66-1.25) H 02/22/22 10:55 Estimated Creat Clear 29 mL/min (50-200) 02/22/22 10:55 VTE Score: 3 VTE Risk Level: Low Risk - Prophylaxis VTE Prophylaxis Ordered?: Yes Types of VTE Prophylaxis: TEDS Knee High Location of Applied Device: Bilateral Lower Extremeties
--- NOTE | 2022-02-23 07:50 | HMH.ACPN2 ---
Internal Medicine - PN: Subj *Date: 02/23/22 *Time: 07:50 Interval history: Patient rested well overnight. No complaints except for leg pain. Everett catheter remains in place. He is pleasant and talkative this morning. Exam Vital signs and Labs for Last 24 Hours: Temp Pulse Resp BP Pulse Ox 98.8 F 91 H 18 99/67 L 97 02/23/22 04:00 02/23/22 04:00 02/23/22 04:00 02/23/22 04:00 02/23/22 04:00 Laboratory Results - last 24 hr 02/22/22 10:55: WBC 9.3, RBC 4.24 L, Hgb 11.4 L, Hct 36.1 L, MCV 85.0, MCH 26.8 L, MCHC 31.5 L, RDW 15.4, Plt Count 415, MPV 8.4, Neut % (Auto) 72.5, Lymph % (Auto) 14.5, [place] % (Auto) 7.3, Eos % (Auto) 4.1, Baso % (Auto) 1.5, Neut # (Auto) 6.8, Lymph # (Auto) 1.4, [place] # (Auto) 0.7, Eos # (Auto) 0.4, Baso # (Auto) 0.1 02/22/22 10:55: Sodium 137, Potassium 3.9, Chloride 108 H, Carbon Dioxide 21 L, Anion Gap 11.9, BUN 59 H, Creatinine 2.40 H, Estimated Creat Clear 29, Estimated GFR 26 L, Est GFR ( Amer) 31 L, Glucose 134 H, Calcium 9.5, Magnesium 2.4 H, Total Bilirubin 0.2, AST 69 H, ALT 36, Alkaline Phosphatase 100, Total Protein 7.2, Albumin 3.7, Globulin 3.5 H, Albumin/Globulin Ratio 1.1 02/22/22 14:30: SARS-CoV-2 (PCR) Not detected, Influenza A Untype (PCR) Not detected, Influenza Type B (PCR) Not detected I & O for Last 24 hours: Intake & Output 02/20/22 02/21/22 02/22/22 02/23/22 11:59 11:59 11:59 11:59 Intake Total 360 / 360 Output Total 1375 / 1375 Balance -1015 / -1015 Weight 200 lb 201 lb 3 oz Narrative: Patient is alert. Everett catheter is draining much clearer urine than yesterday. Lungs have good air movement, scattered rhonchi, heart rate regular with previously noted holosystolic murmur. Abdomen soft. Decubitus ulcer per picture exam per nurses. Assessment and Plan (1) Decubitus ulcer Status: Acute Category: Medical Code(s): L89.90 - Pressure ulcer of unspecified site, unspecified stage (2) Ataxia Status: Acute Category: Medical Code(s): R27.0 - Ataxia, unspecified (3) Failure to thrive Status: Acute Qualifiers: Failure to thrive age range: in adult Qualified Code(s): R62.7 - Adult failure to thrive Category: Medical (4) Urinary retention Status: Acute Category: Medical Code(s): R33.9 - Retention of urine, unspecified (5) Chronic kidney disease Status: Chronic Category: Medical Code(s): N18.9 - Chronic kidney disease, unspecified (6) History of prostate cancer Status: Chronic Category: Medical Code(s): Z85.46 - Personal history of malignant neoplasm of prostate - Assessment and plan all Dx Assessment and Plan for all problems:: Patient pending long-term care placement. PT/OT evaluation today.
[2022-02-23 08:00] VITALS: BP 113/61; PULSE 56; RESP 22; TEMP 37; O2SAT 96
[2022-02-23 10:10] VITALS: BMI 29.7
[2022-02-23 12:00] VITALS: BP 124/50; PULSE 51; RESP 22; TEMP 36.8; O2SAT 100
--- NOTE | 2022-02-23 14:03 | HMH.DCSUM ---
General - General Admission date:: 02/22/22 Discharge date: 02/23/22 HPI HPI: 82-year-old white male with progressive debility, recent urinary tract infection with recent bladder dyskinesis and need for Everett catheter placement along with increasing problems ambulating. Brought to the emergency department today because of lack of ability to ambulate. Work-up revealed fairly normal labs, but had sediment and blood in his urine from Everett bag, and was unable to ambulate under his own power. Also had stage I decubitus ulcer-home acquired. Given his 's frailty and extremely high risk of falls at home we admitted him to observation for further evaluation, observation overnight and transfer to long-term care facility to meet his needs when able. Hospital Course Hospital Course: Patient was admitted, decubitus ulcer was addressed by physical therapy and nursing care was started. Patient's indwelling Everett catheter was continued because of his history of urinary retention and his need for wound care and to keep the wound dry and free of body fluids. PT/OT evaluation was done and notes are reviewed. A bed was found for patient at [facility] in [place] he will be transferred there today. Please note he will need PT/OT evaluation, speech therapy evaluation, dietary evaluation for high-protein diet to help with wound care as well as wound care evaluation. Please note patient has a urology appointment scheduled at [facility] outpatient clinic with Dr. Catarino Schilling. This appointment will need to be kept to see if patient can be rid of his Everett catheter Objective Vital signs: Temp Pulse Resp BP Pulse Ox 98.3 F 51 L 22 124/50 L 100 02/23/22 12:00 02/23/22 12:00 02/23/22 12:00 02/23/22 12:02/23/22 12:00 no acute distress, chronically ill appearing, disheveled - *Routine HEENT Exam Head: Present: normocephalic Eye: Present: EOMI, PERRL ENT: Present: mucous membranes moist - *Routine Neck Exam Present: supple - *Routine Respiratory Exam Present: CTA bilaterally - *Routine Cardiovascular Exam Present: RRR, murmur - *Routine Abdominal Exam Present: soft, normoactive bowel sounds. Absent: tenderness - *Routine Exam Comments: Everett catheter in good position. Draining clear yellow urine - *Routine Extremities Exam Absent: cyanosis, clubbing, edema Comments: Patient is globally weak but no focal deficits. Scattered bruising on his extremities. Please see nursing pictures in regards to his stage I sacral decubitus - *Routine Skin Exam Present: warm. Absent: rash - Detailed Eye Exam Eyelids: Bilateral normal inspection Results Labs on day of discharge: Labs from last 24 hours 02/22/22 14:30 SARS-CoV-2 (PCR) Not detected Influenza A Untype (PCR) Not detected Influenza Type B (PCR) Not detected DS: Diagnosis - Discharge Diagnosis (1) Decubitus ulcer Status: Acute (2) Ataxia Status: Acute (3) Failure to thrive Status: Acute (4) Urinary retention Status: Acute (5) Chronic kidney disease Status: Chronic (6) History of prostate cancer Status: Chronic Discharge Plan - Patient Discharge Instructions ACTIVITY: Continue current activity DIET: continue same diet - Follow up Plan Disposition: [facility] Condition at discharge:: Stable Home Medications: Home Medications Medication Instructions Recorded Confirmed Type Amlodipine Besylate [Norvasc 5mg 5 mg PO DAILY 08/06/17 02/22/22 History tablet] carvediloL [Carvedilol 25mg Tab] 25 mg PO BIDWMEAL 08/06/17 02/22/22 History mycophenolate mofetiL [Cellcept] 250 mg PO BID 08/06/17 02/22/22 History furosemide 40 mg tablet 40 mg PO BID 02/27/20 02/22/22 History lisinopril 20 1 tab PO DAILY tab 12/10/20 02/22/22 History mg-hydrochlorothiazide 12.5 mg tablet potassium chloride 10 mEq 20 meq PO DAILY cap 12/10/20
--- NOTE | 2022-02-23 16:38 | PC.NURSE ---
Pt is alert, oriented x 4. Speech clear. Has been up to bedside chair, transferred x 3 assist. Currently awaiting EMS for transport to [facility] in [place] for long-term rehab. F/C is patent and draining clear, yellow urine to bedside drainage bag. Pt has been pleasant and cooperative this shift. No c/o or s/sx of distress noted. Condition stable for transport.
--- NOTE | 2022-02-23 17:00 | PC.NURSE ---
1440-attempted to call report to [facility] in [place], no nurse was available to take report at that time. 1507-attempted to call report to [facility] in [place], spoke with Wesly who stated he would call back in a few minutes. 1536-report called to Wesly at [facility] in [place].
== END 2022-02-23 17:00 ==
LOC: ER 10:31 → 2ND 16:32
PROVIDERS: Admitting Provider Internal Medicine Adolescent Medicine; Emergency Provider Student in an Organized Health Care Education/Training Program; PCP Family Medicine; Visit Provider Internal Medicine Adolescent Medicine
DX: R62.7 Adult failure to thrive (principal); C61 Malignant neoplasm of prostate; I50.9 Heart failure, unspecified; E78.5 Hyperlipidemia, unspecified; Z87.891 Personal history of nicotine dependence; I25.10 Atherosclerotic heart disease of native coronary artery without angina pectoris; I25.2 Old myocardial infarction; N18.9 Chronic kidney disease, unspecified; Z95.1 Presence of aortocoronary bypass graft; Z95.5 Presence of coronary angioplasty implant and graft; R27.0 Ataxia, unspecified; R29.6 Repeated falls; Z79.899 Other long term (current) drug therapy; L89.91 Pressure ulcer of unspecified site, stage 1; Z20.822 Contact with and (suspected) exposure to COVID-19; I13.0 Hypertensive heart and chronic kidney disease with heart failure and stage 1 through stage 4 chronic kidney disease, or unspecified chronic kidney disease
CPT/HCPCS: G0378; 80053; 83735; 85025; 87081; 97530; 99285; C9803; U0003; U0005

== ENCOUNTER 2022-03-22 14:48 | Observation (INO) | payer MEDICARE, SELFPAY ==
[2022-03-22] VITALS (10 sets, daily range): BP systolic 84–128; BP diastolic 49–67; PULSE 74–88; RESP 16–22; TEMP 36.4–36.7; O2SAT 95–100; BMI 32.5; BMI 25.4
--- NOTE | 2022-03-22 15:08 | PC.NURSE ---
OLGA LIDIA Greer RN and Saba Arriaga RN went in to check on patient; they repositioned him to his right side and gave him a warm blanket; denies any other needs at this time;
[2022-03-22 15:17] LABS: Coronavirus 19, PCR Not Detected (NotDetected); Influenza A, PCR Not Detected (NotDetected); Influenza B, PCR Not Detected (NotDetected)
--- NOTE | 2022-03-22 15:36 | SW/DCPLANNER ---
Addendum entered by Miriam Finch 03/24/22 08:01: Per Kayla this patient has been accepted to [facility] level of care for today. Kayla stated that patient will NOT require an additional COVID swab prior to discharge. Addendum entered by Miriam Finch 03/23/22 11:29: Kayla Kebede has been on campus to evaluate this patient this AM. Kayla stated that she would need to speak with Administration at [facility] then would contact me back. Addendum entered by Miriam Finch 03/23/22 08:01: Kayla Kebede is currently reviewing patient information: no confirmed bed at this time. Patient information has also been faxed to [facility]. Original Note: I received a call from ED staff regarding discharge planning for this patient. Patient's stated that patient has a confirmed bed at [facility] level of care for tomorrow. Patient is agreeable to this plan. I have attempted to contact Kayla Kebede: no answer or call back at this time. Patient's daughter stated that patient is not safe at this time due to patient's being unable to care for patient at home. I will continue to get in contact with Kayla at [place].
--- NOTE | 2022-03-22 15:44 | ECG_ITS ---
APPROVED REPORT Exam: Resting ECG HR:78 bpm ECG Measurements Heart Rate 78 AXES QRSd 93 QRS 29 QT 386 T 88 QTc 420 Conclusion ATRIAL FIBRILLATION WITH ABERRANT CONDUCTION OR VENTRICULAR PREMATURE COMPLEXES ABNORMAL RHYTHM ECG UNCONFIRMED REPORT Electronically signed by : Rohan Dior MD 03/23/2022 11:24:07
[2022-03-22 15:51] LABS: Basophils # 0.1 K/mm3 (0-0.2); Basophils % 0.9 % (0.1-2.0); Eosinophils # 0.3 K/mm3 (0.0-0.4); Eosinophils % 4.4 % (0.1-12.0); Hematocrit 30.3 % (42.0-52.0); Hemoglobin 10.1 g/dL (14.1-18.0); Lymphocytes # 1.2 K/mm3 (0.7-4.5); Lymphocytes % 21.4 % (10-50); Mean Corpuscular HGB Conc 33.5 g/dL (31.8-35.4); Mean Corpuscular Hemoglobin 27.7 pg (27.0-31.2); Mean Corpuscular Volume 82.8 fl (80-94); Mean Platelet Volume 8.9 fl (7.4-10.4); Monocytes # 0.4 K/mm3 (0.1-1.0); Monocytes % 7.5 % (1.7-9.3); Neutrophils # 3.7 K/mm3 (1.8-7.8); Neutrophils % 65.9 % (37.0-80.0); Platelet Count 303 K/mm3 (142-424); Red Blood Count 3.65 M/mm3 (4.60-6.20); Red Cell Distribution Width 14.8 % (11.5-17.5); White Blood Count 5.6 K/mm3 (4.8-10.8)
[2022-03-22 16:06] LABS: Alanine Aminotransferase 18 U/L (12-78); Albumin Level 3.5 g/dl (3.5-5.0); Albumin/Globulin Ratio 1.1 (1.1-1.8); Alkaline Phosphatase 118 U/L (38-126); Anion Gap 13.7 mEq/L (5-15); Aspartate Amino Transferase 23 U/L (17-59); Bilirubin,Total 0.4 mg/dl (0.2-1.3); Calcium 9.3 mg/dl (8.4-10.2); Carbon Dioxide 22 mmol/L (22.0-30.0); Chloride 103 mmol/L (98-107); Creatinine Clearance Estimated 24 mL/min (50-200); Estimated Glomerular Filt Rate 17 ml/min (>60); GFR (African American) 20 ML/MIN (>60); Globulin 3.2 g/dL (1.3-3.2); Glucose 122 mg/dl (74-100); Potassium 3.7 mmoL/L (3.5-5.1); Sodium 135 mmol/L (136-145); Total Protein,Serum 6.7 g/dl (6.3-8.2)
[2022-03-22 16:47] LABS: Blood Urea Nitrogen 135 mg/dl (9-20)
--- NOTE | 2022-03-22 18:58 | HMH.EDGENADL ---
Discharge Plan Disposition Patient Disposition: Admitted As Inpatient Chief Complaint: Weakness Clinical Impressions Clinical Impression: Renal insufficiency, Acute uremia, Declining functional status Discharge ED Provider: Brian Metz General Adult HPI General Chief complaint: Weakness Stated complaint: weakness Time Seen by Provider: 03/22/22 15:15 Mode of Arrival: EMS Source of Information: Patient and EMS Limitations: No Limitations Description of Symptoms (Recalled from ER Triage Doc. by RN): per ems pt is awaiting placement at [facility], pt states that he is just lousey feeling, body aches and feeling soa. Feels like i am getting a cold . History of Present Illness HPI narrative: Patient is an 82-year-old male with past medical history of progressive debility, coronary artery disease, prior renal cancer status postsurgical resection with resultant CKD who presents emergency department as a transfer patient from clinic for progressive decline in activities of daily living. Patient states that over the last week he has had symptoms of cold with rhinorrhea, weakness. Otherwise no acute complaints at this time. However patient is unable to complete his activities of daily living over the last month where he was ambulatory with a walker now he is unable to ambulate, he has had bedsores develop over his sacral coccygeal region. Daughter is concerned that is unable to take care of him at home and it is not a safe living situation. PCP referred him here for continued evaluation given that patient has pending placement at long-term care facility tomorrow. Patient otherwise has no acute complaints. Related Data Home Medications Medication Instructions Recorded Confirmed amlodipine 5 mg tablet 5 mg PO DAILY Hypertension 08/06/17 03/22/22 carvedilol 25 mg tablet 25 mg PO BIDWMEAL Hypertension 08/06/17 03/22/22 mycophenolate mofetil 250 mg 250 mg PO BID AUTOIMMUNE 08/06/17 03/22/22 capsule furosemide 40 mg tablet 40 mg PO BID Fluid 02/27/20 03/22/22 lisinopril 20 1 tab PO DAILY Hypertension 12/10/20 03/22/22 mg-hydrochlorothiazide 12.5 mg tablet potassium chloride 10 mEq 20 meq PO DAILY Supplement 12/10/20 03/22/22 capsule,extended release atorvastatin 40 mg tablet 40 mg PO DAILY Cholesterol 01/31/21 03/22/22 aspirin 81 mg tablet,delayed 81 mg PO DAILY heart health 12/12/21 03/22/22 release mirabegron 50 mg tablet,extended 50 mg PO DAILY BLADDER 12/12/21 03/22/22 release 24 hr oxybutynin chloride 10 mg 10 mg PO DAILY BLADDER 02/15/22 03/22/22 tablet,extended release 24 hr azelastine 137 mcg (0.1 %) nasal 1 spray intranasal BID allergies 03/22/22 03/22/22 spray aerosol ferrous gluconate 324 mg (37.5 mg 324 mg PO DAILY iron 03/22/22 03/22/22 iron) tablet polyethylene glycol 3350 17 gram 17 g PO DAILY bowels 03/22/22 03/22/22 oral powder packet (Miralax) spironolactone 50 mg tablet 50 mg PO DAILY potassium sparing 03/22/22 03/22/22 Allergies Allergy/AdvReac Type Severity Reaction Status Date / Time No Known Allergies Allergy Verified 02/22/22 09:47 [facility] Medical History (Updated 03/22/22 @ 19:06 by Brian Metz MD) History of left heart catheterization (LHC) Sleep apnea Surgical History (Updated 03/22/22 @ 17:26 by Anahi Edmond RN) Hx of CABG Family History (Updated 03/22/22 @ 17:25 by Anahi Edmond RN) Other No significant family history Social History Smoking Status: Never smoker second hand exposure: No alcohol intake: never substance use type: denies use current occupational status: disabled Travel in the last 8 weeks: None household members: spouse housing: house current occupational exposures/hazards: No caffeine: No ROS Obtained: Yes All systems reviewed & no additional complaints except as documented Physical Exam General General appearance: alert and
[2022-03-22 19:13] LABS: Microscopic, Urine URINE MICROSCOPIC (MICROSCOPIC)
[2022-03-22 19:35] LABS: Appearance,Urine CLOUDY (Clear); Bilirubin,Urine Negative (Negative); Blood, Urine 1+ (Negative); Color,Urine YELLOW (Yellow); Glucose,Urine (UA) Negative (Negative); Ketones,Urine Negative (Negative); Leukocyte Esterase,Urine 2+ (Negative); Nitrate,Urine Negative (Negative); Protein,Urine Negative (Negative); Urobilinogen,Urine 0.2 EU/dl (0.2)
[2022-03-22 19:44] LABS: Bacteria,Urine 4+ /lpf
--- NOTE | 2022-03-22 20:13 | PC.NURSE ---
PT PULLED OUT HIS OWN IV. NEW IV INSERTED. PT TOLERATED WELL.
--- NOTE | 2022-03-22 20:17 | PC.NURSE ---
PT ARRIVED VIA STRETCHER TO FLOOR AT THIS TIME
[2022-03-23 04:00] VITALS: BP 114/61; PULSE 84; RESP 20; TEMP 36.7; O2SAT 99
--- NOTE | 2022-03-23 04:02 | PC.NURSE ---
Addendum entered by Yocasta Padilla RN 03/23/22 04:29: No camera available for admission wound pictures. Erythema noted on coccyx. 2 open ulcers noted on rt buttock. Original Note: Patient a&o x4. Patient has been q2 turn. UTI noted antibiotic started per sep. Plan is for patient to go to [facility] later today. [place] cath in place drainage clear yellow urine. VSS. Patient wears 3L nc continuously. Patient does have a productive cough this am.
[2022-03-23 04:37] VITALS: BMI 25.4
[2022-03-23 06:33] LABS: POC Glucose,Bedside 176 (70-110)
--- NOTE | 2022-03-23 07:16 | EXP.PHA.VTE ---
[facility] Pharmacy VTE Monitoring Patient Demographics Admission date: 03/22/22 Report Date: 03/23/22 Time: 07:16 Patient Allergies No Known Allergies Allergy (Verified 02/22/22 09:47) Height: 1.83 m Weight: 85.445 kg Current Active Problems (Updated 03/22/22 @ 19:06 by Brian Metz MD) Renal insufficiency (Acute) Acute uremia (Acute) Declining functional status (Acute) VTE Risk Labs: VTE Related Lab Results Hgb 10.1 g/dL (14.1-18.0) L 03/22/22 15:23 Hct 30.3 % (42.0-52.0) L 03/22/22 15:23 Plt Count 303 K/mm3 (142-424) 03/22/22 15:23 BUN 135 mg/dl (9-20) H* 03/22/22 15:23 Creatinine 3.50 mg/dl (0.66-1.25) H 03/22/22 15:23 Estimated Creat Clear 24 mL/min (50-200) 03/22/22 15:23 Was VTE Risk Assessment Performed: Yes VTE Score: 8 VTE Risk Level: Moderate Risk Prophylaxis VTE Prophylaxis Ordered?: Yes Types of VTE Prophylaxis: TEDS Knee High
--- NOTE | 2022-03-23 07:22 | P.CONPHA_ITS ---
Pharmacy Intervention Comments: home medication list verified using list from [facility] pharmacy and pt interview
--- NOTE | 2022-03-23 07:22 | HMH.PHAINT1 ---
Pharmacy Intervention Comments: home medication list verified using list from [facility] pharmacy and pt interview
[2022-03-23 07:35] LABS: Basophils % 0.7 % (0.1-2.0); Eosinophils # 0.3 K/mm3 (0.0-0.4); Eosinophils % 4.7 % (0.1-12.0); Hematocrit 31.8 % (42.0-52.0); Lymphocytes # 1.1 K/mm3 (0.7-4.5); Lymphocytes % 19.6 % (10-50); Mean Corpuscular HGB Conc 31.4 g/dL (31.8-35.4); Mean Corpuscular Hemoglobin 26.5 pg (27.0-31.2); Mean Corpuscular Volume 84.2 fl (80-94); Mean Platelet Volume 8.7 fl (7.4-10.4); Monocytes # 0.5 K/mm3 (0.1-1.0); Monocytes % 8.4 % (1.7-9.3); Neutrophils # 3.7 K/mm3 (1.8-7.8); Neutrophils % 66.5 % (37.0-80.0); Platelet Count 275 K/mm3 (142-424); Red Blood Count 3.77 M/mm3 (4.60-6.20); Red Cell Distribution Width 14.5 % (11.5-17.5); White Blood Count 5.5 K/mm3 (4.8-10.8)
[2022-03-23 07:44] LABS: Alanine Aminotransferase 15 U/L (12-78); Albumin Level 3.4 g/dl (3.5-5.0); Albumin/Globulin Ratio 1.1 (1.1-1.8); Alkaline Phosphatase 112 U/L (38-126); Anion Gap 11.2 mEq/L (5-15); Aspartate Amino Transferase 18 U/L (17-59); Bilirubin,Total 0.3 mg/dl (0.2-1.3); Calcium 9.2 mg/dl (8.4-10.2); Carbon Dioxide 23 mmol/L (22.0-30.0); Chloride 107 mmol/L (98-107); Creatinine Clearance Estimated 21 mL/min (50-200); Estimated Glomerular Filt Rate 19 ml/min (>60); GFR (African American) 23 ML/MIN (>60); Globulin 3.2 g/dL (1.3-3.2); Glucose 104 mg/dl (74-100); Potassium 3.2 mmoL/L (3.5-5.1); Sodium 138 mmol/L (136-145); Total Protein,Serum 6.6 g/dl (6.3-8.2)
[2022-03-23 08:00] VITALS: BP 121/70; PULSE 89; RESP 16; TEMP 36.6; O2SAT 100; O2SAT 98
[2022-03-23 08:03] LABS: Blood Urea Nitrogen 126 mg/dl (9-20)
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
--- NOTE | 2022-03-23 09:37 | HMH.OTEV ---
OT Inpatient Evaluation Rehab OT IP Evaluation Start: 03/23/22 08:03 Freq: ONCE Status: Complete Protocol: Document 03/23/22 09:23 TRACEY (Rec: 03/23/22 09:36 [facility] [id number]) Rehab OT IP Assessment Subjective History Pt oriented x 3 on arrival. Pt admitted via ED on 03/22/22 due to weakness. Prior to being admitted, pt was living at home with his . Pt had recently returned home after being at [facility] and had been home for ~1 week. Pt had met all rehab goals there and was sent home. Pt claims he was independent with dressing, bathing, and feeding. However , he explains he was dependent upon his to complete all IADLs. After reveiwing pt's chart, he may have not been receiving the help family believed due to possible decline in wifes mental status . He does use a walker during ambulation. Subjective I am still pretty weak. Pt resting in bed on arrival. Pt required max assist to complete bed mobility and go from supine to sitting at eob. Pt was able to sit at eob with cga/min assist. Pt stood from eob with max assist x 2. Pt then required mod assist x 2 to completed bed mobility and go from sitting to supine in bed. Pt was left with call martin and all other needs in reach. Objective Patient Orientation Person,Place,Day of Month Upper Extremity Gross ROM WFL Bed Mobility bed mobility-scooting,bed mobility - supine/sit,bed mobility - rolling Assist Level Maximum x 1 (75% assist) Rehab OT IP prob,goals,plan Problems Date of Evaluation: 03/23/22 OT IP Problems Bed Mobility,Transfers,Balance ,Self care,Safety Rehab Potential Rehab Potential Good Equipment Needs
[2022-03-23 11:26] VITALS: BMI 25.4
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
--- NOTE | 2022-03-23 14:59 | PC.NURSE ---
rounded on patient no concerns or questions. assisted with a drink of water and placed humidification on oxygen because of patient complaints of dry nose.call light within reach
[2022-03-23 15:50] VITALS: BP 112/55; PULSE 81; RESP 16; TEMP 36.7; O2SAT 100
--- NOTE | 2022-03-23 16:10 | PC.NURSE ---
pt is aox4, able to make needs known to staff. ag cath in place. denies n/v/d. tolerating 3lnc well
[2022-03-23 20:00] VITALS: BP 98/55; PULSE 90; RESP 17; TEMP 36.6; O2SAT 100
[2022-03-24 04:00] VITALS: BP 110/68; PULSE 64; RESP 18; TEMP 36.8; O2SAT 96
[2022-03-24 04:48] LABS: POC Glucose,Bedside 154 (70-110)
[2022-03-24 05:00] VITALS: BMI 26.4
--- NOTE | 2022-03-24 05:09 | PC.NURSE ---
no changes from previous assessment, pt is alert and oriented x4, f/c to bsd with clear yellow urine noted, redness noted to rectal area and barrier cream applied, VSS, no other issues or concerns at this time.
[2022-03-24 06:52] LABS: POC Glucose,Bedside 109 (70-110)
[2022-03-24 06:57] LABS: Basophils % 0.5 % (0.1-2.0); Eosinophils # 0.2 K/mm3 (0.0-0.4); Eosinophils % 4.3 % (0.1-12.0); Hematocrit 31.8 % (42.0-52.0); Hemoglobin 9.9 g/dL (14.1-18.0); Lymphocytes % 18.1 % (10-50); Mean Corpuscular HGB Conc 31.1 g/dL (31.8-35.4); Mean Corpuscular Hemoglobin 26.7 pg (27.0-31.2); Mean Corpuscular Volume 85.9 fl (80-94); Mean Platelet Volume 8.9 fl (7.4-10.4); Monocytes # 0.4 K/mm3 (0.1-1.0); Monocytes % 7.8 % (1.7-9.3); Neutrophils # 3.9 K/mm3 (1.8-7.8); Neutrophils % 69.2 % (37.0-80.0); Platelet Count 245 K/mm3 (142-424); Red Cell Distribution Width 14.6 % (11.5-17.5); White Blood Count 5.7 K/mm3 (4.8-10.8)
[2022-03-24 07:24] LABS: Chloride 110 mmol/L (98-107); Sodium 139 mmol/L (136-145)
[2022-03-24 07:25] LABS: Potassium 3.3 mmoL/L (3.5-5.1)
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
[2022-03-24 07:27] LABS: Creatinine Clearance Estimated 29 mL/min (50-200); Estimated Glomerular Filt Rate 26 ml/min (>60); GFR (African American) 31 ML/MIN (>60)
[2022-03-24 07:28] LABS: Anion Gap 11.3 mEq/L (5-15); Carbon Dioxide 21 mmol/L (22.0-30.0); Glucose 109 mg/dl (74-100)
[2022-03-24 07:47] LABS: Blood Urea Nitrogen 106 mg/dl (9-20)
[2022-03-24 08:00] VITALS: BP 125/62; PULSE 104; RESP 18; TEMP 36.7; O2SAT 93
--- NOTE | 2022-03-24 08:00 | PC.NURSE ---
Spoke with lab about critical BUN of 1.06
--- NOTE | 2022-03-24 08:15 | PC.NURSE ---
Told Dr. Lucero about pts critical lab on BUN.
--- NOTE | 2022-03-24 12:25 | PC.NURSE ---
Removed existing ag, and replaced it with a 16 fr and placed 10mls of NS in balloon. Pt has clear urine draining into new FC. I have dated and initialed new bag.
--- NOTE | 2022-03-24 12:38 | PC.NURSE ---
Called report to [facility].
--- NOTE | 2022-03-24 12:48 | PC.NURSE ---
Spoke with care management waiting for PA for ambulance. Once done will call EMS back to get transport.
--- NOTE | 2022-03-28 14:01 | CARE MANAGER ---
Called and spoke with nursing staff at [facility], r/t post discharge status. Nurse states that they received everything needed at discharge and that the patient is doing well. She had no issues or concerns at this time.
--- NOTE | 2022-03-28 14:05 | CARE MANAGER ---
Called and spoke with nursing staff at [facility]. Nurse stated that they had received everything needed at transfer and that patient is doing well with no known needs at this time.
== END 2022-03-24 13:21 ==
LOC: ER 15:48 → 2ND 19:05
PROVIDERS: Admitting Provider Internal Medicine Adolescent Medicine; Emergency Provider Emergency Medicine; PCP Family Medicine; Visit Provider Internal Medicine Adolescent Medicine
DX: R53.81 Other malaise (principal); Z20.822 Contact with and (suspected) exposure to COVID-19; N17.9 Acute kidney failure, unspecified; N18.9 Chronic kidney disease, unspecified; R29.6 Repeated falls; D63.8 Anemia in other chronic diseases classified elsewhere; N39.0 Urinary tract infection, site not specified; E46 Unspecified protein-calorie malnutrition; Z68.21 Body mass index [BMI] 21.0-21.9, adult; Z79.899 Other long term (current) drug therapy; I10 Essential (primary) hypertension
CPT/HCPCS: G0378; 36415; 80048; 80053; 81001; 82962; 85025; 87081; 87086; 87088; 87186; 93005; 97110; 97162; 97166; 97530; 99285; C9803; J0696; J1956; U0003; U0005

== ENCOUNTER → 2022-04-22 11:05 | Outpatient (CLI) | payer MEDICARE, SELFPAY ==
[2022-04-22 12:05] LABS: Chloride 102 mmol/L (98-107); Potassium 5.5 mmoL/L (3.5-5.1); Sodium 136 mmol/L (136-145)
[2022-04-22 12:08] LABS: Anion Gap 16.5 mEq/L (5-15); Blood Urea Nitrogen 76 mg/dl (9-20); Calcium 9.2 mg/dl (8.4-10.2); Carbon Dioxide 23 mmol/L (22.0-30.0); Estimated Glomerular Filt Rate 22 ml/min (>60); GFR (African American) 26 ML/MIN (>60); Glucose 117 mg/dl (74-100)
== END ==
PROVIDERS: Nurse Practitioner Family; PCP Internal Medicine Adolescent Medicine; Visit Provider Internal Medicine Adolescent Medicine
DX: N39.0 Urinary tract infection, site not specified (principal); B96.1 Klebsiella pneumoniae [K. pneumoniae] as the cause of diseases classified elsewhere
CPT/HCPCS: 80048

== ENCOUNTER → 2022-05-04 10:27 | Outpatient (CLI) | payer MEDICARE, SELFPAY | LOC: RT 10:28 | PROVIDERS: PCP Family Medicine; Visit Provider Physician Assistant | DX: I25.118 Atherosclerotic heart disease of native coronary artery with other forms of angina pectoris (principal); I48.91 Unspecified atrial fibrillation; N28.9 Disorder of kidney and ureter, unspecified | CPT/HCPCS: 93225 ==

== ENCOUNTER → 2022-06-29 01:25 | Outpatient (CLI) | payer MEDICARE, SELFPAY ==
[2022-06-29 01:52] LABS: Microscopic, Urine URINE MICROSCOPIC (MICROSCOPIC)
[2022-06-29 02:07] LABS: Appearance,Urine CLOUDY (Clear); Blood, Urine 3+ (Negative); Color,Urine BROWN (Yellow); Glucose,Urine (UA) Negative (Negative); Ketones,Urine Negative (Negative); Leukocyte Esterase,Urine 3+ (Negative); Nitrate,Urine POSITIVE (Negative); PH,Urine 8.5 (5.0-8.5); Protein,Urine 3+ (Negative); Specific Gravity, Urine 1.015 (1.005-1.030); Urobilinogen,Urine 0.2 EU/dl (0.2)
[2022-06-29 02:12] LABS: Bilirubin,Urine Negative (Negative)
[2022-06-29 02:48] LABS: Bacteria,Urine 4+ /lpf
[2022-06-29 02:49] LABS: Triple Phosphate Crystal,Urine 2+ /lpf
== END | disposition home or self-care (01) ==
PROVIDERS: PCP Internal Medicine Adolescent Medicine; Visit Provider Internal Medicine Adolescent Medicine
DX: R33.9 Retention of urine, unspecified (principal); B96.4 Proteus (mirabilis) (morganii) as the cause of diseases classified elsewhere
CPT/HCPCS: 81001; 87086; 87088; 87186

== ENCOUNTER → 2022-06-30 18:44 | Outpatient (CLI) | payer MEDICARE, SELFPAY ==
[2022-06-30 19:03] LABS: Basophils % 0.2 % (0.1-2.0); Eosinophils % 0.3 % (0.1-12.0); Hematocrit 31.8 % (42.0-52.0); Hemoglobin 10.1 g/dL (14.1-18.0); Lymphocytes % 7.4 % (10-50); Mean Corpuscular HGB Conc 31.7 g/dL (31.8-35.4); Mean Corpuscular Hemoglobin 27.9 pg (27.0-31.2); Mean Corpuscular Volume 87.9 fl (80-94); Mean Platelet Volume 8.8 fl (7.4-10.4); Monocytes # 0.8 K/mm3 (0.1-1.0); Monocytes % 5.8 % (1.7-9.3); Neutrophils # 11.8 K/mm3 (1.8-7.8); Neutrophils % 86.3 % (37.0-80.0); Platelet Count 290 K/mm3 (142-424); Red Blood Count 3.62 M/mm3 (4.60-6.20); Red Cell Distribution Width 15.4 % (11.5-17.5); White Blood Count 13.6 K/mm3 (4.8-10.8)
[2022-06-30 19:11] LABS: Anion Gap 10.9 mEq/L (5-15); Blood Urea Nitrogen 47 mg/dl (9-20); Carbon Dioxide 27 mmol/L (22.0-30.0); Chloride 102 mmol/L (98-107); Estimated Glomerular Filt Rate 30 ml/min (>60); GFR (African American) 37 ML/MIN (>60); Glucose 106 mg/dl (74-100); Potassium 3.9 mmoL/L (3.5-5.1); Sodium 136 mmol/L (136-145)
[2022-06-30 19:18] LABS: MANUAL DIFFERENTIAL MANUAL DIFFERENTIAL (MANUAL DIFF)
[2022-06-30 20:30] LABS: Lymphocytes % 18 % (10-50); Neutrophils % 77 % (42-76); Platelet Estimate Normal; RBC Morphology Normal; Rouleaux 2+; Total Cells Counted 100
== END ==
PROVIDERS: PCP Internal Medicine Adolescent Medicine; Visit Provider Internal Medicine Adolescent Medicine
DX: I25.10 Atherosclerotic heart disease of native coronary artery without angina pectoris (principal)
CPT/HCPCS: 80048; 85007; 85025

== ENCOUNTER → 2022-07-27 17:04 | Outpatient (CLI) | payer MEDICARE, SELFPAY | PROVIDERS: PCP Nurse Practitioner Family; Visit Provider Internal Medicine Adolescent Medicine | DX: R09.89 Other specified symptoms and signs involving the circulatory and respiratory systems (principal) | CPT/HCPCS: 87275; 87276 ==

== ENCOUNTER → 2023-03-13 14:01 | Outpatient (CLI) | payer MEDICARE, SELFPAY ==
[2023-03-13 14:09] LABS: Microscopic, Urine URINE MICROSCOPIC (MICROSCOPIC)
[2023-03-13 14:14] LABS: Appearance,Urine CLEAR (Clear); Bilirubin,Urine Negative (Negative); Blood, Urine TRACE-I (Negative); Color,Urine YELLOW (Yellow); Glucose,Urine (UA) Negative (Negative); Ketones,Urine Negative (Negative); Leukocyte Esterase,Urine Negative (Negative); Nitrate,Urine Negative (Negative); PH,Urine 6.5 (5.0-8.5); Protein,Urine 3+ (Negative); Urobilinogen,Urine 0.2 EU/dl (0.2)
[2023-03-13 14:57] LABS: RBC,Urine Occasional #/hpf (0-3); Squamous Epithelial Cell,Urine Occasional #/hpf (0-5)
== END ==
PROVIDERS: PCP Nurse Practitioner Family; Visit Provider Nurse Practitioner Family
DX: R46.89 Other symptoms and signs involving appearance and behavior (principal)
CPT/HCPCS: 81001

== ENCOUNTER 2023-05-20 10:32 | Emergency (ER) | payer MEDICARE, SELFPAY ==
[2023-05-20] VITALS (7 sets, daily range): BP systolic 138–163; BP diastolic 78–92; PULSE 87–97; RESP 14–21; TEMP 36.6; O2SAT 94–98; BMI 29.8
--- NOTE | 2023-05-20 10:38 | CT_ITS ---
PROCEDURE INFORMATION: Exam: CT Head Without Contrast Exam date and time: 05/20/2023 11:37 AM Age: 83 years old Clinical indication: Altered mental status/memory loss; Additional info: Ams-- TECHNIQUE: Imaging protocol: Computed tomography of the head without contrast. Radiation optimization: All CT scans at this facility use at least one of these dose optimization techniques: automated exposure control; mA and/or kV adjustment per patient size (includes targeted exams where dose is matched to clinical indication); or iterative reconstruction. REPORTING DATA: Count of CT and Cardiac NM exams in prior 12 months: This patient has received 0 known CTs and 0 known cardiac nuclear medicine studies in the 12 months prior to the current study. COMPARISON: HEADWO CT head/brain wo con 10/30/2018 12:14 PM FINDINGS: Brain: There is no evidence of acute intracranial hemorrhage, extra-axial collection or locoregional mass effect. There are scattered hypodensities in the periventricular and subcortical white matter. The appearance is nonspecific, but most likely represents chronic small vessel disease in a person of this age Cerebral ventricles: The ventricles, sulci and cisterns are normal in size and configuration for patient's age. No hydrocephalus or midline structure shift Pituitary gland and sella: Sellar/parasellar structures, craniocervical junction and orbits are unremarkable Paranasal sinuses: Visualized sinuses are unremarkable. No fluid levels. Mastoid air cells: Visualized mastoid air cells are well aerated. Bones/joints: No calvarial fracture Soft tissues: Unremarkable. IMPRESSION: No acute intracranial abnormality. No calvarial fracture.
--- NOTE | 2023-05-20 10:38 | XR_ITS ---
PROCEDURE INFORMATION: Exam: XR Chest Exam date and time: 05/20/2023 11:56 AM Age: 83 years old Clinical indication: Shortness of breath; Additional info: Diminished L breath sounds TECHNIQUE: Imaging protocol: Radiologic exam of the chest. Views: 1 view. COMPARISON: CR XR CHEST CHP 1V 12/24/2019 9:52 AM FINDINGS: Lungs: Compressive atelectasis in left lung Pleural spaces: There is a large left pleural effusion opacifying the left pulmonary field. Heart/Mediastinum: Unremarkable. No cardiomegaly. Bones/joints: Unremarkable. IMPRESSION: There is a large left pleural effusion opacifying the left pulmonary field.
--- NOTE | 2023-05-20 10:41 | HMH.EDGENADL ---
Discharge Plan Disposition Patient Disposition: Xfer Short-Term Hosp Condition: Fair Chief Complaint: Altered Mental Status Prescriptions Prescriptions: No Action potassium chloride 10 mEq tablet,ER particles/crystals 10 meq PO DAILY furosemide 40 mg tablet 40 mg PO BID mycophenolate mofetil 500 mg tablet 500 mg PO BID acetaminophen 500 mg tablet 1,000 mg PO Q6H PRN trazodone 150 mg tablet 150 mg PO HS carvedilol 25 MG tablet 25 mg PO BID Patient Comments: atorvastatin 40 MG tablet 40 mg PO HS polyethylene glycol 3350 [Miralax] 17 gram Powder In Packet 17 g PO DAILYP PRN (Reason: Constipation) aspirin 81 MG tablet,delayed release (DR/EC) 81 mg PO DAILY Referrals Follow up/Referrals: Padmini Patricia APRN [Primary Care Provider] - See instructions Clinical Impressions Clinical Impression: Pleural effusion, left Altered mental status Qualifiers: Altered mental status type: unspecified Qualified Code(s): R41.82 - Altered mental status, unspecified Instructions Patient Instructions: DI for Altered Mental Status Discharge ED Provider: Nguyen Johnson General Adult HPI General Chief complaint: Altered Mental Status Stated complaint: AMS Time Seen by Provider: 05/20/23 10:38 History of Present Illness HPI narrative: This 83-year-old male with a history of A-fib, prior UTI, CAD, hypertension, hyperlipidemia, CKD presents to the emergency department with concerns of altered mental status from his usp. Call went out to EMS for patient being altered. On their arrival, [id number] glucose was 99, he was hemodynamically stable. Reportedly patient is normally conversational and today is sleepy with decreased verbal interaction. No history of falls was provided. Patient sometimes says his head hurts, other times he does not say this. He does not complain of other areas of pain. Related Data Home Medications Medication Instructions Recorded Confirmed carvedilol 25 mg tablet 25 mg PO BID Hypertension 08/06/17 05/08/23 furosemide 40 mg tablet 40 mg PO BID swelling 02/27/20 05/08/23 atorvastatin 40 mg tablet 40 mg PO HS Cholesterol 01/31/21 05/08/23 aspirin 81 mg tablet,delayed 81 mg PO DAILY heart health 12/12/21 05/08/23 release polyethylene glycol 3350 17 gram 17 g PO DAILYP PRN Constipation 03/22/22 05/08/23 oral powder packet (Miralax) mycophenolate mofetil 500 mg tablet 500 mg PO BID 05/04/22 05/08/23 acetaminophen 500 mg tablet 1,000 mg PO Q6H PRN 11/06/22 05/08/23 trazodone 150 mg tablet 150 mg PO HS 11/06/22 05/08/23 potassium chloride 10 mEq 10 meq PO DAILY 05/08/23 05/08/23 tablet,extended release(part/cryst) Allergies Allergy/AdvReac Type Severity Reaction Status Date / Time No Known Allergies Allergy Verified 05/20/23 11:01 [facility] Disclaimer: The information contained in this section may have been updated after the patient was seen, as this information can be updated by other users. Medical History History of left heart catheterization (LHC) History of prostate cancer New onset a-fib Paroxysmal atrial fibrillation Renal disease Sleep apnea Surgical History Hx of CABG Family History Other No significant family history Social History Smoking Status: Never smoker second hand exposure: No alcohol intake: never substance use type: denies use current occupational status: disabled Travel in the last 8 weeks: None household members: spouse housing: house current occupational exposures/hazards: No caffeine: No ROS Obtained: Yes unobtainable due to mental status Patient intermittently says yes to head pain, other times says no, otherwise difficult to obtain ROS from due
--- NOTE | 2023-05-20 10:47 | PC.NURSE ---
staff at BS
[2023-05-20 11:00] LABS: Appearance,Urine CLEAR (Clear); Bilirubin,Urine Negative (Negative); Blood, Urine 1+ (Negative); Color,Urine YELLOW (Yellow); Glucose,Urine (UA) Negative (Negative); Ketones,Urine Negative (Negative); Leukocyte Esterase,Urine 2+ (Negative); Microscopic, Urine URINE MICROSCOPIC (MICROSCOPIC); Nitrate,Urine Negative (Negative); Protein,Urine 3+ (Negative); Specific Gravity, Urine 1.025 (1.005-1.030)
[2023-05-20 11:03] LABS: Bacteria,Urine 1+ /lpf; Squamous Epithelial Cell,Urine Occasional #/hpf (0-5)
--- NOTE | 2023-05-20 11:06 | ECG_ITS ---
APPROVED REPORT Exam: Resting ECG HR:86 bpm ECG Measurements Heart Rate 86 AXES QRSd 94 QRS 19 QT 365 T -25 QTc 408 Conclusion ATRIAL FIBRILLATION WITH ABERRANT CONDUCTION OR VENTRICULAR PREMATURE COMPLEXES LOW QRS VOLTAGE IN PRECORDIAL LEADS [QRS DEFLECTION < 1.0 mV IN CHEST LEADS] NONSPECIFIC T-WAVE ABNORMALITY ABNORMAL RHYTHM ECG UNCONFIRMED REPORT Electronically signed by : Rohan Dior MD 05/21/2023 20:27:12
[2023-05-20 11:07] LABS: VBG Base Excess 2.1 mmol/L (-2.4-2.3); VBG HCO3 26.9 mmol/L (23-30); VBG Oxygen Saturation 96.2 % (50-70); VBG PCO2 44.5 mmol/L (35-51); VBG PO2 82.5 mmol/L (28-40); VBG Total CO2 28.3 mmol/L (23-27)
[2023-05-20 11:10] LABS: Chloride 105 mmol/L (98-107); Potassium 4.1 mmoL/L (3.5-5.1); Sodium 139 mmol/L (136-145)
--- NOTE | 2023-05-20 11:10 | PC.NURSE ---
pt resting in bed with family at bs call light at bs no other needs
[2023-05-20 11:13] LABS: Alanine Aminotransferase 15 U/L (12-78); Albumin Level 3.4 g/dl (3.5-5.0); Albumin/Globulin Ratio 0.9 (1.1-1.8); Alkaline Phosphatase 117 U/L (38-126); Anion Gap 7.1 mEq/L (5-15); Aspartate Amino Transferase 27 U/L (17-59); Bilirubin,Total 0.7 mg/dl (0.2-1.3); Blood Urea Nitrogen 32 mg/dl (9-20); Calcium 8.9 mg/dl (8.4-10.2); Carbon Dioxide 31 mmol/L (22.0-30.0); Creatinine Clearance Estimated 51 mL/min (50-200); Estimated Glomerular Filt Rate 44 ml/min (>60); GFR (African American) 54 ML/MIN (>60); Globulin 3.9 g/dL (1.3-3.2); Glucose 101 mg/dl (74-100); Total Protein,Serum 7.3 g/dl (6.3-8.2)
--- NOTE | 2023-05-20 11:43 | PC.NURSE ---
Pt back to room from ct
[2023-05-20 11:45] LABS: Basophils % 0.7 % (0.1-2.0); Eosinophils # 0.3 K/mm3 (0.0-0.4); Eosinophils % 5.2 % (0.1-12.0); Hematocrit 35.3 % (42.0-52.0); Hemoglobin 11.5 g/dL (14.1-18.0); Lymphocytes # 1.6 K/mm3 (0.7-4.5); Lymphocytes % 27.7 % (10-50); Mean Corpuscular HGB Conc 32.7 g/dL (31.8-35.4); Mean Corpuscular Hemoglobin 27.4 pg (27.0-31.2); Mean Corpuscular Volume 83.9 fl (80-94); Mean Platelet Volume 9.2 fl (7.4-10.4); Monocytes # 0.5 K/mm3 (0.1-1.0); Monocytes % 8.9 % (1.7-9.3); Neutrophils # 3.4 K/mm3 (1.8-7.8); Neutrophils % 57.4 % (37.0-80.0); Platelet Count 254 K/mm3 (142-424); Red Cell Distribution Width 15.3 % (11.5-17.5); White Blood Count 5.9 K/mm3 (4.8-10.8)
--- NOTE | 2023-05-20 11:46 | CT_ITS ---
PROCEDURE INFORMATION: Exam: CTA Head With Contrast, Arteriography Exam date and time: 05/20/2023 1:18 PM Age: 83 years old Clinical indication: Other: AMS TECHNIQUE: Imaging protocol: Computed tomographic angiography of the head with contrast. Exam focused on the arteries. 3D rendering (Not supervised by radiologist): MIP and/or 3D reconstructed images were created by the technologist. Radiation optimization: All CT scans at this facility use at least one of these dose optimization techniques: automated exposure control; mA and/or kV adjustment per patient size (includes targeted exams where dose is matched to clinical indication); or iterative reconstruction. Contrast material: ISOVUE; Contrast volume: 100 ml; Contrast route: INTRAVENOUS (IV); REPORTING DATA: Count of CT and Cardiac NM exams in prior 12 months: This patient has received 0 known CTs and 0 known cardiac nuclear medicine studies in the 12 months prior to the current study. COMPARISON: CT HEAD/BRAIN WO CON 05/20/2023 11:37 AM FINDINGS: ANTERIOR CIRCULATION: Right internal carotid artery: There is mild stenosis of the cavernous and supraclinoid segments of the right internal carotid artery secondary to calcified plaque. Right middle cerebral artery: No occlusion or significant stenosis. No aneurysm. Right anterior cerebral artery: No occlusion or significant stenosis. No aneurysm. Left internal carotid artery: There is [id number] stenosis of the cavernous and supraclinoid segments of the left internal carotid artery secondary to calcified plaque. Left middle cerebral artery: No occlusion or significant stenosis. No aneurysm. Left anterior cerebral artery: No occlusion or significant stenosis. No aneurysm. POSTERIOR CIRCULATION: Right vertebral artery: No occlusion or significant stenosis. No aneurysm. Left vertebral artery: No occlusion or significant stenosis. No aneurysm. Basilar artery: No occlusion or significant stenosis. No aneurysm. Right posterior cerebral artery: No occlusion or significant stenosis. No aneurysm. Left posterior cerebral artery: No occlusion or significant stenosis. No aneurysm. Brain: No definite mass, mass effect, or midline shift. Cerebral ventricles: No ventriculomegaly. Bones/joints: Unremarkable. No acute fracture. Soft tissues: Unremarkable. IMPRESSION: Bilateral internal carotid artery stenosis left greater than right. Otherwise patent [id number].
--- NOTE | 2023-05-20 11:46 | CT_ITS ---
PROCEDURE INFORMATION: Exam: CTA Neck With Contrast Exam date and time: 05/20/2023 1:18 PM Age: 83 years old Clinical indication: Other: AMS TECHNIQUE: Imaging protocol: Computed tomographic angiography of the neck with contrast. Exam focused on the cervical segments of the vasculature. 3D rendering (Not supervised by radiologist): MIP and/or 3D reconstructed images were created by the technologist. Radiation optimization: All CT scans at this facility use at least one of these dose optimization techniques: automated exposure control; mA and/or kV adjustment per patient size (includes targeted exams where dose is matched to clinical indication); or iterative reconstruction. Contrast material: ISOVUE; Contrast volume: 100 ml; Contrast route: INTRAVENOUS (IV); REPORTING DATA: Count of CT and Cardiac NM exams in prior 12 months: This patient has received 0 known CTs and 0 known cardiac nuclear medicine studies in the 12 months prior to the current study. COMPARISON: [facility] CT cervical spine wo con 10/30/2018 12:19 PM FINDINGS: Right common carotid artery: There is moderate plaque at the right carotid bulb and bifurcation. There is stenosis of the carotid bulb measuring less than 50%. Right internal carotid artery: There is mild proximal right internal carotid artery plaque causing stenosis measuring less than 50%. The remainder of the right internal carotid artery is patent. Right external carotid artery: No occlusion or stenosis of the origin. Left common carotid artery: There is moderate plaque at the left carotid bulb and bifurcation. There is stenosis of the carotid bulb measuring less than 50%. Left internal carotid artery: There is plaque seen throughout the proximal left internal carotid artery causing stenosis measuring up to 60%. The remainder of the left internal carotid artery is patent. Left external carotid artery: No occlusion or stenosis of the origin. Right vertebral artery: No stenosis. No dissection or occlusion. Left vertebral artery: No stenosis. No dissection or occlusion. Soft tissues: Normal. No significant soft tissue swelling. Bones/joints: No acute fracture. Lungs: There is a large left pleural effusion with atelectasis of a large portion of the left lung. Please refer to dedicated chest CT. IMPRESSION: 1. Moderate stenosis of the proximal left internal carotid artery. 2. Mild stenosis of the carotid bulbs. 3. Mild stenosis of the proximal right internal carotid artery. REFERENCES: NASCET CRITERIA. The degree of stenosis in the cervical segment of the internal carotid artery is based on NASCET criteria. Normal is no stenosis. Mild is less than 50% stenosis. Moderate is 50-69% stenosis. Severe is 70% to 99% stenosis. Total occlusion is no detectable patent lumen.
--- NOTE | 2023-05-20 11:46 | CT_ITS ---
PROCEDURE INFORMATION: Exam: CT Chest With Contrast; Diagnostic Exam date and time: 05/20/2023 1:24 PM Age: 83 years old Clinical indication: Other: AMS; Additional info: AMS absent L breath sounds TECHNIQUE: Imaging protocol: Diagnostic computed tomography of the chest with contrast. Radiation optimization: All CT scans at this facility use at least one of these dose optimization techniques: automated exposure control; mA and/or kV adjustment per patient size (includes targeted exams where dose is matched to clinical indication); or iterative reconstruction. Contrast material: ISOVUE; Contrast volume: 70 ml; Contrast route: IV; REPORTING DATA: Count of CT and Cardiac NM exams in prior 12 months: This patient has received 0 known CTs and 0 known cardiac nuclear medicine studies in the 12 months prior to the current study. COMPARISON: CR XR CHEST PORTABLE 05/20/2023 11:56 AM FINDINGS: Thyroid: There is a 2 cm left thyroid nodule, with calcifications. Consider nonurgent thyroid ultrasound for further evaluation. Lungs: Diffuse interlobular septal thickening, consistent with pulmonary edema. No findings to suggest pneumonia. Pleural spaces: Large left pleural effusion, with compressive atelectasis of the entire left lower lobe, and compressive atelectasis of the superior posterior segments of left upper lobe. Heart: There is a filling defect within left atrial appendage, concerning for left atrial appendage thrombus. Lymph nodes: Unremarkable. No enlarged lymph nodes. Vasculature: Coronary artery and aortic atherosclerosis. Dilated main pulmonary artery measuring up to 4 cm, nonspecific, but can be seen in setting of right heart strain versus chronic pulmonary hypertension. No pulmonary embolism. Kidneys and ureters: Multiple, simple, bilateral, partially-visualized, renal cysts, requiring no further follow-up. Bones/joints: Unremarkable. No acute fracture. Soft tissues: Unremarkable. IMPRESSION: 1. Large left pleural effusion, with compressive atelectasis of the entire left lower lobe, and compressive atelectasis of the superior posterior segments of left upper lobe. No findings to suggest pneumonia. 2. There is a filling defect within left atrial appendage, concerning for left atrial appendage thrombus. 3. Dilated main pulmonary artery measuring up to 4 cm, nonspecific, but can be seen in setting of right heart strain versus chronic pulmonary hypertension. No pulmonary embolism. 4. Diffuse interlobular septal thickening, consistent with pulmonary edema. 5. There is a 2 cm left thyroid nodule, with calcifications. Consider nonurgent thyroid ultrasound for further evaluation. COMMENTS: 1. Consistent with the [employer]'s Incidental Findings Committee white paper (J Am Marcela Radiol 2018): Any incidental renal lesion less than 1 cm or classified as too small to characterize, or any incidental cystic renal lesion characterized as simple-appearing, is likely benign. No follow-up imaging is recommended for these lesions per consensus recommendations based on imaging criteria. 2. Consistent with the [employer]'s Incidental Findings Committee white paper (J Am Marcela Radiol 2015): In patients aged 35 years and older with an incidental thyroid nodule equal to or greater than 1.[address], MRI or extrathyroidal US, further evaluation with dedicated thyroid US is recommended for patients with normal life expectancy and without comorbidities. For smaller nodules without suspicious features, no further evaluation or follow up is recommended.
--- NOTE | 2023-05-20 13:11 | PC.NURSE ---
PT TO CT
--- NOTE | 2023-05-20 13:52 | PC.NURSE ---
[facility] for
--- NOTE | 2023-05-20 14:07 | PC.NURSE ---
DR HART AT BEDSIDE TO UPDATE FAMILY
--- NOTE | 2023-05-20 15:02 | PC.NURSE ---
Roberto E[facility] here for Transport to ed
--- NOTE | 2023-05-20 21:48 | PC.NURSE ---
medical records sent to [facility]
== END 2023-05-20 16:16 | disposition short-term general hospital (02) ==
PROVIDERS: Emergency Provider Emergency Medicine; PCP Nurse Practitioner Family
DX: J90 Pleural effusion, not elsewhere classified (principal); I48.91 Unspecified atrial fibrillation; R41.82 Altered mental status, unspecified; N39.0 Urinary tract infection, site not specified; B96.4 Proteus (mirabilis) (morganii) as the cause of diseases classified elsewhere; I25.10 Atherosclerotic heart disease of native coronary artery without angina pectoris; I11.9 Hypertensive heart disease without heart failure; E78.5 Hyperlipidemia, unspecified; N18.9 Chronic kidney disease, unspecified
CPT/HCPCS: 70450; 70496; 70498; 71045; 71260; 80053; 81001; 82803; 83605; 85025; 87086; 93005; 96361; 96365; 96366; 96367; 99285; J2543; Q9967